=== PATIENT | male | born 1940 | race African-American/Black ===

== ENCOUNTER 2016-11-23 15:03 | Inpatient (IN) | payer MEDICARE, OTHER ==
[2016-11-23] MEDS ORDERED: NORMAL SALINE 1000 ML 1,000 ML IV ONE (15:41)
[2016-11-23] MEDS ORDERED: ASPIRIN 81 MG TABLET, CHEWABLE PO ONE (15:41)
[2016-11-23 16:34] LABS: PROTHROMBIN TIME 14.1 SEC (11.4-15.4)
[2016-11-23 16:35] LABS: ABSOLUTE EOSINOPHILS # (AUTO) 0.3 10^3/uL (0.0-0.6); ABSOLUTE LYMPHOCYTES (AUTO) 0.5 10^3/uL (0.5-4.7); ABSOLUTE MONOCYTES (AUTO) 0.4 10^3/uL (0.1-1.4); ABSOLUTE NEUT (AUTO) 3.4 10^3/uL (1.7-8.2); BASOPHILS % (AUTO) 0.4 % (0-2); EOSINOPHILS % (AUTO) 5.9 % (0-6); HEMATOCRIT 33.5 % (37.9-51.0); HEMOGLOBIN 11.3 g/dL (13.5-17.0); HGB HCT DIFFERENCE 0.4; LYMPHOCYTES % (AUTO) 11.1 % (13-45); MEAN CORPUSCULAR HEMOGLOBIN 30.6 pg (27.0-33.4); MEAN CORPUSCULAR HGB CONC 33.7 g/dL (32.0-36.0); MEAN CORPUSCULAR VOLUME 91 fl (80-97); RED BLOOD COUNT 3.69 10^6/uL (4.35-5.55); RED CELL DISTRIBUTION WIDTH 14.6 % (11.5-14.0); SEGMENTED NEUTROPHILS % (AUTO) 74.6 % (42-78); WHITE BLOOD COUNT 4.6 10^3/uL (4.0-10.5)
[2016-11-23 16:48] LABS: ALANINE AMINOTRANSFERASE 28 U/L (21-72); ALBUMIN 3.2 g/dL (3.5-5.0); ALKALINE PHOSPHATASE 102 U/L (38-126); ANION GAP 11 (5-19); ASPARTATE AMINO TRANSFERASE 20 U/L (17-59); BILIRUBIN,DIRECT 0.2 mg/dL (0.0-0.4); BILIRUBIN,TOTAL 0.7 mg/dL (0.2-1.3); BLOOD UREA NITROGEN 14 mg/dL (7-20); CALCIUM 8.8 mg/dL (8.4-10.2); CARBON DIOXIDE 23 mmol/L (22-30); CHLORIDE 106 mmol/L (98-107); CREATINE KINASE 71 U/L (55-170); CREATININE RESULT 0.95 mg/dL (0.52-1.25); GLUCOSE 104 mg/dL (75-110); POTASSIUM 4.3 mmol/L (3.6-5.0); SODIUM 140.4 mmol/L (137-145); TOTAL PROTEIN 5.6 g/dL (6.3-8.2)
[2016-11-23 16:57] LABS: CREATINE KINASE MB 0.37 ng/mL (<4.55)
[2016-11-23 16:59] LABS: TROPONIN I < 0.012 ng/mL
--- NOTE | 2016-11-23 17:08 | ER Document Report ---
ED Syncope and Near Syncope - General Mode of Arrival: Medic Information source: Patient TRAVEL OUTSIDE OF THE [place] IN LAST 30 DAYS: No - HPI Patient complains to provider of: Fainting Context: Other - See above <SARIKA HARTLEY - Last Filed: 11/23/16 18:47> <SAMANTHA ANGELO - Last Filed: 11/23/16 22:23> - General Chief Complaint: Passed Out Prior to Arrival Stated Complaint: POSSIBLE SYNCOPE Time Seen by Provider: 11/23/16 17:05 Notes: Patient is a 76 year old male, with a past medical history including CAD and pacemaker insertion, who presents to the emergency department complaining of syncope just prior to arrival. Patient reports that he felt lightheaded and then lost consciousness and woke up on the floor. Patient also complains of nausea, mild chest pain, and a cough onset 2 days ago. Patient states that he has been eating and drinking normally and his blood pressure is usually fine. Patient denies vomiting, diarrhea, fever, urinary problems, abdominal pain, back pain, and any recent changes in medications. PCP: Dr. Dockery (SARIKA HARTLEY) - Related Data Allergies/Adverse Reactions: iodine [Iodine] Allergy (Unknown, Verified 11/23/16 15:26) Itching morphine [Morphine] Allergy (Verified 11/23/16 15:26) itching oxycodone HCl [From Percocet] Allergy (Verified 11/23/16 15:26) Hallucinations Home Medications: Current Home Medications Amlodipine Besylate 10 mg PO DAILY 11/23/16 [History] Colchicine [Colcrys] 1 tab PO BID 11/23/16 [History] Fexofenadine HCl [Allergy Relief] 1 tab PO PRN PRN 11/23/16 [History] Fluticasone Propionate [Flonase Allergy Relief] 1 spray IN DAILY 11/23/16 [ History] Multivit-Min/FA/Lycopen/Lutein [Centrum Silver Men Tablet] 1 each PO DAILY 11/23 [History] Nitroglycerin [Nitrostat 0.4 mg (1/150 Gr) Tabs 25/] 1 tab SL Q5MP PRN [History] Ranolazine [Ranexa 500 mg Tab.sr] 1,000 mg PO Q12 11/23/16 [History] Telmisartan [Micardis 20 mg Tablet] 1 tab PO DAILY 11/23/16 [History] Past Medical History - General Information source: Patient - Social History Smoking Status: Unknown if Ever Smoked Family History: Reviewed & Not Pertinent - Past Medical History Cardiac Medical History: Reports: Hx Coronary Artery Disease, Hx Heart Attack, Hx Hypercholesterolemia, Hx Hypertension Musculoskeltal Medical History: Reports Hx Arthritis Past Surgical History: Reports: Hx Appendectomy, Hx Cardiac Surgery - Pacemaker , Hx Cholecystectomy, Hx Open Heart Surgery - CABG April, Hx Orthopedic Surgery - Knee replacement - Immunizations Immunizations up to date: Yes Hx Diphtheria, Pertussis, Tetanus Vaccination: Yes Hx Pneumococcal Vaccination: 09/01/08 <SARIAK HARTLEY - Last Filed: 11/23/16 18:47> Review of Systems - Review of Systems Constitutional: denies: Fever EENT: No symptoms reported Cardiovascular: See HPI, Chest pain, Syncope, Lightheaded Respiratory: See HPI, Cough Gastrointestinal: See HPI, Nausea. denies: Abdominal pain, Diarrhea, Vomiting Genitourinary: denies: Other - Urinary problems Male Genitourinary: No symptoms reported Musculoskeletal: denies: Back pain Skin: No symptoms reported Hematologic/Lymphatic: No symptoms reported Neurological/Psychological: No symptoms reported -: Yes All other systems reviewed and negative <SARIKA HARTLEY - Last Filed: 11/23/16 18:47> Course - Laboratory Result Diagrams: 11/23/16 16:05 11/23/16 16:05 - Consults Dr. Zepeda Time consulted: 17:15 - Told to contact Dr. Barrios Dr. Barrios Time consulted: 17:15 - Discussed admission of patient for pneumonia <SARIKA HARTLEY - Last Filed: 11/23/16 18:47> - Laboratory Result Diagrams: 11/23/16 16:05 11/23/16 16:05 <SAMANTHA ANGELO - Last Filed: 11/23/16 22:23> - Re-evaluation Re-evalutation: 11/23/16 Patient is a 76-year-old male who comes in after having an episode of near- syncope at home. Patient had a pressure 80s over 40s initially. Patient denies any fever. Has had cough at home. No chest pain. Patient's blood pressure has responded well to fluids. Possible pneumonia on x-ray. Discussed with hospitalist service. Antibiotics will be initiated and culture sent. Patient appears well at this time. Will be admitted to the IMCU. Stable at time of admission. 11/23/16 22:22 In reviewing chart, not sure why antibiotics were not patient initiated earlier. Was my understanding that Levaquin had been ordered. Delayed did not exceed 6 hours from presentation. (SAMANTHA ANGELO) - Vital Signs Vital signs: Temp Pulse Resp BP Pulse Ox 98.0 F 70 16 107/70 93 11/23/16 15:25 11/23/16 20:43 11/23/16 20:43 11/23/16 19:21 11/23/16 20:43 - Laboratory Laboratory results interpreted by me: 11/23/16 11/23/16 16:05 16:05 RBC 3.69 L Hgb 11.3 L Hct 33.5 L RDW 14.6 H Plt Count 132 L Lymphocytes % 11.1 L Total Protein 5.6 L Albumin 3.2 L Critical Care Note - Critical Care Note Total time excluding time spent on procedures (mins): 35 - evaluation and management of syncope, hypotension, multiple re-evaluations, coordination of admission, counseling of patient <SAMANTHA ANGELO - Last Filed: 11/23/16 22:23> Discharge <SARIKA HARTLEY - Last Filed: 11/23/16 18:47> - Discharge Admitting Provider: Hospitalist - [facility] Admitted: [facility] <SAMANTHA ANGELO - Last Filed: 11/23/16 22:23> - Discharge Clinical Impression: Pneumonia Qualifiers: Pneumonia type: due to unspecified organism Laterality: unspecified laterality Lung location: unspecified part of lung Qualified Code(s): J18.9 - Pneumonia, unspecified organism Condition: Stable Disposition: ADMITTED INPATIENT Scribe Attestation: 11/23/16 22:23 I personally performed the services described in the documentation, reviewed and edited the documentation which was dictated to the scribe in my presence, and it accurately records my words and actions. (SAMANTHA ANGELO) Scribe Documentation - Scribe Written by Jesica:: jesica Velasco, 11/23/16, [id number] acting as scribe for :: Jillian <SARIKA HARTLEY - Last Filed: 11/23/16 18:47>
[2016-11-23] MEDS ORDERED: ACETAMINOPHEN 325 MG TABLET PO PRN (17:22)
[2016-11-23] MEDS: DEXTROSE 5%-1/2 NORMAL SALINE 1,000 ML IV PRN (17:50)
--- NOTE | 2016-11-23 18:58 | PDOC H&P ---
History of Present Illness Admission Date/PCP: 11/23/16 17:22 LUIS JUAREZ MD Patient complains of: Syncope. Productive cough. Poor oral intake. History of Present Illness: JULIANA BADILLO JR is a 76 year old male with a background history of hypertension, hyperlipidemia, coronary artery disease, history of [place], history of CABG, history of CHF, status post permanent pacemaker, on various cardiac medications. For the past week he has not been feeling well, with some night sweats, and a cough that has become gradually more severe and productive of greenish phlegm. With that, his appetite has worsened. He admits to not eating or drinking sufficiently. 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 In the emergency department, his initial blood pressure was 80/40. His laboratories were largely benign. He was not hypoxic. Chest x-ray showed minimal left base atelectasis. The patient is admitted for further evaluation and treatment. Past Medical History Cardiac Medical History: Reports: Coronary Artery Disease, Myocardial Infarction , Hyperlipidema, Hypertension Pulmonary Medical History: Denies: Tuberculosis Neurological Medical History: Denies: Seizures Musculoskeltal Medical History: Reports: Arthritis Past Surgical History Past Surgical History: Reports: Appendectomy, Cholecystectomy, Orthopedic Surgery - Knee replacement Social History Smoking Status: Former Smoker Frequency of Alcohol Use: Rare Hx Recreational Drug Use: No Hx Prescription Drug Abuse: No - Advance Directive Resuscitation Status: Full Code Family History Family History: Reviewed & Not Pertinent Parental Family History Reviewed: Yes Children Family History Reviewed: Yes Sibling(s) Family History Reviewed.: Yes Medication/Allergy Home Medications: Aspirin [Aspirin 325 mg Tablet] 325 mg PO DAILY 06/04/13 Citalopram Hydrobromide [Celexa 40 mg Tablet] 20 mg PO DAILY 06/04/13 Metoprolol Tartrate [Lopressor 50 mg Tablet] 100 mg PO Q12H 06/04/13 Omeprazole 20 mg PO DAILY 06/04/13 Rosuvastatin Calcium [Crestor 10 mg Tablet] 10 mg PO DAILY 06/04/13 Tramadol HCl 50 mg PO Q6 PRN 06/04/13 Benzonatate [Tessalon Perles 100 mg Capsule] 100 mg PO ASDIR PRN #40 capsule Amlodipine Besylate 10 mg PO DAILY 11/23/16 Colchicine [Colcrys] 1 tab PO BID 11/23/16 Fexofenadine HCl [Allergy Relief] 1 tab PO PRN PRN 11/23/16 Fluticasone Propionate [Flonase Allergy Relief] 1 spray IN DAILY 11/23/16 Multivit-Min/FA/Lycopen/Lutein [Centrum Silver Men Tablet] 1 each PO DAILY 11/23 Nitroglycerin [Nitrostat 0.4 mg (1/150 Gr) Tabs 25/Bottle] 1 tab SL Q5MP PRN Ranolazine [Ranexa 500 mg Tab.sr] 1,000 mg PO Q12 11/23/16 Telmisartan [Micardis 20 mg Tablet] 1 tab PO DAILY 11/23/16 Allergies/Adverse Reactions: iodine [Iodine] Allergy (Unknown, Verified 11/23/16 15:26) Itching morphine [Morphine] Allergy (Verified 11/23/16 15:26) itching oxycodone HCl [From Percocet] Allergy (Verified 11/23/16 15:26) Hallucinations Review of Systems Constitutional: PRESENT: night sweats. ABSENT: chills, fever(s), headache(s), weight gain, weight loss Eyes: ABSENT: visual disturbances Ears: ABSENT: hearing changes Cardiovascular: PRESENT: as per HPI. ABSENT: chest pain, dyspnea on exertion, edema, orthropnea, palpitations Respiratory: PRESENT: as per HPI, cough, sputum. ABSENT: hemoptysis Gastrointestinal: ABSENT: abdominal pain, constipation, diarrhea, hematemesis, hematochezia, nausea, vomiting Genitourinary: PRESENT: difficulty urinating. ABSENT: dysuria, hematuria Musculoskeletal: ABSENT: joint swelling Integumentary: ABSENT: rash, wounds Neurological: ABSENT: abnormal gait, abnormal speech, confusion, dizziness, focal weakness, syncope Psychiatric: ABSENT: anxiety, depression, homidical ideation, suicidal ideation Endocrine: ABSENT: cold intolerance, heat intolerance, polydipsia, polyuria Hematologic/Lymphatic: ABSENT: easy bleeding, easy bruising Physical Exam Vital Signs: Temp Pulse Resp BP Pulse Ox 98.0 F 70 18 125/80 94 11/23/16 15:25 11/23/16 15:25 11/23/16 18:03 11/23/16 18:03 11/23/16 18:03 General appearance: PRESENT: well-developed, well-nourished, other - frequenst loose cough Head exam: PRESENT: atraumatic, normocephalic Eye exam: PRESENT: conjunctiva pink, EOMI, PERRLA. ABSENT: scleral icterus Ear exam: PRESENT: normal external ear exam Mouth exam: PRESENT: moist, tongue midline Neck exam: ABSENT: carotid bruit, JVD, lymphadenopathy, thyromegaly Respiratory exam: PRESENT: wheezes. ABSENT: rales, rhonchi Cardiovascular exam: PRESENT: RRR. ABSENT: diastolic murmur, rubs, systolic murmur Pulses: PRESENT: normal dorsalis pedis pul Vascular exam: PRESENT: normal capillary refill GI/Abdominal exam: PRESENT: normal bowel sounds, soft. ABSENT: distended, guarding, mass, organolmegaly, rebound, tenderness Rectal exam: PRESENT: deferred Extremities exam: PRESENT: full ROM. ABSENT: calf tenderness, clubbing, pedal edema Neurological exam: PRESENT: alert, awake, oriented to person, oriented to place , oriented to time, oriented to situation, CN II-XII grossly intact. ABSENT: motor sensory deficit Psychiatric exam: PRESENT: appropriate affect, normal mood. ABSENT: homicidal ideation, suicidal ideation Skin exam: PRESENT: dry, intact, warm. ABSENT: cyanosis, rash Results Impressions: Chest X-Ray 11/23/16 15:41 IMPRESSION: Minimal left basilar atelectasis no other significant findings. Assessment & Plan - Diagnosis (1) Acute asthmatic bronchitis Is this a current diagnosis for this admission?: YesPlan: We'll culture sputum. We'll start antibiotics. We will add nebulized bronchodilator. (2) Dehydration Is this a current diagnosis for this admission?: YesPlan: We will rehydrate with IV fluids. (3) CAD (coronary artery disease) Qualifiers: Coronary Disease-Associated Artery/Lesion type: [place] artery [place] vs. transplanted heart: jamul heart Associated angina: without angina Qualified Code(s): I25.10 - Atherosclerotic heart disease of jamul coronary artery without angina pectoris Is this a current diagnosis for this admission?: YesPlan: Continue current Rx. (4) HTN (hypertension) Is this a current diagnosis for this admission?: YesPlan: Continue current Rx. Monitor blood pressure. (5) Hyperlipidemia Is this a current diagnosis for this admission?: YesPlan: Continue current Rx.
[2016-11-23] MEDS ORDERED: GUAIFENESIN/CODEINE PHOS 100-10 MG/ 5 ML UDC PO PRN (18:59)
[2016-11-23] MEDS ORDERED: LEVOFLOXACIN 750 MG/D5W RTU 750 MG/150 ML RTUPB IV SCH (20:00)
[2016-11-23] MEDS: IPRATROPIUM/ALBUTEROL 0.5-2.5 MG/3 ML AMPUL NEB SCH (20:43)
--- NOTE | 2016-11-23 22:20 | EKG REPORT ---
SEVERITY:- ABNORMAL ECG - SINUS RHYTHM NONSPECIFIC ANTEROSEPTAL T CHANGES : Confirmed by: Nelson Jamison MD 23-Nov-2016 17:37:58
[2016-11-24] MEDS: DEXTROSE 5%-1/2 NORMAL SALINE 1,000 ML IV PRN (04:03)
[2016-11-24 05:00] LABS: ABSOLUTE EOSINOPHILS # (AUTO) 0.3 10^3/uL (0.0-0.6); ABSOLUTE LYMPHOCYTES (AUTO) 0.7 10^3/uL (0.5-4.7); ABSOLUTE MONOCYTES (AUTO) 0.4 10^3/uL (0.1-1.4); BASOPHILS % (AUTO) 0.4 % (0-2); EOSINOPHILS % (AUTO) 7.8 % (0-6); HEMATOCRIT 34.9 % (37.9-51.0); HEMOGLOBIN 11.8 g/dL (13.5-17.0); HGB HCT DIFFERENCE 0.5; LYMPHOCYTES % (AUTO) 21.1 % (13-45); MEAN CORPUSCULAR HEMOGLOBIN 30.6 pg (27.0-33.4); MEAN CORPUSCULAR HGB CONC 33.8 g/dL (32.0-36.0); MEAN CORPUSCULAR VOLUME 91 fl (80-97); MONOCYTES % (AUTO) 11.6 % (3-13); RED BLOOD COUNT 3.85 10^6/uL (4.35-5.55); RED CELL DISTRIBUTION WIDTH 14.6 % (11.5-14.0); SEGMENTED NEUTROPHILS % (AUTO) 59.1 % (42-78); WHITE BLOOD COUNT 3.4 10^3/uL (4.0-10.5)
[2016-11-24 05:26] LABS: ANION GAP 8 (5-19); BLOOD UREA NITROGEN 11 mg/dL (7-20); CARBON DIOXIDE 25 mmol/L (22-30); CHLORIDE 107 mmol/L (98-107); CREATININE RESULT 0.78 mg/dL (0.52-1.25); GLUCOSE 100 mg/dL (75-110); POTASSIUM 4.1 mmol/L (3.6-5.0); SODIUM 140.2 mmol/L (137-145)
[2016-11-24] MEDS: IPRATROPIUM/ALBUTEROL 0.5-2.5 MG/3 ML AMPUL NEB SCH ×3 (07:50→15:50)
[2016-11-24] MEDS ORDERED: ENOXAPARIN SODIUM INJ 40 MG/0.4 ML DISP.SYRIN SUBCUT SCH (08:00)
--- NOTE | 2016-11-24 15:30 | PDOC DISCHARGE SUMMARY ---
General - Admit/Disc Date/PCP Admission Date/Primary Care Provider: 11/23/16 17:22 LUIS JUAREZ MD Discharge Date: 11/24/16 - rapidly improved. - Discharge Diagnosis (1) Acute asthmatic bronchitis Is this a current diagnosis for this admission?: YesSummary: Patient was admitted after a bout of dizziness and faint related to a cough, mild wheeze, and relative dehydration. His initial blood pressure in the emergency department was 80/40. He was treated with IV fluids and IV Levaquin. He very rapidly improved. By the following morning his breathing was unlabored, the cough was slightly productive, the wheezes had resolved, he was no longer dizzy, and his blood pressure normalized. He will complete a 10 day course of oral Levaquin as an outpatient. (2) Dehydration Is this a current diagnosis for this admission?: YesSummary: This resolved with IV fluid hydration. He is now eating and drinking in sufficient amounts. (3) CAD (coronary artery disease) Is this a current diagnosis for this admission?: YesSummary: The patient had no chest pain. Troponin was negative. (4) HTN (hypertension) Is this a current diagnosis for this admission?: YesSummary: His admission hypotension rapidly corrected with IV fluids. (5) Hyperlipidemia Is this a current diagnosis for this admission?: Yes - Additional Information Resuscitation Status: Full Code Discharge Diet: Cardiac Discharge Activity: Activity As Tolerated Home Medications: Aspirin [Aspirin 325 mg Tablet] 325 mg PO DAILY 06/04/13 Citalopram Hydrobromide [Celexa 40 mg Tablet] 20 mg PO DAILY 06/04/13 Metoprolol Tartrate [Lopressor 50 mg Tablet] 100 mg PO Q12H 06/04/13 Omeprazole 20 mg PO DAILY 06/04/13 Rosuvastatin Calcium [Crestor 10 mg Tablet] 10 mg PO DAILY 06/04/13 Tramadol HCl 50 mg PO Q6 PRN 06/04/13 Benzonatate [Tessalon Perles 100 mg Capsule] 100 mg PO ASDIR PRN #40 capsule Amlodipine Besylate 10 mg PO DAILY 11/23/16 Colchicine [Colcrys] 1 tab PO BID 11/23/16 Fexofenadine HCl [Allergy Relief] 1 tab PO PRN PRN 11/23/16 Fluticasone Propionate [Flonase Allergy Relief] 1 spray IN DAILY 11/23/16 Multivit-Min/FA/Lycopen/Lutein [Centrum Silver Men Tablet] 1 each PO DAILY 11/23 Nitroglycerin [Nitrostat 0.4 mg (1/150 Gr) Tabs 25/Bottle] 1 tab SL Q5MP PRN Ranolazine [Ranexa 500 mg Tab.sr] 1,000 mg PO Q12 11/23/16 Telmisartan [Micardis 20 mg Tablet] 1 tab PO DAILY 11/23/16 Levofloxacin [Levaquin 500 mg Tablet] 500 mg PO DAILY #10 tablet 11/24/16 History of Present Illness Patient complains of: Syncope. Productive cough. Poor oral intake. History of Present Illness: JULIANA BADILLO JR is a 76 year old male with a background history of hypertension, hyperlipidemia, coronary artery disease, history of [place], history of CABG, history of CHF, status post permanent pacemaker, on various cardiac medications. For the past week he has not been feeling well, with some night sweats, and a cough that has become gradually more severe and productive of greenish phlegm. With that, his appetite has worsened. He admits to not eating or drinking sufficiently. 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 In the emergency department, his initial blood pressure was 80/40. His laboratories were largely benign. He was not hypoxic. Chest x-ray showed minimal left base atelectasis. The patient was admitted for further evaluation and treatment. Hospital Course Hospital Course: The patient was treated with IV fluids and IV Levaquin. His admission symptoms rapidly resolved. He was no longer dizzy. He ambulated without difficulty. His dry cough became loose and minimally productive. His wheezes resolved. His mild hypotension corrected. Physical Exam Vital Signs: Temp Pulse Resp BP Pulse Ox 97.5 F 88 16 125/63 96 11/24/16 11:16 11/24/16 14:00 11/24/16 12:08 11/24/16 11:16 11/24/16 12:08 Intake & Output 11/23/16 11/24/16 11/25/16 06:59 06:59 06:59 Intake Total 1712 Balance 1712 Weight 66.3 kg Additional comments: General appearance: PRESENT: well-developed, well-nourished, other - frequenst loose cough Head exam: PRESENT: atraumatic, normocephalic Eye exam: PRESENT: conjunctiva pink, EOMI, PERRLA. ABSENT: scleral icterus Ear exam: PRESENT: normal external ear exam Mouth exam: PRESENT: moist, tongue midline Neck exam: ABSENT: carotid bruit, JVD, lymphadenopathy, thyromegaly Respiratory exam: PRESENT: wheezes resolved ABSENT: rales, rhonchi Cardiovascular exam: PRESENT: RRR. ABSENT: diastolic murmur, rubs, systolic murmur Pulses: PRESENT: normal dorsalis pedis pul Vascular exam: PRESENT: normal capillary refill GI/Abdominal exam: PRESENT: normal bowel sounds, soft. ABSENT: distended, guarding, mass, organolmegaly, rebound, tenderness Rectal exam: PRESENT: deferred Extremities exam: PRESENT: full ROM. ABSENT: calf tenderness, clubbing, pedal edema Neurological exam: PRESENT: alert, awake, oriented to person, oriented to place , oriented to time, oriented to situation, CN II-XII grossly intact. ABSENT: motor sensory deficit Psychiatric exam: PRESENT: appropriate affect, normal mood. ABSENT: homicidal ideation, suicidal ideation Skin exam: PRESENT: dry, intact, warm. ABSENT: cyanosis, rash Results Laboratory Results: 11/24/16 04:13 11/24/16 04:13 11/24/16 11/24/16 04:13 04:13 WBC 3.4 L RBC 3.85 L Hgb 11.8 L Hct 34.9 L MCV 91 MCH 30.6 MCHC 33.8 RDW 14.6 H Plt Count 118 L Seg Neutrophils % 59.1 Lymphocytes % 21.1 Monocytes % 11.6 Eosinophils % 7.8 H Basophils % 0.4 Absolute Neutrophils 2.0 Absolute Lymphocytes 0.7 Absolute Monocytes 0.4 Absolute Eosinophils 0.3 Absolute Basophils 0.0 Sodium 140.2 Potassium 4.1 Chloride 107 Carbon Dioxide 25 Anion Gap 8 BUN 11 Creatinine 0.78 Est GFR ( Amer) > 60 Est GFR (Non-Af Amer) > 60 Glucose 100 Calcium 9.0 Impressions: Chest X-Ray 11/23/16 15:41 IMPRESSION: Minimal left basilar atelectasis no other significant findings. Qualifiers PATEINT BEING DISCHARGED WITH ANY OF THE FOLLOWING DIAGNOSIS?: No Plan Time Spent: Less than 30 Minutes
[2016-11-24 16:24] VITALS: BP 132/74
[2016-11-25] MEDS ORDERED: LEVOFLOXACIN 500 MG TABLET PO SCH (10:00)
== END 2016-11-24 16:46 | disposition home or self-care (01) | DRG 203 ==
LOC: ER 15:03 → EH 17:22 → UNDOADMIN 17:36 → 3N 20:18
DX: J45.901 Unspecified asthma with (acute) exacerbation (principal); R55 Syncope and collapse; I25.10 Atherosclerotic heart disease of native coronary artery without angina pectoris; E78.5 Hyperlipidemia, unspecified; I10 Essential (primary) hypertension; I25.2 Old myocardial infarction; Z79.82 Long term (current) use of aspirin; Z79.899 Other long term (current) drug therapy; Z95.0 Presence of cardiac pacemaker
CPT/HCPCS: 36415; 71010; 80048; 80053; 82550; 82553; 84484; 85025; 85610; 87040; 93005; 93010; 96360; 99291; J1956; J7030; J7620

== ENCOUNTER 2016-12-24 16:13 | Observation (INO) | payer MEDICARE, OTHER ==
[2016-12-24] MEDS ORDERED: ASPIRIN 81 MG TABLET, CHEWABLE PO ONE (17:29)
--- NOTE | 2016-12-24 17:29 | ER Document Report ---
ED Medical Screen (RME) - General Chief Complaint: Low Blood Pressure Stated Complaint: LOW BLOOD PRESSURE CONCERNS Mode of Arrival: Wheelchair Information source: Patient Notes: 76-year-old male history of 3 stents to LAD bypass with his nitroglycerin whenever he has chest pain presents with complaints of initially low blood pressure 104/74 and then after the blood pressure issue noted to have chest pain when he was walking up and down stairs. Patient took 2 nitroglycerin and the chest pain resolved I have greeted and performed a rapid initial assessment of this patient. A comprehensive ED assessment and evaluation of the patient, analysis of test results and completion of the medical decision making process will be conducted by additional ED providers. PHYSICAL EXAMINATION: GENERAL: Well-appearing, well-nourished and in no acute distress. HEAD: Atraumatic, normocephalic. EYES: Pupils equal round extraocular movements intact, conjunctiva are normal. ENT: Nares patent NECK: Normal range of motion LUNGS: No respiratory distress Musculoskeletal: Normal range of motion NEUROLOGICAL: Normal speech, normal gait. PSYCH: Normal mood, normal affect. SKIN: Warm, Dry, normal turgor, no rashes or lesions noted. TRAVEL OUTSIDE OF THE [place] IN LAST 30 DAYS: No - Related Data Allergies/Adverse Reactions: iodine [Iodine] Allergy (Unknown, Verified 12/24/16 17:18) Itching morphine [Morphine] Allergy (Verified 12/24/16 17:18) itching oxycodone HCl [From Percocet] Allergy (Verified 12/24/16 17:18) Hallucinations Past Medical History - Past Medical History Cardiac Medical History: Reports: Hx Coronary Artery Disease, Hx Heart Attack, Hx Hypercholesterolemia, Hx Hypertension Pulmonary Medical History: Denies: Hx Tuberculosis Neurological Medical History: Denies: Hx Seizures Renal/ Medical History: Denies: Hx Peritoneal Dialysis Musculoskeltal Medical History: Reports Hx Arthritis Past Surgical History: Reports: Hx Appendectomy, Hx Cardiac Surgery - Pacemaker , Hx Cholecystectomy, Hx Open Heart Surgery - CABG April, Hx Orthopedic Surgery - Knee replacement - Immunizations Immunizations up to date: Yes Hx Diphtheria, Pertussis, Tetanus Vaccination: Yes Physical Exam - Vital signs Vitals: Temp Pulse Resp BP Pulse Ox 97.4 F 70 16 104/63 95 12/24/16 16:21 12/24/16 16:21 12/24/16 16:21 12/24/16 16:21 12/24/16 16:21 Course - Vital Signs Vital signs: Temp Pulse Resp BP Pulse Ox 97.4 F 70 16 104/63 95 12/24/16 16:21 12/24/16 16:21 12/24/16 16:21 12/24/16 16:21 12/24/16 16:21
[2016-12-24 17:49] LABS: ABSOLUTE EOSINOPHILS # (AUTO) 0.1 10^3/uL (0.0-0.6); ABSOLUTE LYMPHOCYTES (AUTO) 0.8 10^3/uL (0.5-4.7); ABSOLUTE MONOCYTES (AUTO) 0.4 10^3/uL (0.1-1.4); ABSOLUTE NEUT (AUTO) 2.6 10^3/uL (1.7-8.2); BASOPHILS % (AUTO) 0.4 % (0-2); EOSINOPHILS % (AUTO) 2.3 % (0-6); HEMATOCRIT 40.5 % (37.9-51.0); HEMOGLOBIN 13.6 g/dL (13.5-17.0); HGB HCT DIFFERENCE 0.3; LYMPHOCYTES % (AUTO) 20.5 % (13-45); MEAN CORPUSCULAR HEMOGLOBIN 30.5 pg (27.0-33.4); MEAN CORPUSCULAR HGB CONC 33.6 g/dL (32.0-36.0); MEAN CORPUSCULAR VOLUME 91 fl (80-97); MONOCYTES % (AUTO) 9.9 % (3-13); RED BLOOD COUNT 4.46 10^6/uL (4.35-5.55); RED CELL DISTRIBUTION WIDTH 14.9 % (11.5-14.0); SEGMENTED NEUTROPHILS % (AUTO) 66.9 % (42-78); WHITE BLOOD COUNT 3.9 10^3/uL (4.0-10.5)
[2016-12-24 18:04] LABS: ALANINE AMINOTRANSFERASE 37 U/L (21-72); ALBUMIN 4.1 g/dL (3.5-5.0); ALKALINE PHOSPHATASE 123 U/L (38-126); ANION GAP 9 (5-19); ASPARTATE AMINO TRANSFERASE 35 U/L (17-59); BILIRUBIN,DIRECT 0.1 mg/dL (0.0-0.4); BILIRUBIN,TOTAL 0.8 mg/dL (0.2-1.3); BLOOD UREA NITROGEN 17 mg/dL (7-20); CALCIUM 9.5 mg/dL (8.4-10.2); CARBON DIOXIDE 28 mmol/L (22-30); CHLORIDE 103 mmol/L (98-107); CREATINE KINASE 68 U/L (55-170); CREATININE RESULT 1.25 mg/dL (0.52-1.25); GLUCOSE 98 mg/dL (75-110); POTASSIUM 4.7 mmol/L (3.6-5.0); SODIUM 139.8 mmol/L (137-145); TOTAL PROTEIN 6.7 g/dL (6.3-8.2)
[2016-12-24 18:16] LABS: CREATINE KINASE MB 0.66 ng/mL (<4.55); TROPONIN I < 0.012 ng/mL
[2016-12-24] MEDS ORDERED: ONDANSETRON 4 MG TAB.RAPDIS SL ONE (18:26)
[2016-12-24] MEDS ORDERED: NORMAL SALINE 1000 ML 1,000 ML IV PRN ×2 (18:26→18:57)
--- NOTE | 2016-12-24 18:29 | ER Document Report ---
ED General - General Chief Complaint: Low Blood Pressure Stated Complaint: LOW BLOOD PRESSURE CONCERNS Time seen by provider: 18:27 Mode of Arrival: Wheelchair Information source: Patient TRAVEL OUTSIDE OF THE [place] IN LAST 30 DAYS: No - HPI Patient complains to provider of: chest pain, dizziness, nausea Onset: This afternoon Onset/Duration: Sudden Quality of pain: Achy Severity: Mild Pain Level: 2 Associated symptoms: Nausea, Shortness of breath Exacerbated by: Movement Relieved by: Denies Similar symptoms previously: Yes Notes: Patient is a 76-year-old male with a history of coronary artery disease with a previous three-vessel CABG, hypertension, as well as high cholesterol, who presents to the emergency room complaining of dizziness, with lightheadedness, chest pain, and nausea that started around 1:00 this afternoon, he states he was going up and down the stairs, started to feel a slight chest pain with shortness of breath, took 2 sublingual nitroglycerin, after that became very dizzy, developed a headache and nausea, and was concerned his blood pressure had dropped very low - Related Data Allergies/Adverse Reactions: iodine [Iodine] Allergy (Unknown, Verified 12/24/16 17:18) Itching morphine [Morphine] Allergy (Verified 12/24/16 17:18) itching oxycodone HCl [From Percocet] Allergy (Verified 12/24/16 17:18) Hallucinations Past Medical History - General Information source: Patient - Social History Smoking Status: Unknown if Ever Smoked Family History: Reviewed & Not Pertinent Patient has suicidal ideation: No Patient has homicidal ideation: No - Past Medical History Cardiac Medical History: Reports: Hx Coronary Artery Disease, Hx Heart Attack, Hx Hypercholesterolemia, Hx Hypertension Pulmonary Medical History: Denies: Hx Tuberculosis Neurological Medical History: Denies: Hx Seizures Renal/ Medical History: Denies: Hx Peritoneal Dialysis Musculoskeltal Medical History: Reports Hx Arthritis Past Surgical History: Reports: Hx Appendectomy, Hx Cardiac Surgery - Pacemaker , Hx Cholecystectomy, Hx Open Heart Surgery - CABG April, Hx Orthopedic Surgery - Knee replacement - Immunizations Immunizations up to date: Yes Hx Diphtheria, Pertussis, Tetanus Vaccination: Yes Hx Pneumococcal Vaccination: 10/02/16 Review of Systems - Review of Systems Constitutional: No symptoms reported EENT: No symptoms reported Cardiovascular: See HPI Respiratory: No symptoms reported Gastrointestinal: See HPI Genitourinary: No symptoms reported Male Genitourinary: No symptoms reported Musculoskeletal: No symptoms reported Skin: No symptoms reported Hematologic/Lymphatic: No symptoms reported Neurological/Psychological: See HPI -: Yes All other systems reviewed and negative Physical Exam - Vital signs Vitals: Temp Pulse Resp BP Pulse Ox 97.4 F 70 16 104/63 95 12/24/16 16:21 12/24/16 16:21 12/24/16 16:21 12/24/16 16:21 12/24/16 16:21 Interpretation: Normal - General General appearance: Appears well, Alert - HEENT Head: Normocephalic, Atraumatic Eyes: Normal Pupils: PERRL - Respiratory Respiratory status: No respiratory distress Chest status: Nontender Breath sounds: Normal Chest palpation: Normal - Cardiovascular Rhythm: Regular Heart sounds: Normal auscultation Murmur: No - Abdominal Inspection: Normal Distension: No distension Bowel sounds: Normal Tenderness: Nontender Organomegaly: No organomegaly - Back Back: Normal, Nontender - Extremities General upper extremity: Normal inspection, Nontender, Normal color, Normal ROM , Normal temperature General lower extremity: Normal inspection, Nontender, Normal color, Normal ROM , Normal temperature, Normal weight bearing. No: Moira's sign - Neurological Neuro grossly intact: Yes Cognition: Normal Orientation: AAOx4 [place] Coma Scale Eye Opening: Spontaneous [place] Coma Scale Verbal: Oriented [place] Coma Scale Motor: Obeys Commands Letty Coma Scale Total: 15 Speech: Normal Motor strength normal: LUE, RUE, LLE, RLE Sensory: Normal - Psychological Associated symptoms: Normal affect, Normal mood - Skin Skin Temperature: Warm Skin Moisture: Dry Skin Color: Normal Course - Vital Signs Vital signs: Temp Pulse Resp BP Pulse Ox 97.4 F 70 16 98/73 L 98 12/24/16 16:21 12/24/16 16:21 12/24/16 18:19 12/24/16 18:19 12/24/16 18:19 - Laboratory Result Diagrams: 12/24/16 17:35 12/24/16 17:35 Laboratory results interpreted by me: 12/24/16 12/24/16 17:35 17:35 WBC 3.9 L RDW 14.9 H Est GFR (Non-Af Amer) 56 L - Diagnostic Test Radiology reviewed: Image reviewed, Reports reviewed - EKG Interpretation by Me EKG shows normal: Sinus rhythm Rate: Normal Rhythm: NSR When compared to previous EKG there are: No significant change - Transfer of Care Care transferred to following provider: Dr. Morataya Discharge - Discharge Clinical Impression: Chest pain Qualifiers: Chest pain type: unspecified Qualified Code(s): R07.9 - Chest pain, unspecified Condition: Stable Disposition: ADMITTED OBSERVATION Admitting Provider: Hospitalist Unit Admitted: Telemetry
[2016-12-24] MEDS ORDERED: ENOXAPARIN SODIUM INJ 40 MG/0.4 ML DISP.SYRIN SUBCUT ONE (20:00)
--- NOTE | 2016-12-24 20:56 | PDOC CONSULTATION ---
Consultation Consult Date: 12/24/16 Attending physician:: PETER JAIN Consult reason:: Chest pain and CAD History of Present Illness Admission Date/PCP: 12/24/16 18:58 LUIS JUAREZ MD Patient complains of: Chest pain History of Present Illness: 76-year-old male history of CABG, 2-3 vessel bypass who presented to the emergency department with chest pain. Patient usually treats his chest pain with nitroglycerin. Patient noted chest pain when he was walking up and down stairs. Patient took 2 nitroglycerin and the chest pain resolved. However subsequently he felt his blood pressure to be coming low therefore he came to the emergency room and was admitted for further evaluation. Patient claims he had a recent stress test just about 2 months ago at [place] which was reported to be unremarkable. Patient also gives a history of defibrillator placement. He gives history of weak heart muscles. Patient describes history of insomnia. Patient denied any recent defibrillator shocks. His last defibrillator shock was about 3 years ago when this was placed. Patient denied any recent syncope, near syncope or sustained palpitations. Past Medical History Cardiac Medical History: Reports: Coronary Artery Disease, Myocardial Infarction , Hyperlipidema, Hypertension Pulmonary Medical History: Denies: Tuberculosis Neurological Medical History: Denies: Seizures Musculoskeltal Medical History: Reports: Arthritis Past Surgical History Past Surgical History: Reports: Appendectomy, Cholecystectomy, Coronary Artery Bypass Graft, Internal Defibrillator, Orthopedic Surgery - Knee replacement Social History Information Source: Patient Smoking Status: Former Smoker Frequency of Alcohol Use: None Hx Recreational Drug Use: No Drugs: None Hx Prescription Drug Abuse: No - Advance Directive Resuscitation Status: Full Code Surrogate healthcare decision maker:: Patient is the surrogate decision maker. Family History Family History: Reviewed & Not Pertinent, CAD Parental Family History Reviewed: Yes Children Family History Reviewed: Yes Sibling(s) Family History Reviewed.: Yes Medication/Allergy Home Medications: Amlodipine Besylate [Norvasc 5 mg Tablet] 5 mg PO DAILY 12/24/16 Aspirin [Ecotrin] 325 mg PO DAILY 12/24/16 Citalopram Hydrobromide [Celexa 20 mg Tablet] 20 mg PO DAILY 12/24/16 Colchicine [Colchicine 0.6 mg Tablet] 0.6 mg PO BID 12/24/16 Fexofenadine HCl [Jacki] 180 mg PO DAILYP PRN 12/24/16 Fluticasone Propionate [Flonase Nasal [place] 50 Mcg/[place] 16 gm] 1 spray NASL QPM 12/24/16 Metoprolol Tartrate [Lopressor 100 mg Tablet] 100 mg PO Q12 12/24/16 Multivit-Min/FA/Lycopen/Lutein [Centrum Silver Men Tablet] 1 tab PO DAILY Nitroglycerin [Nitrostat 0.4 mg (1/150 Gr) Tabs 25/Bottle] 0.4 mg PO Q5MP PRN Omeprazole 20 mg PO ACBRKFST 12/24/16 Ranolazine [Ranexa] 1,000 mg PO Q12 12/24/16 Rosuvastatin Calcium [Crestor 10 mg Tablet] 10 mg PO DAILY 12/24/16 Telmisartan [Micardis 20 mg Tablet] 20 mg PO DAILY 12/24/16 Tramadol HCl [Ultram 50 mg Tablet] 50 mg PO Q6HP PRN 12/24/16 Allergies/Adverse Reactions: iodine [Iodine] Allergy (Unknown, Verified 12/24/16 17:18) Itching morphine [Morphine] Allergy (Verified 12/24/16 17:18) itching oxycodone HCl [From Percocet] Allergy (Verified 12/24/16 17:18) Hallucinations Review of Systems Review of Systems: Please see history of present illness and past medical history as wall. Constitutional: No fever or chills reported. Head : No recent chronic headaches, recent head injury. Eyes: No recent eye pain, diplopia, redness, discharge, acute visual changes. Ears: No recent chronic ear pain, acute hearing loss, ear discharge. Oral cavity: No recent ulcerations, bleeding, oral cavity discomfort. Neck: No recent acute neck pain reported. Hematologic: No recent easy bruising or bleeding or hematologic malignancy reported. Lymphatic: No recent lymphatic malignancy, chronic lymphadenopathy reported yet Cardiovascular system review: See history of present illness. Respiratory system review: No recent chronic cough, hemoptysis, blood clots in the lungs reported. Mild Shortness of breath on exertion Gastrointestinal system review: Negative for any recent acute or chronic abdominal pain, hematemesis, melena, recent change in bowel habits. Genitourinary system review: No recent acute or chronic hematuria, flank pain, UTI etc. reported. Skin system review: Negative for any recent abnormal bruising, no rash, no pruritus reported. Neurologic: No prior history of strokes, mini strokes, seizure disorder. Psychologic: No history of major psychosis or major depression reported. Musculoskeletal: Minor aches and pains reported. No acute joint swelling reported. Endocrine: No recent polyuria, polydipsia, recent heat or cold intolerance. Physical Exam Vital Signs: Temp Pulse Resp BP Pulse Ox 97.4 F 70 17 116/79 100 12/24/16 16:21 12/24/16 16:21 12/24/16 19:01 12/24/16 19:01 12/24/16 19:01 Exam: GENERAL: well-nourished and in no acute distress. Alert and oriented x3 HEAD: Atraumatic, normocephalic. EYES: Pupils equal round and reactive to light, extraocular movements intact, sclera anicteric, conjunctiva are normal. ENT: TMs normal, nares patent, oropharynx clear without exudates. Moist mucous membranes. No oral ulcerations or bleeding gums noted NECK: supple without lymphadenopathy. Trachea is central. No cervical or axillary lymphadenopathy noted. Carotids are 2+, JVD WNL LUNGS: Respiration seems nonlabored, no significant accessory muscle action noted. Breath sounds clear to auscultation bilaterally and equal noted. No wheezes rales or rhonchi noted. No significant dullness noted on percussion. CHEST: Palpation of the chest wall shows no significant chest wall tenderness. No other significant abnormalities noted. Defibrillator noted left side chest. HEART: [place] [employer], No PSH, 1/6 [place] aortic area, 1/6 moran systolic murmur mitral area, no rubs, no gallops. ABDOMEN: Soft, no significant tenderness appreciated, normoactive bowel sounds. No guarding, no rebound. No rigidity noted . No masses appreciated. EXTREMITIES: Pedal pulses are 1-2+, no calf tenderness noted. No clubbing or cyanosis.right more than left, 1+ pedal edema noted NEUROLOGICAL: Focused neurological exam showed no significant neurologic deficit. Normal speech, no focal weakness appreciated. PSYCH: Normal mood, normal affect. Judgment and insight within normal limits. SKIN: No significant ecchymosis, rash, ulcerations or signs of pruritus noted. MUSCULOSKELETAL EXAM: No significant joint swelling noted. Results EKG Comments: Sinus rhythm, possible prior inferior CT, nonspecific T inversion V1 to V3 consistent with ischemia however. Impressions: Chest X-Ray 12/24/16 17:29 IMPRESSION: NO ACUTE RADIOGRAPHIC FINDING IN THE CHEST. Assessment & Plan - Diagnosis (1) Chest pain Qualifiers: Chest pain type: unspecified Qualified Code(s): R07.9 - Chest pain, unspecified Is this a current diagnosis for this admission?: Yes (2) CAD (coronary artery disease) Qualifiers: Coronary Disease-Associated Artery/Lesion type: unspecified vessel or lesion type [place] vs. transplanted heart: [place] heart Associated angina: without angina Qualified Code(s): I25.10 - Atherosclerotic heart disease of [place] coronary artery without angina pectoris (3) HTN (hypertension) Is this a current diagnosis for this admission?: Yes (4) Hyperlipidemia Is this a current diagnosis for this admission?: Yes (5) Cardiac defibrillator in situ Is this a current diagnosis for this admission?: Yes - Notes Notes: Chest pain: There is high likelihood that it is probably from underlying CAD. Patient had recent stress test will try to obtain those results. At this point treat with optimization of medical management. This was discussed with the hospitalist. Recommend high potency statin, beta emigdio, Ranexa, ROQUE inhibitor /ARB therapy. CAD: Patient status post CABG. Will optimize therapy. Hypertension: Reasonably well controlled. Blood pressure goal in this patient is 135/85 or less. This was discussed with the patient. Currently blood pressure under reasonable control. Better medication for this patient are ROQUE inhibitor/ARB/beta emigdio etc. discussed side effects of uncontrolled hypertension and also severe hypotension. Hyperlipidemia: LDL goal is less than 70. Recommend statin therapy at least intermediate or high dose, of high potency status. Periodic lipid panel and liver panel is indicated. Patient to report any significant muscle discomfort or other side effects. Defibrillator: No recent defibrillator shocks. - Time Time Spent: 30 to 50 Minutes - CODE STATUS was discussed, patient remains full code. Surrogate decision-maker patient's . Multiple medical problems were addressed.More than 50% of the time spent coordinating care, discussing management plans with involved caregivers. Management plans discussed with involved personnels. Medical decision making was of moderate to high complexity , patient's has multiple severe comorbidities. Medications reviewed and adjusted accordingly: Yes
[2016-12-24] MEDS: PANTOPRAZOLE SODIUM 40 MG VIAL IV SCH (22:06)
--- NOTE | 2016-12-24 22:23 | EKG REPORT ---
SEVERITY:- ABNORMAL ECG - ATRIAL-PACED COMPLEXES BORDERLINE LEFT AXIS DEVIATION BORDERLINE T ABNORMALITIES, ANT-LAT LEADS : Confirmed by: Leroy Peña 24-Dec-2016 22:21:57
[2016-12-25 04:58] LABS: CHOLESTEROL 145.67 mg/dL (0-200); Direct HDL 55 mg/dL (>40); TRIGLYCERIDES 88 mg/dL (<150)
[2016-12-25 05:10] LABS: DIRECT LDL 66 mg/dL (<100)
--- NOTE | 2016-12-25 07:48 | EKG REPORT ---
SEVERITY:- ABNORMAL ECG - SINUS RHYTHM ABNORMAL T, CONSIDER ISCHEMIA, ANTERIOR LEADS : Confirmed by: Leroy Peña 25-Dec-2016 07:47:10
[2016-12-25] MEDS ORDERED: ENOXAPARIN SODIUM INJ 40 MG/0.4 ML DISP.SYRIN SUBCUT SCH (08:00)
[2016-12-25] MEDS: PANTOPRAZOLE SODIUM 40 MG VIAL IV SCH (09:56)
[2016-12-25] MEDS ORDERED: TRAMADOL HCL 50 MG TABLET PO PRN (12:48)
--- NOTE | 2016-12-25 13:10 | PDOC H&P ---
History of Present Illness Admission Date/PCP: 12/24/16 18:58 LUIS JUAREZ MD Patient complains of: chest pain History of Present Illness: 76-year-old male history of CABG, 2-3 vessel bypass who presented to the emergency department with chest pain. Patient usually treats his chest pain with nitroglycerin. Patient noted chest pain when he was walking up and down stairs. Patient took 2 nitroglycerin and the chest pain resolved. However subsequently he felt his blood pressure to be coming low therefore he came to the emergency room and was admitted for further evaluation. Patient claims he had a recent stress test just about 2 months ago at [place] which was reported to be unremarkable. Patient also gives a history of defibrillator placement. He gives history of weak heart muscles. Patient describes history of insomnia. Patient denied any recent defibrillator shocks. His last defibrillator shock was about 3 years ago when this was placed. Patient denied any recent syncope, near syncope or sustained palpitations. Past Medical History Cardiac Medical History: Reports: Coronary Artery Disease, Myocardial Infarction , Hyperlipidema, Hypertension Pulmonary Medical History: Denies: Tuberculosis Neurological Medical History: Denies: Seizures Musculoskeltal Medical History: Reports: Arthritis Past Surgical History Past Surgical History: Reports: Appendectomy, Cholecystectomy, Coronary Artery Bypass Graft, Internal Defibrillator, Orthopedic Surgery - Knee replacement Social History Smoking Status: Unknown if Ever Smoked Frequency of Alcohol Use: None Hx Recreational Drug Use: No Drugs: None Hx Prescription Drug Abuse: No - Advance Directive Resuscitation Status: Full Code Surrogate healthcare decision maker:: Marge Family History Family History: CAD - brother Parental Family History Reviewed: Yes Children Family History Reviewed: Yes Sibling(s) Family History Reviewed.: Yes Medication/Allergy Home Medications: Amlodipine Besylate [Norvasc 5 mg Tablet] 5 mg PO DAILY 12/24/16 Aspirin [Ecotrin] 325 mg PO DAILY 12/24/16 Citalopram Hydrobromide [Celexa 20 mg Tablet] 20 mg PO DAILY 12/24/16 Colchicine [Colchicine 0.6 mg Tablet] 0.6 mg PO BID 12/24/16 Fexofenadine HCl [Jacki] 180 mg PO DAILYP PRN 12/24/16 Fluticasone Propionate [Flonase Nasal [place] 50 Mcg/[place] 16 gm] 1 spray NASL QPM 12/24/16 Metoprolol Tartrate [Lopressor 100 mg Tablet] 100 mg PO Q12 12/24/16 Multivit-Min/FA/Lycopen/Lutein [Centrum Silver Men Tablet] 1 tab PO DAILY Nitroglycerin [Nitrostat 0.4 mg (1/150 Gr) Tabs 25/Bottle] 0.4 mg PO Q5MP PRN Omeprazole 20 mg PO ACBRKFST 12/24/16 Ranolazine [Ranexa] 1,000 mg PO Q12 12/24/16 Rosuvastatin Calcium [Crestor 10 mg Tablet] 10 mg PO DAILY 12/24/16 Telmisartan [Micardis 20 mg Tablet] 20 mg PO DAILY 12/24/16 Tramadol HCl [Ultram 50 mg Tablet] 50 mg PO Q6HP PRN 12/24/16 Allergies/Adverse Reactions: iodine [Iodine] Allergy (Unknown, Verified 12/24/16 17:18) Itching morphine [Morphine] Allergy (Verified 12/24/16 17:18) itching oxycodone HCl [From Percocet] Allergy (Verified 12/24/16 17:18) Hallucinations Review of Systems Constitutional: ABSENT: chills, fever(s), headache(s), weight gain, weight loss Eyes: ABSENT: visual disturbances Ears: ABSENT: hearing changes Cardiovascular: PRESENT: as per HPI, chest pain, dyspnea on exertion. ABSENT: edema, orthropnea, palpitations Respiratory: ABSENT: cough, hemoptysis Gastrointestinal: ABSENT: abdominal pain, constipation, diarrhea, hematemesis, hematochezia, nausea, vomiting Genitourinary: ABSENT: dysuria, hematuria Musculoskeletal: ABSENT: joint swelling Integumentary: ABSENT: rash, wounds Neurological: ABSENT: abnormal gait, abnormal speech, confusion, dizziness, focal weakness, syncope Psychiatric: ABSENT: anxiety, depression, homidical ideation, suicidal ideation Endocrine: ABSENT: cold intolerance, heat intolerance, polydipsia, polyuria Hematologic/Lymphatic: ABSENT: easy bleeding, easy bruising Physical Exam Vital Signs: Temp Pulse Resp BP Pulse Ox 98.2 F 70 20 120/72 100 12/25/16 11:46 12/25/16 11:46 12/25/16 11:46 12/25/16 11:46 12/25/16 11:46 Intake & Output 12/24/16 12/25/16 12/26/16 00:59 00:59 00:59 Output Total 300 250 Balance -300 -250 Weight 62.8 kg General appearance: PRESENT: no acute distress, well-developed, well-nourished Head exam: PRESENT: atraumatic, normocephalic Eye exam: PRESENT: conjunctiva pink, EOMI, PERRLA. ABSENT: scleral icterus Ear exam: PRESENT: normal external ear exam Mouth exam: PRESENT: moist, tongue midline Neck exam: ABSENT: carotid bruit, JVD, lymphadenopathy, thyromegaly Respiratory exam: PRESENT: clear to auscultation emilia. ABSENT: rales, rhonchi, wheezes Cardiovascular exam: PRESENT: RRR. ABSENT: diastolic murmur, rubs, systolic murmur Pulses: PRESENT: normal dorsalis pedis pul Vascular exam: PRESENT: normal capillary refill GI/Abdominal exam: PRESENT: normal bowel sounds, soft. ABSENT: distended, guarding, mass, organolmegaly, rebound, tenderness Rectal exam: PRESENT: deferred Extremities exam: PRESENT: full ROM. ABSENT: calf tenderness, clubbing, pedal edema Neurological exam: PRESENT: alert, awake, oriented to person, oriented to place , oriented to time, oriented to situation, CN II-XII grossly intact. ABSENT: motor sensory deficit Psychiatric exam: PRESENT: appropriate affect, normal mood. ABSENT: homicidal ideation, suicidal ideation Skin exam: PRESENT: dry, intact, warm. ABSENT: cyanosis, rash Results Laboratory Results: 12/25/16 12/25/16 04:18 04:18 Triglycerides 88 Cholesterol 145.67 LDL Cholesterol Direct 66 VLDL Cholesterol 18.0 HDL Cholesterol 55 TSH 0.83 12/24/16 12/25/16 12/25/16 22:33 04:18 10:40 Troponin I < 0.012 0.017 < 0.012 Labs- All tests 24 hr 12/24/16 12/24/16 12/24/16 17:35 17:35 17:35 WBC 3.9 L RBC 4.46 Hgb 13.6 Hct 40.5 MCV 91 MCH 30.5 MCHC 33.6 RDW 14.9 H Plt Count 190 Seg Neutrophils % 66.9 Lymphocytes % 20.5 Monocytes % 9.9 Eosinophils % 2.3 Basophils % 0.4 Absolute Neutrophils 2.6 Absolute Lymphocytes 0.8 Absolute Monocytes 0.4 Absolute Eosinophils 0.1 Absolute Basophils 0.0 Sodium 139.8 Potassium 4.7 Chloride 103 Carbon Dioxide 28 Anion Gap 9 BUN 17 Creatinine 1.25 Est GFR ( Amer) > 60 Est GFR (Non-Af Amer) 56 L Glucose 98 Hemoglobin A1c % Calcium 9.5 Total Bilirubin 0.8 Direct Bilirubin 0.1 Indirect Bilirubin Not Reportable Neonat Total Bilirubin Not Reportable AST 35 ALT 37 Alkaline Phosphatase 123 Creatine Kinase 68 CK-MB (CK-2) 0.66 Troponin I < 0.012 Total Protein 6.7 Albumin 4.1 Triglycerides Cholesterol LDL Cholesterol Direct VLDL Cholesterol HDL Cholesterol TSH 12/24/16 12/25/16 12/25/16 22:33 04:18 04:18 WBC RBC Hgb Hct MCV MCH MCHC RDW Plt Count Seg Neutrophils % Lymphocytes % Monocytes % Eosinophils % Basophils % Absolute Neutrophils Absolute Lymphocytes Absolute Monocytes Absolute Eosinophils Absolute Basophils Sodium Potassium Chloride Carbon Dioxide Anion Gap BUN Creatinine Est GFR ( Amer) Est GFR (Non-Af Amer) Glucose Hemoglobin A1c % 5.6 Calcium Total Bilirubin Direct Bilirubin Indirect Bilirubin Neonat Total Bilirubin AST ALT Alkaline Phosphatase Creatine Kinase CK-MB (CK-2) Troponin I < 0.012 0.017 Total Protein Albumin Triglycerides Cholesterol LDL Cholesterol Direct VLDL Cholesterol HDL Cholesterol TSH 12/25/16 12/25/16 12/25/16 04:18 04:18 10:40 WBC RBC Hgb Hct MCV MCH MCHC RDW Plt Count Seg Neutrophils % Lymphocytes % Monocytes % Eosinophils % Basophils % Absolute Neutrophils Absolute Lymphocytes Absolute Monocytes Absolute Eosinophils Absolute Basophils Sodium Potassium Chloride Carbon Dioxide Anion Gap BUN Creatinine Est GFR ( Amer) Est GFR (Non-Af Amer) Glucose Hemoglobin A1c % Calcium Total Bilirubin Direct Bilirubin Indirect Bilirubin Neonat Total Bilirubin AST ALT Alkaline Phosphatase Creatine Kinase CK-MB (CK-2) Troponin I < 0.012 Total Protein Albumin Triglycerides 88 Cholesterol 145.67 LDL Cholesterol Direct 66 VLDL Cholesterol 18.0 HDL Cholesterol 55 TSH 0.83 EKG Comments: [APACEC] . ATRIAL-PACED COMPLEXES [MASON] . BORDERLINE LEFT AXIS DEVIATION [T0AL] . BORDERLINE T ABNORMALITIES, ANT-LAT LEADS Impressions: Chest X-Ray 12/24/16 17:29 IMPRESSION: NO ACUTE RADIOGRAPHIC FINDING IN THE CHEST. Assessment & Plan - Diagnosis (1) Chest pain Qualifiers: Ischemic chest pain type: unspecified angina pectoris type Is this a current diagnosis for this admission?: Yes (2) CAD (coronary artery disease) Qualifiers: Coronary Disease-Associated Artery/Lesion type: unspecified vessel or lesion type [place] vs. transplanted heart: [place] heart Associated angina: without angina Qualified Code(s): I25.10 - Atherosclerotic heart disease of [place] coronary artery without angina pectoris Is this a current diagnosis for this admission?: Yes (3) Cardiac defibrillator in situ Is this a current diagnosis for this admission?: Yes (4) HTN (hypertension) Is this a current diagnosis for this admission?: Yes (5) Hyperlipidemia Is this a current diagnosis for this admission?: Yes - Time Time Spent with patient: Patient will be admitted to a telemetry unit for observation Ecotrin 325 mg by mouth daily will be ordered Cardiology consult will be obtained We will continue his home regimen Time Spent: 50 to 70 Minutes
--- NOTE | 2016-12-25 13:15 | PDOC TRANSFER SUMMARY ---
General Admission Date/PCP: 12/24/16 18:58 LUIS JUAREZ MD Admission Date: 12/24/16 Transfer Date: 12/25/16 Accepting Facility: [facility] Resuscitation Status: Full Code - Transfer Diagnosis (1) Chest pain Is this a current diagnosis for this admission?: YesDiagnosis Summary: Patient was admitted with a chest pain associated with minimal exertion His cardiac enzymes were essentially negative EKG showed ischemic changes on the anterior leads Patient is transferred for cardiac catheterization (2) CAD (coronary artery disease) Is this a current diagnosis for this admission?: Yes (3) Cardiac defibrillator in situ Is this a current diagnosis for this admission?: Yes (4) HTN (hypertension) Is this a current diagnosis for this admission?: YesDiagnosis Summary: hypertension was controlled during hospitalization Home meds were continued (5) Hyperlipidemia Is this a current diagnosis for this admission?: YesDiagnosis Summary: Lipitor was continued - Transfer Medications Home Medications: Amlodipine Besylate [Norvasc 5 mg Tablet] 5 mg PO DAILY 12/24/16 Aspirin [Ecotrin] 325 mg PO DAILY 12/24/16 Citalopram Hydrobromide [Celexa 20 mg Tablet] 20 mg PO DAILY 12/24/16 Colchicine [Colchicine 0.6 mg Tablet] 0.6 mg PO BID 12/24/16 Fexofenadine HCl [Jacki] 180 mg PO DAILYP PRN 12/24/16 Fluticasone Propionate [Flonase Nasal Seibert 50 Mcg/Seibert 16 gm] 1 spray NASL QPM 12/24/16 Metoprolol Tartrate [Lopressor 100 mg Tablet] 100 mg PO Q12 12/24/16 Multivit-Min/FA/Lycopen/Lutein [Centrum Silver Men Tablet] 1 tab PO DAILY Nitroglycerin [Nitrostat 0.4 mg (1/150 Gr) Tabs 25/Bottle] 0.4 mg PO Q5MP PRN Omeprazole 20 mg PO ACBRKFST 12/24/16 Ranolazine [Ranexa] 1,000 mg PO Q12 12/24/16 Rosuvastatin Calcium [Crestor 10 mg Tablet] 10 mg PO DAILY 12/24/16 Telmisartan [Micardis 20 mg Tablet] 20 mg PO DAILY 12/24/16 Tramadol HCl [Ultram 50 mg Tablet] 50 mg PO Q6HP PRN 12/24/16 Transfer Medications: Current Medications Citalopram Hydrobromide (Celexa 20 Mg Tablet) 20 mg PO DAILY [facility] Stop: 01/25/17 09:59 Colchicine (Colcrys 0.6 Mg Tablet) 0.6 mg PO BID [facility] Stop: 01/24/17 17:59 Enoxaparin Sodium (Lovenox Inj 40 Mg/0.4 Ml Disp.Syrin) 40 mg SUBCUT QAM [facility] Stop: 01/24/17 07:59 Last Admin: 12/25/16 09:56 Dose: 40 mg Fluticasone Propionate (Flonase Nasal Seibert 50 Mcg/Seibert 16 Gm) 1 spray NASL QPM [facility] Stop: 01/24/17 17:59 Sodium Chloride (Nacl 0.9% 1000 Ml Iv Soln) 1,000 mls @ 0 mls/hr IV .CONTINUOUS PRN PRN Reason: Wide Open Stop: 01/23/17 18:25 Last Admin: 12/24/16 19:12 Dose: 1,000 ml Sodium Chloride (Nacl 0.9% 1000 Ml Iv Soln) 1,000 mls @ 75 mls/hr IV CONTINUOUS PRN PRN Reason: THIS MED IS NOT "PRN" Stop: 01/23/17 18:56 Last Admin: 12/24/16 22:10 Dose: 1,000 ml Metoprolol Tartrate (Lopressor 100 Mg Tablet) 100 mg PO Q12 [facility] Stop: 01/24/17 21:59 Pantoprazole Sodium (Protonix Iv Inj 40 Mg Vial) 40 mg IV Q12 [facility] Stop: 12/27/16 21:59 Last Admin: 12/25/16 09:56 Dose: 40 mg Patient Own Medication (Ranolazine [Ranexa]) 1,000 mg PO Q12 [facility] Stop: 01/24/17 21:59 Patient Own Medication (Rosuvastatin Calcium [Crestor 10 Mg Tablet]) 10 mg PO DAILY [facility] Stop: 01/25/17 09:59 Patient Own Medication (Multivit-Min/Fa/Lycopen/Lutein [Centrum Silver Men Tablet]) 1 tab PO DAILY [facility] Stop: 01/25/17 09:59 Patient Own Medication (Telmisartan [Micardis 20 Mg Tablet]) 20 mg PO DAILY [facility] Stop: 01/25/17 09:59 Sodium Chloride (Saline Flush 2.5 Ml Monoject Prefil Syrin) 2.5 ml IV Q8 [facility] Stop: 01/23/17 21:59 Last Admin: 12/25/16 06:17 Dose: Not Given Tramadol HCl (Ultram 50 Mg Tablet) 50 mg PO Q6HP PRN PRN Reason: FOR PAIN Stop: 01/01/17 12:47 - Allergies Allergies/Adverse Reactions: iodine [Iodine] Allergy (Unknown, Verified 12/24/16 17:18) Itching morphine [Morphine] Allergy (Verified 12/24/16 17:18) itching oxycodone HCl [From Percocet] Allergy (Verified 12/24/16 17:18) Hallucinations - Diet/Activity Discharge Diet: Cardiac Hospital Course Hospital Course: Patient remained asymptomatic during his short stay His cardiac enzymes were essentially negative He did not have significant arrhythmia Physical Exam Vital Signs: Temp Pulse Resp BP Pulse Ox 98.2 F 70 20 120/72 100 12/25/16 11:46 12/25/16 11:46 12/25/16 11:46 12/25/16 11:46 12/25/16 11:46 Intake & Output 12/24/16 12/25/16 12/26/16 00:59 00:59 00:59 Output Total 300 250 Balance -300 -250 Weight 62.8 kg General appearance: PRESENT: no acute distress, well-developed, well-nourished Head exam: PRESENT: atraumatic, normocephalic Eye exam: PRESENT: conjunctiva pink, EOMI, PERRLA. ABSENT: scleral icterus Ear exam: PRESENT: normal external ear exam Mouth exam: PRESENT: moist, tongue midline Neck exam: ABSENT: carotid bruit, JVD, lymphadenopathy, thyromegaly Respiratory exam: PRESENT: clear to auscultation emilia. ABSENT: rales, rhonchi, wheezes Cardiovascular exam: PRESENT: RRR. ABSENT: diastolic murmur, rubs, systolic murmur Pulses: PRESENT: normal dorsalis pedis pul Vascular exam: PRESENT: normal capillary refill GI/Abdominal exam: PRESENT: normal bowel sounds, soft. ABSENT: distended, guarding, mass, organolmegaly, rebound, tenderness Rectal exam: PRESENT: deferred Extremities exam: PRESENT: full ROM. ABSENT: calf tenderness, clubbing, pedal edema Neurological exam: PRESENT: alert, awake, oriented to person, oriented to place , oriented to time, oriented to situation, CN II-XII grossly intact. ABSENT: motor sensory deficit Psychiatric exam: PRESENT: appropriate affect, normal mood. ABSENT: homicidal ideation, suicidal ideation Skin exam: PRESENT: dry, intact, warm. ABSENT: cyanosis, rash Results Laboratory Results: 12/25/16 12/25/16 04:18 04:18 Triglycerides 88 Cholesterol 145.67 LDL Cholesterol Direct 66 VLDL Cholesterol 18.0 HDL Cholesterol 55 TSH 0.83 12/24/16 12/25/16 12/25/16 22:33 04:18 10:40 Troponin I < 0.012 0.017 < 0.012 Labs- Entire Visit 12/24/16 12/24/16 12/24/16 17:35 17:35 17:35 WBC 3.9 L RBC 4.46 Hgb 13.6 Hct 40.5 MCV 91 MCH 30.5 MCHC 33.6 RDW 14.9 H Plt Count 190 Seg Neutrophils % 66.9 Lymphocytes % 20.5 Monocytes % 9.9 Eosinophils % 2.3 Basophils % 0.4 Absolute Neutrophils 2.6 Absolute Lymphocytes 0.8 Absolute Monocytes 0.4 Absolute Eosinophils 0.1 Absolute Basophils 0.0 Sodium 139.8 Potassium 4.7 Chloride 103 Carbon Dioxide 28 Anion Gap 9 BUN 17 Creatinine 1.25 Est GFR ( Amer) > 60 Est GFR (Non-Af Amer) 56 L Glucose 98 Hemoglobin A1c % Calcium 9.5 Total Bilirubin 0.8 Direct Bilirubin 0.1 Indirect Bilirubin Not Reportable Neonat Total Bilirubin Not Reportable AST 35 ALT 37 Alkaline Phosphatase 123 Creatine Kinase 68 CK-MB (CK-2) 0.66 Troponin I < 0.012 Total Protein 6.7 Albumin 4.1 Triglycerides Cholesterol LDL Cholesterol Direct VLDL Cholesterol HDL Cholesterol TSH 12/24/16 12/25/16 12/25/16 22:33 04:18 04:18 WBC RBC Hgb Hct MCV MCH MCHC RDW Plt Count Seg Neutrophils % Lymphocytes % Monocytes % Eosinophils % Basophils % Absolute Neutrophils Absolute Lymphocytes Absolute Monocytes Absolute Eosinophils Absolute Basophils Sodium Potassium Chloride Carbon Dioxide Anion Gap BUN Creatinine Est GFR ( Amer) Est GFR (Non-Af Amer) Glucose Hemoglobin A1c % 5.6 Calcium Total Bilirubin Direct Bilirubin Indirect Bilirubin Neonat Total Bilirubin AST ALT Alkaline Phosphatase Creatine Kinase CK-MB (CK-2) Troponin I < 0.012 0.017 Total Protein Albumin Triglycerides Cholesterol LDL Cholesterol Direct VLDL Cholesterol HDL Cholesterol TSH 12/25/16 12/25/16 12/25/16 04:18 04:18 10:40 WBC RBC Hgb Hct MCV MCH MCHC RDW Plt Count Seg Neutrophils % Lymphocytes % Monocytes % Eosinophils % Basophils % Absolute Neutrophils Absolute Lymphocytes Absolute Monocytes Absolute Eosinophils Absolute Basophils Sodium Potassium Chloride Carbon Dioxide Anion Gap BUN Creatinine Est GFR ( Amer) Est GFR (Non-Af Amer) Glucose Hemoglobin A1c % Calcium Total Bilirubin Direct Bilirubin Indirect Bilirubin Neonat Total Bilirubin AST ALT Alkaline Phosphatase Creatine Kinase CK-MB (CK-2) Troponin I < 0.012 Total Protein Albumin Triglycerides 88 Cholesterol 145.67 LDL Cholesterol Direct 66 VLDL Cholesterol 18.0 HDL Cholesterol 55 TSH 0.83 EKG Comments: [SR] . SINUS RHYTHM [T3AN] . ABNORMAL T, CONSIDER ISCHEMIA, ANTERIOR LEADS Impressions: Chest X-Ray 12/24/16 17:29 IMPRESSION: NO ACUTE RADIOGRAPHIC FINDING IN THE CHEST. Plan Discharge Plan: Transferred to [facility] for cardiac catheterization Time Spent: Greater than 30 Minutes
[2016-12-25] MEDS ORDERED: LOSARTAN POTASSIUM 25 MG TABLET PO ONE (15:00)
[2016-12-25] MEDS ORDERED: MULTIVITAMIN TABLET PO ONE (15:00)
[2016-12-25] MEDS ORDERED: COLCHICINE 0.6 MG TABLET PO SCH (18:00)
[2016-12-25] MEDS ORDERED: FLUTICASONE NASAL SPRAY 50 MCG/SPRY 120 SPRAY/16 GM NASL SCH (18:00)
[2016-12-25] MEDS ORDERED: RANOLAZINE 500 MG TAB.SR.12H PO SCH (18:00)
[2016-12-25 20:45] VITALS: BP 123/72
[2016-12-25] MEDS ORDERED: METOPROLOL TARTRATE 100 MG TABLET PO SCH (22:00)
[2016-12-25] MEDS ORDERED: (PENDING PHARMACY ID) (Ranolazine [Ranexa] 1,000 MG) PO SCH (22:00)
[2016-12-25] MEDS ORDERED: ATORVASTATIN CALCIUM 20 MG TABLET PO SCH (22:00)
--- NOTE | 2016-12-26 08:12 | PROGRESS NOTE E ---
Progress Note NAME: JULIANA BADILLO : 1940 AGE: 76Y DATE: 12/25/2016 ROOM: 416 SUBJECTIVE: Patient seen on 12/25/2016 from 11:40 a.m. to 12:10 p.m. Thirty minutes spent on this patient. The patient continues to have chest pain even with minimal exertion. It lasts for about 2 minutes and it is relieved with rest. He also says that the chest pain is associated with shortness of breath. There is no PND or orthopnea. There is no arrhythmia seen on the monitor. There is no firing of his AICD. There are no TIA or CVA symptoms. OBJECTIVE: GENERAL: On examination, the patient is well built and well nourished in no acute distress. VITAL SIGNS: The patient is afebrile with a temperature of 98.2 degrees Fahrenheit, pulse is 70 beats per minute, blood pressure is 120/72, respirations are 18 per minute, O2 sats are 100% on room air. HEENT: Head is atraumatic, normocephalic. Eyes: Pupils are equal, round, regular and reactive to light and accommodation. Extraocular movements are normal. There is no conjunctival pallor. There is no scleral icterus. Ears: Tympanic membranes are intact. External auditory canals are clear. Nose: There is no deviated nasal septum. There is no inflammation of the nasal mucous membranes. Mouth: Mucous membranes are moist. Tongue is moist. There are no ulcers. There is no bleeding from the gums. Throat: There is no redness of the oropharynx. There are no exudates. SKIN: There are no skin rashes. There are no skin lesions. There is no petechia or ecchymosis. NECK: Supple. There is no JVD. Carotids are equal. There is no bruit. There is no goiter. Trachea is central. LUNGS: Clear to auscultation and percussion. HEART: S1 and S2 is heard. There is no S3 gallop. There is no S4 gallop. There is systolic murmur in the left sternal border of the apex. There is no rub. ABDOMEN: Soft, nontender. There is no hepatosplenomegaly. Bowel sounds are well heard. EXTREMITIES: Femorals are slightly diminished. There is no pedal bruit. Leg pulses are diminished. There is no pedal edema. There is no DVT or cellulitis. CENTRAL NERVOUS SYSTEM: The patient is conscious, awake, alert, oriented x3 with no focal deficits. PSYCHIATRIC: The patient's judgment and insight are intact. His affect seems to be flat. LABORATORY DATA: The patient's EKG shows atrial paced complex ventriculare capture and intermittent sinus rhythm. Borderline left axis deviation. There is artifact in the anterior leads. The patient's total intake and out put is not accurate. Note that the patient's troponin I is negative at less than 0.12. His TSH is 0.83. His triglycerides are 88. His total cholesterol is 1.67. His LDL cholesterol is 66. His HDL cholesterol is 55. IMPRESSION: 1. EXRTIONAL ANGINA: CHEST PAIN IN PATIENT, CAD AND HISTORY OF CABG. . Will transfer patient to [facility] for cardiac catheterization. The risks, benefits, alternatives of cardiac catheterization have been discussed with the patient. The patient willing to be transferred. Arrangements are being made to transfer patient to [facility]. 2. CORONARY ARTERY DISEASE. Patient with anginal symptoms minimal exertion. 3. HYPERTENSION. Well controlled. 4. HYPERLIPIDEMIA. 5. AICD PLACEMENT.NO DISCHARGE. RECOMMENDATIONS: Continue beta emigdio, Ranexa and ARB,ASPIRIN,AMLODIPINE. Patient status post CABG. Patient will need cardiac catheterization to be sure that he has no stenosis with his grafts or afognak vessels Discussed with the patient. Note that the patient is a FULL CODE. His is the surrogate healthcare decision maker. Note 30 minutes spent on this patient with more than 50% of the time spent on direct patient care and also discussion of cardiac catheterization. Medications have been reviewed and also discussed with Dr. Morataya, the hospitalist taking care of the patient. The patient being transferred, hence will sign off the case. DICTATING PHYSICIAN: MARTHA CHAMPION M.D. [id number] PHY#: [id number] ID: [id number] JOB#: [id number] ACCT: [id number] cc: > [facility]
[2016-12-26] MEDS ORDERED: (PENDING PHARMACY ID) (Telmisartan [Micardis 20 Mg Tablet] 20 MG) PO SCH (10:00)
[2016-12-26] MEDS ORDERED: CITALOPRAM HYDROBROMIDE 20 MG TABLET PO SCH (10:00)
[2016-12-26] MEDS ORDERED: (PENDING PHARMACY ID) (Multivit-Min/Fa/Lycopen/Lutein [Centrum Silver Men Tablet] 1 TAB) PO SCH (10:00)
[2016-12-26] MEDS ORDERED: MULTIVITAMIN TABLET PO SCH (10:00)
[2016-12-26] MEDS ORDERED: LOSARTAN POTASSIUM 25 MG TABLET PO SCH (10:00)
--- NOTE | 2016-12-27 10:29 | EKG REPORT ---
SEVERITY:- BORDERLINE ECG - SINUS RHYTHM PROBABLE LEFT ATRIAL ABNORMALITY BORDERLINE T ABNORMALITIES, ANTERIOR LEADS : Confirmed on behalf of: Leroy Peña 27-Dec-2016 10:28:27
== END 2016-12-25 20:30 | disposition other institution (70) ==
LOC: ER 16:13 → EH 18:58 → UNDOADMOB 19:12 → EH 19:12 → 4W 12-25 02:55
PROVIDERS: ADMIT Internal Medicine; ATTEND Internal Medicine
DX: R07.9 Chest pain, unspecified (principal); I25.110 Atherosclerotic heart disease of native coronary artery with unstable angina pectoris; I10 Essential (primary) hypertension; Z95.810 Presence of automatic (implantable) cardiac defibrillator; E78.5 Hyperlipidemia, unspecified; R94.31 Abnormal electrocardiogram [ECG] [EKG]; I25.2 Old myocardial infarction; R01.1 Cardiac murmur, unspecified; M19.90 Unspecified osteoarthritis, unspecified site; Z79.82 Long term (current) use of aspirin; Z79.891 Long term (current) use of opiate analgesic; Z79.899 Other long term (current) drug therapy; Z95.1 Presence of aortocoronary bypass graft; Z90.49 Acquired absence of other specified parts of digestive tract; Z87.891 Personal history of nicotine dependence; Z82.49 Family history of ischemic heart disease and other diseases of the circulatory system
CPT/HCPCS: 93005 ×2; 99285; 96372; 96361; 96374; 36415 ×2; 82553; 82550; 84443; 85025; 80053; 84484 ×2; 83036; 80061; 71010; 93010 ×2; G0378 ×3; A9270 ×7; J1650 ×2; C9113 ×2; J3490 ×2; J7030; S0119; S0164

== ENCOUNTER 2017-03-19 19:30 | Emergency (ER) | payer MEDICARE, OTHER ==
[2017-03-19] MEDS ORDERED: NORMAL SALINE 1000 ML 1,000 ML IV PRN (20:11)
[2017-03-19] MEDS ORDERED: ONDANSETRON HCL INJ/PF 4 MG/2 ML SDV IV ONE (20:11)
--- NOTE | 2017-03-19 20:13 | ER Document Report ---
ED Medical Screen (RME) - General Chief Complaint: Nausea/Vomiting/Diarrhea Stated Complaint: NASUEA AND VOMITING Time Seen by Provider: 03/19/17 20:10 Notes: Patient presents with 4 days of intermittent abdominal pain vomiting and diarrhea. He states the pain is in the bilateral lower quadrants. He denies any new problems with urination. No fevers. He denies any previous abdominal surgeries. He states he has had this once previously and believes it was just "the stomach flu". TRAVEL OUTSIDE OF THE [place] IN LAST 30 DAYS: No - Related Data Allergies/Adverse Reactions: iodine [Iodine] Allergy (Unknown, Verified 03/19/17 19:32) Itching morphine [Morphine] Allergy (Verified 03/19/17 19:32) itching oxycodone HCl [From Percocet] Allergy (Verified 03/19/17 19:32) Hallucinations Past Medical History - Past Medical History Cardiac Medical History: Reports: Hx Coronary Artery Disease, Hx Hypercholesterolemia, Hx Hypertension Denies: Hx Heart Attack Pulmonary Medical History: Denies: Hx Tuberculosis Neurological Medical History: Denies: Hx Seizures Renal/ Medical History: Denies: Hx Peritoneal Dialysis Musculoskeltal Medical History: Reports Hx Arthritis Past Surgical History: Reports: Hx Appendectomy, Hx Cardiac Catheterization, Hx Cardiac Surgery - Pacemaker, Hx Cholecystectomy, Hx Coronary Artery Bypass Graft , Hx Internal Defibrillator, Hx Open Heart Surgery - CABG April, Hx Orthopedic Surgery - Knee replacement - Immunizations Immunizations up to date: Yes Hx Diphtheria, Pertussis, Tetanus Vaccination: Yes Physical Exam - Vital signs Vitals: Temp Pulse Resp BP Pulse Ox 97.8 F 82 16 127/78 H 97 03/19/17 19:35 03/19/17 19:35 03/19/17 19:35 03/19/17 19:35 03/19/17 19:35 Course - Vital Signs Vital signs: Temp Pulse Resp BP Pulse Ox 97.8 F 82 16 127/78 H 97 03/19/17 19:35 03/19/17 19:35 03/19/17 19:35 03/19/17 19:35 03/19/17 19:35
[2017-03-19 20:45] LABS: ABSOLUTE LYMPHOCYTES (AUTO) 0.8 10^3/uL (0.5-4.7); ABSOLUTE MONOCYTES (AUTO) 0.3 10^3/uL (0.1-1.4); BASOPHILS % (AUTO) 0.5 % (0-2); EOSINOPHILS % (AUTO) 1.3 % (0-6); HEMOGLOBIN 14.4 g/dL (13.5-17.0); HGB HCT DIFFERENCE -0.8; MEAN CORPUSCULAR HEMOGLOBIN 30.1 pg (27.0-33.4); MEAN CORPUSCULAR HGB CONC 32.8 g/dL (32.0-36.0); MEAN CORPUSCULAR VOLUME 92 fl (80-97); MONOCYTES % (AUTO) 9.6 % (3-13); RED BLOOD COUNT 4.79 10^6/uL (4.35-5.55); RED CELL DISTRIBUTION WIDTH 14.5 % (11.5-14.0); SEGMENTED NEUTROPHILS % (AUTO) 63.6 % (42-78); WHITE BLOOD COUNT 3.1 10^3/uL (4.0-10.5)
--- NOTE | 2017-03-19 20:57 | ER Document Report ---
ED GI/ - General Chief Complaint: Nausea/Vomiting/Diarrhea Stated Complaint: NASUEA AND VOMITING Time Seen by Provider: 03/19/17 20:10 Mode of Arrival: Ambulatory Information source: Patient TRAVEL OUTSIDE OF THE [place] IN LAST 30 DAYS: No - HPI Notes: 03/19/17 20:52 This is a 68-year-old male who presents with epigastric pain of 4 days duration. It is more central and not unilateral though appears to be across the entire upper abdomen. He denies any lower abdominal pain. He has had vomiting and diarrhea during this 4 days, now is just dry heaving still having some loose stools every hour. Denies hematuria, hematemesis, melena or hematochezia. Denies urinary issues fever. He has had multiple surgeries in the past including cholecystectomy, appendectomy and prostate surgery for prostate cancer. He has had inguinal herniorrhaphy as well. Denies cough or cold symptoms. Denies chest pain. Does admit to coronary artery bypass grafting distantly. On review of systems he admits to unintentional weight loss. - Related Data Allergies/Adverse Reactions: iodine [Iodine] Allergy (Unknown, Verified 03/19/17 19:32) Itching morphine [Morphine] Allergy (Verified 03/19/17 19:32) itching oxycodone HCl [From Percocet] Allergy (Verified 03/19/17 19:32) Hallucinations Past Medical History - Social History Smoking Status: Former Smoker Family History: CAD - brother Patient has suicidal ideation: No Patient has homicidal ideation: No - Past Medical History Cardiac Medical History: Reports: Hx Coronary Artery Disease, Hx Hypercholesterolemia, Hx Hypertension Denies: Hx Heart Attack Pulmonary Medical History: Denies: Hx Tuberculosis Neurological Medical History: Denies: Hx Seizures Renal/ Medical History: Denies: Hx Peritoneal Dialysis Musculoskeltal Medical History: Reports Hx Arthritis Past Surgical History: Reports: Hx Appendectomy, Hx Cardiac Catheterization, Hx Cardiac Surgery - Pacemaker, Hx Cholecystectomy, Hx Coronary Artery Bypass Graft , Hx Internal Defibrillator, Hx Open Heart Surgery - CABG April, Hx Orthopedic Surgery - Knee replacement - Immunizations Immunizations up to date: Yes Hx Diphtheria, Pertussis, Tetanus Vaccination: Yes Hx Pneumococcal Vaccination: 10/02/16 Review of Systems - Review of Systems -: Yes All other systems reviewed and negative Physical Exam - Vital signs Vitals: Temp Pulse Resp BP Pulse Ox 97.8 F 82 16 127/78 H 97 03/19/17 19:35 03/19/17 19:35 03/19/17 19:35 03/19/17 19:35 03/19/17 19:35 Interpretation: Normal - Notes Notes: GENERAL: VS as per nursing doc. Well-appearing, well-nourished and in no acute distress. HEAD: Atraumatic, normocephalic. EYES: Pupils equal round and reactive to light, extraocular movements intact, sclera anicteric, no conjunctival injection or discharge. ENT: Nares patent, oropharynx clear without exudates, moist mucous membranes. NECK: Normal range of motion, supple without lymphadenopathy. LUNGS: Breath sounds clear to auscultation bilaterally and equal. No wheezes rales or rhonchi. HEART: Regular rate and rhythm without murmurs. ABDOMEN: Soft, very mild epigastric tenderness,, normoactive bowel sounds. No guarding, no rebound. No masses appreciated. BACK: No CVA tenderness. EXTREMITIES: Normal range of motion, no calf tenderness, no edema. NEUROLOGICAL: Normal speech. Normal sensory and motor exams. PSYCH: Normal mood, normal affect. SKIN: Warm, dry, normal turgor, no lesions noted. Course - Re-evaluation Re-evalutation: 03/19/17 22:[address] findings with the patient which suggested probable distal impaction, obviously would have to be partially see if he is having some loose stool around it. I performed a rectal exam which was heme negative. I did not note any stool on digital examination. Discussed with him this is a consideration. He wants to follow-up with GI. Discussed with him there is some narrowing of the colon distally and I questioned whether that was causing CT findings. His symptoms have resolved at this point and he will call in the morning to arrange follow-up. - Vital Signs Vital signs: Temp Pulse Resp BP Pulse Ox 97.8 F 71 16 120/74 98 03/19/17 19:35 03/19/17 20:56 03/19/17 20:56 03/19/17 20:56 03/19/17 20:56 - Laboratory Result Diagrams: 03/19/17 20:32 03/19/17 20:32 Laboratory results interpreted by me: 03/19/17 03/19/17 03/19/17 20:32 20:32 22:07 WBC 3.1 L RDW 14.5 H Alkaline Phosphatase 191 H Urine Ketones TRACE H Ur Leukocyte Esterase TRACE H Discharge - Discharge Clinical Impression: Vomiting, Abdominal pain, Diarrhea Condition: Good Disposition: HOME, SELF-CARE Instructions: Abdominal Pain ([facility]) Additional Instructions: It is imperative that you get follow-up with gastroenterology as you will likely need a. Please call them first thing in the morning. Use the Zofran for nausea and return if you are worsening otherwise at all. Prescriptions: Ondansetron [Zofran Odt 4 mg Tablet] 1 - 2 tab PO Q4H PRN #15 tab.rapdis PRN Reason: For Nausea/Vomiting Referrals: ERASTO MATOS DO [Primary Care Provider] - Follow up as needed RACHEL CARRASCO MD [ACTIVE STAFF] - Follow up tomorrow
[2017-03-19 21:07] LABS: BLOOD UREA NITROGEN 17 mg/dL (7-20); CALCIUM 9.5 mg/dL (8.4-10.2); CREATININE RESULT 1.13 mg/dL (0.52-1.25); GLUCOSE 104 mg/dL (75-110)
[2017-03-19 21:08] LABS: ALANINE AMINOTRANSFERASE 52 U/L (21-72); ALBUMIN 4.6 g/dL (3.5-5.0); ALKALINE PHOSPHATASE 191 U/L (38-126); ANION GAP 15 (5-19); ASPARTATE AMINO TRANSFERASE 50 U/L (17-59); BILIRUBIN,DIRECT 0.3 mg/dL (0.0-0.4); BILIRUBIN,TOTAL 0.7 mg/dL (0.2-1.3); CARBON DIOXIDE 26 mmol/L (22-30); CHLORIDE 99 mmol/L (98-107); LIPASE 155.1 U/L (23-300); SODIUM 139.6 mmol/L (137-145); TOTAL PROTEIN 7.8 g/dL (6.3-8.2)
[2017-03-19 21:19] LABS: CREATINE KINASE MB 1.04 ng/mL (<4.55)
[2017-03-19 21:20] LABS: TROPONIN I < 0.012 ng/mL
--- NOTE | 2017-03-19 22:03 | RADIOLOGY REPORT (SQ) ---
EXAM DESCRIPTION: CT ABD/PELVIS NO ORAL OR IV COMPLETED DATE/TIME: 03/19/2017 9:26 pm REASON FOR STUDY: bilat lq pain/vomit/diarrhea COMPARISON: 05/23/2015 TECHNIQUE: CT scan of the abdomen and pelvis performed without intravenous or oral contrast. Images reviewed with lung, soft tissue, and bone windows. Reconstructed coronal and sagittal MPR images revi ewed. All images stored on PACS. All CT scanners at this facility use dose modulation, iterative reconstruction, and/or weight based d osing when appropriate to reduce radiation dose to as low as reasonably achievable (ALARA). [facility]: Dose Right [facility]: CareDose [facility]: Dose Right [facility]: Teradose 4D [facility]: Smart Springest RADIATION DOSE: Up-to-date CT equipment and radiation dose reduction techniques were employed. CTDIv ol: 4.9 mGy. DLP: 250 mGy-cm.mGy. LIMITATIONS: None. FINDINGS: LOWER CHEST: 9 mm nodule seen in the right lower lobe adjacent to the pleural. No focal i nfiltrates. No pleural pericardial effusion. Small hiatus hernia. NON-CONTRASTED LIVER, SPLEEN, ADRENALS: Evaluation limited by lack of IV contrast. 1 cm Right hepati c cyst. No identified significant masses. PANCREAS: No masses. No peripancreatic inflammatory changes. GALLBLADDER: Surgically absent. RIGHT KIDNEY AND URETER: No suspicious masses. Assessment limited by lack of IV contrast. Large luis l cysts seen inferiorly. Stable 9 mm calcification seen adjacent this these could represent calcific ations within in the parenchyma/ wall of the cyst versus renal calculi. In the cyst not changed sinc e 2014. No hydronephrosis or hydroureter. LEFT KIDNEY AND URETER: No suspicious masses. Assessment limited by lack of IV contrast. Multiple re nal cysts. No significant calcifications. No hydronephrosis or hydroureter. AORTA AND RETROPERITONEUM: No aneurysm. No retroperitoneal masses or adenopathy. BOWEL AND PERITONEAL CAVITY: Scattered colonic diverticulosis. No mass lesions. No inflammatory stephanie nges. Moderate to large colonic stool burden with the majority of the stool seen within the sigmoid and rectum. APPENDIX: Not visualized. PELVIS, BLADDER, AND ABDOMINAL WALL:No abnormal masses. No free fluid. Bladder normal. BONES: Multilevel degenerative changes of the spine. No acute osseous abnormality. OTHER: No other significant finding. IMPRESSION: 1. No acute abnormality identified within the in the abdomen pelvis on this noncontrast study. 2. Small hiatus hernia. 3. Renal and hepatic cysts. 4. Moderate to large colonic stool burden with the majority of the stool seen within the wall rectum and distal sigmoid. Scattered colonic diverticulosis without evidence of acute inflammation pre TECHNICAL DOCUMENTATION: JOB ID: [id number] Quality ID # [id number]: Final reports with documentation of one or more dose reduction techniques (e.g., Au tomated exposure control, adjustment of the mA and/or kV according to patient size, use of iterative reconstruction technique) 2010 [employer]- All Rights Reserved
[2017-03-19 22:57] LABS: APPEARANCE,URINE CLEAR; BILIRUBIN,URINE NEGATIVE (NEGATIVE); GLUCOSE, URINE NEGATIVE (NEGATIVE); KETONES,URINE TRACE mg/dL (NEGATIVE); LEUKOCYTE ESTERASE,URINE TRACE (NEGATIVE); NITRITE,URINE NEGATIVE (NEGATIVE); PROTEIN,URINE NEGATIVE (NEGATIVE); URINE SPECIFIC GRAVITY 1.013; UROBILINOGEN,URINE NEGATIVE mg/dL (<2.0)
[2017-03-19 23:15] VITALS: BP 124/82
--- NOTE | 2017-03-21 06:04 | EKG REPORT ---
SEVERITY:- ABNORMAL ECG - ATRIAL-PACED COMPLEXES PROBABLE LEFT ATRIAL ABNORMALITY BORDERLINE LEFT AXIS DEVIATION NONSPECIFIC T ABNORMALITIES, ANTERIOR LEADS : Confirmed by: Ankita Lo MD 21-Mar-2017 06:03:42
== END 2017-03-19 23:15 | disposition home or self-care (01) ==
LOC: ER 19:30
DX: R11.10 Vomiting, unspecified (principal); R19.7 Diarrhea, unspecified; R10.9 Unspecified abdominal pain; I25.10 Atherosclerotic heart disease of native coronary artery without angina pectoris; E78.00 Pure hypercholesterolemia, unspecified; Z88.6 Allergy status to analgesic agent; Z85.46 Personal history of malignant neoplasm of prostate; Z95.1 Presence of aortocoronary bypass graft; Z95.810 Presence of automatic (implantable) cardiac defibrillator; Z90.49 Acquired absence of other specified parts of digestive tract; Z96.659 Presence of unspecified artificial knee joint
CPT/HCPCS: 93005; 99284; 96361; 96374; 36415; 82553; 82550; 83690; 85025; 80053; 81001; 84484; 74176; 93010; J2405; J7030

== ENCOUNTER 2017-08-14 09:05 | Emergency (ER) | payer MEDICARE, OTHER ==
[2017-08-14 09:14] VITALS: BP 146/81
[2017-08-14 10:00] LABS: ABSOLUTE EOSINOPHILS # (AUTO) 0.1 10^3/uL (0.0-0.6); ABSOLUTE LYMPHOCYTES (AUTO) 0.5 10^3/uL (0.5-4.7); ABSOLUTE MONOCYTES (AUTO) 0.2 10^3/uL (0.1-1.4); ABSOLUTE NEUT (AUTO) 2.6 10^3/uL (1.7-8.2); BASOPHILS % (AUTO) 0.4 % (0-2); EOSINOPHILS % (AUTO) 1.9 % (0-6); HEMATOCRIT 37.6 % (37.9-51.0); HEMOGLOBIN 12.6 g/dL (13.5-17.0); HGB HCT DIFFERENCE 0.2; LYMPHOCYTES % (AUTO) 14.8 % (13-45); MEAN CORPUSCULAR HEMOGLOBIN 30.3 pg (27.0-33.4); MEAN CORPUSCULAR HGB CONC 33.5 g/dL (32.0-36.0); MEAN CORPUSCULAR VOLUME 90 fl (80-97); MONOCYTES % (AUTO) 7.3 % (3-13); RED BLOOD COUNT 4.16 10^6/uL (4.35-5.55); RED CELL DISTRIBUTION WIDTH 14.4 % (11.5-14.0); SEGMENTED NEUTROPHILS % (AUTO) 75.6 % (42-78); WHITE BLOOD COUNT 3.4 10^3/uL (4.0-10.5)
[2017-08-14 10:09] LABS: ALANINE AMINOTRANSFERASE 47 U/L (21-72); ALBUMIN 3.9 g/dL (3.5-5.0); ALKALINE PHOSPHATASE 155 U/L (38-126); ANION GAP 12 (5-19); ASPARTATE AMINO TRANSFERASE 28 U/L (17-59); BILIRUBIN,DIRECT 0.2 mg/dL (0.0-0.4); BILIRUBIN,TOTAL 0.3 mg/dL (0.2-1.3); BLOOD UREA NITROGEN 12 mg/dL (7-20); CARBON DIOXIDE 26 mmol/L (22-30); CHLORIDE 100 mmol/L (98-107); CREATININE RESULT 0.93 mg/dL (0.52-1.25); GLUCOSE 120 mg/dL (75-110); LIPASE 180.1 U/L (23-300); POTASSIUM 3.7 mmol/L (3.6-5.0); SODIUM 138.2 mmol/L (137-145); TOTAL PROTEIN 6.4 g/dL (6.3-8.2)
--- NOTE | 2017-08-14 11:06 | ER Document Report ---
ED GI/ - General Chief Complaint: Constipation Stated Complaint: ABDOMINAL PAIN Time Seen by Provider: 08/14/17 10:50 Notes: As I entered the patient's examining room, the first thing he said is that he had "passed about everything out now" while waiting to be seen. He says it he had had a bowel movement for a couple of days and felt he needed to go, but could not do so at home. He had noted a small amount of blood during straining to have a bowel movement. However, while waiting here, he went to the bathroom and says he had an extremely large amount of bowel movement with no blood noted. Patient says he feels fine now and does not have any problems and wants to go home. Denies any vomiting or diarrhea. Denies any fever. PMH: Appendectomy. TRAVEL OUTSIDE OF THE [place] IN LAST 30 DAYS: No - Related Data Allergies/Adverse Reactions: iodine [Iodine] Allergy (Unknown, Verified 03/19/17 19:32) Itching morphine [Morphine] Allergy (Verified 03/19/17 19:32) itching oxycodone HCl [From Percocet] Allergy (Verified 03/19/17 19:32) Hallucinations Past Medical History - Social History Smoking Status: Never Smoker Chew tobacco use (# tins/day): No Frequency of alcohol use: Rare Family History: Reviewed & Not Pertinent, CAD - brother Patient has suicidal ideation: No Patient has homicidal ideation: No - Past Medical History Cardiac Medical History: Reports: Hx Coronary Artery Disease, Hx Hypercholesterolemia, Hx Hypertension Denies: Hx Heart Attack Pulmonary Medical History: Denies: Hx Tuberculosis GI Medical History: Reports: None Musculoskeltal Medical History: Reports Hx Arthritis Past Surgical History: Reports: Hx Appendectomy, Hx Cardiac Catheterization, Hx Cardiac Surgery - Pacemaker, Hx Cholecystectomy, Hx Coronary Artery Bypass Graft , Hx Internal Defibrillator, Hx Open Heart Surgery - CABG April, Hx Orthopedic Surgery - Knee replacement - Immunizations Immunizations up to date: Yes Hx Diphtheria, Pertussis, Tetanus Vaccination: Yes Hx Pneumococcal Vaccination: 10/02/16 Review of Systems - Review of Systems Notes: REVIEW OF SYSTEMS: CONSTITUTIONAL : Denies fever. EENT: Denies eye, ear, nose or mouth or throat pain or other symptoms. CARDIOVASCULAR: Denies chest pain. RESPIRATORY: Denies cough, chest congestion, or shortness of breath. GASTROINTESTINAL: See HPI. GENITOURINARY: Denies difficulty or painful urinating, urinary frequency, blood in urine. MUSCULOSKELETAL: Denies back or neck pain. Denies joint pain or swelling. SKIN: Denies rash or skin lesions. NEUROLOGICAL: Denies LOC or altered mental status. Denies headache. Denies sensory loss or motor deficits. ALL OTHER SYSTEMS REVIEWED AND NEGATIVE. Physical Exam - Vital signs Vitals: Temp Pulse Resp BP Pulse Ox 97.4 F 81 16 146/81 H 99 08/14/17 09:11 08/14/17 09:11 08/14/17 09:11 08/14/17 09:11 08/14/17 09:11 Interpretation: Normal - Notes Notes: PHYSICAL EXAMINATION: GENERAL: Well-appearing, in no acute distress. NECK: Normal range of motion, supple. LUNGS: Breath sounds clear and equal bilaterally. HEART: Regular rate and rhythm without murmurs. ABDOMEN: Soft, nontender. No guarding or rebound. BACK: No tenderness throughout entire back. EXTREMITIES: Normal range of motion without pain. NEUROLOGICAL: Normal speech, normal gait. Normal sensory, motor, and reflex exams. Awake, alert, and oriented x3. Cranial nerves normal. SKIN: Warm, dry, no rashes. Course - Vital Signs Vital signs: Temp Pulse Resp BP Pulse Ox 97.4 F 81 16 146/81 H 99 08/14/17 09:11 08/14/17 09:11 08/14/17 09:11 08/14/17 09:11 08/14/17 09:11 - Laboratory Result Diagrams: 08/14/17 09:15 08/14/17 09:15 Laboratory results interpreted by me: 08/14/17 08/14/17 09:15 09:15 WBC 3.4 L RBC 4.16 L Hgb 12.6 L Hct 37.6 L RDW 14.4 H Plt Count 145 L Glucose 120 H Alkaline Phosphatase 155 H Discharge - Discharge Clinical Impression: Abdominal pain, Constipation Condition: Stable Disposition: HOME, SELF-CARE Additional Instructions: ABDOMINAL PAIN: There are many causes of abdominal pain. Pain can mean a serious problem requiring surgery (such as appendicitis). It can also be an innocent problem that goes away on its own (such as a viral infection). Often, time must pass to determine the cause of pain. The physician does not feel that hospitalization is necessary, at present. Things may change within the next 24 hours. Call the doctor or come back for re- examination if any problems occur, such as: (1) Pain that becomes more severe, steady, or becomes concentrated in one specific area. Also, pain that is more severe with movement or coughing. (2) Vomiting that persists or becomes more frequent. (3) Blood in the vomitus, urine, or bowel movements. Blood in the stool may have a tarry or black appearance. (4) Shaking chills or fever greater than 100 degrees F. (5) The abdomen becomes more distended or swollen. (6) Bowel movements cease. (7) Failure to improve as expected. NORMAL EXAM AND WORKUP: At this time, your examination and workup show no significant abnormality. No significant abnormal physical findings are noted. All laboratory, EKG, and imaging (x-ray, CT scans, ultrasound) studies that were ordered show no significant abnormality. Although your examination and all studies that were ordered showed no significant abnormal finding, there are no examinations and no studies that are 100% accurate. There is always the possibility that some abnormality could exist and not be detected with physical examination or within the limits and capabilities of laboratory and other studies. You should return or follow up as you were instructed on your visit today for further evaluation if your symptoms do not resolve. CONSTIPATION: Constipation is a common problem. It is especially likely as you get older. Constipation is a common cause of abdominal pain, but sometimes causes no symptoms at all. Causes of constipation include certain medications, dehydration, diets, inactivity, and low-fiber intake. Rarely, it can be a symptom of underlying disease. The physician has evaluated you for this. Avoid constipation by eating a diet high in fiber, fruits, and vegetables. Drink plenty of liquids. Get regular exercise. If possible, avoid constipating medicines like narcotic pain medication. Some vitamin tablets can cause constipation. Stool softeners may be needed for difficult cases. An excellent stool softener is Konsyl which is available at [employer] [employer] drug store. Just add a teaspoon to a glass of pineapple or orange juice daily or twice a day if needed. Laxatives are useful for occasional constipation. You should use them only when necessary. Too-frequent use can make your bowels dependent on them. Some over the counter laxatives available without prescription are: Milk of Magnesia, 1-2 tablespoons twice a day Dulcolax, 5 mg pill or 10 mg suppository. Citrate of Magnesia, 4-5 ounces a day for a day or two For acute constipation, Fleet's Enemas and Dulcolax suppositories are helpful. Chronic, [facility] use of laxatives or enemas is not a good idea. Your bowel may become dependant on them. You do not need to have a bowel movement every day. Many people do fine with a bowel movement every three or four days. You should call your doctor or return for re-evaluation if you pass blood in the stool, or if you develop fever or increasing abdominal pain. BULK LAXATIVES: Bulk laxatives make the stool softer and bulkier. They're useful for preventing constipation. You can choose between psyllium, methylcellulose, and polycarbophil. They are available without a prescription. Psyllium brand names include Konsyl, Metamucil, Perdiem, Effer-Syllium and Hydrocil. It's available as powder, flavored drink powder, or chewable. The usual dose of psyllium powder is one heaping teaspoon in water each morning, increasing to twice a day if needed. Douglas juice can disguise the slightly grainy texture. Methylcellulose is marketed as Citrucel and other brands. The average dose is two grams in a cup of water one to three times a day. Polycarbophil is marketed as Fiber-Con. Take two tablets with a cup of water one to three times a day. FOLLOW-UP CARE: If you have been referred to a physician for follow-up care, call the physician s office for an appointment as you were instructed or within the next two days. If you experience worsening or a significant change in your symptoms, notify the physician immediately or return to the Emergency Department at any time for re-evaluation. Follow-up with your Dr. Segovia in [place].
== END 2017-08-14 11:11 | disposition home or self-care (01) ==
LOC: ER 09:05
DX: K59.00 Constipation, unspecified (principal); R10.9 Unspecified abdominal pain; I25.10 Atherosclerotic heart disease of native coronary artery without angina pectoris; I10 Essential (primary) hypertension; Z95.1 Presence of aortocoronary bypass graft; Z95.810 Presence of automatic (implantable) cardiac defibrillator; Z88.5 Allergy status to narcotic agent
CPT/HCPCS: 36415; 80053; 83690; 85025; 99283

== ENCOUNTER 2018-02-24 13:22 | Emergency (ER) | payer MEDICARE, OTHER ==
--- NOTE | 2018-02-24 14:28 | ER Document Report ---
ED Medical Screen (RME) - General Chief Complaint: Abdominal Pain Stated Complaint: STOMACH PAIN Time Seen by Provider: 02/24/18 14:22 Notes: RAPID MEDICAL EVALUATION DISCLOSURE I have seen this patient as part of a Rapid Medical Evaluation and, if applicable, placed any initially appropriate orders. The patient will be seen and fully evaluated, including a full history and physical exam, by a provider ( in Main ED or Fast Track) when a room becomes available. 77-year-old male [facility] CAD here with complaints of epigastric abdominal pain ongoing for the past few days. He has had associated nausea but no vomiting or diarrhea. Pain is not worse with eating or anything else in particular that he has noticed. He has tried tramadol with some relief. The pain persists so he came here for further evaluation. Of note, the patient is also having chest tightness and shortness of breath but states that he usually has these 2 symptoms at baseline and that it is unchanged at this time. EXAM CTAB RRR Mild epigastric TTP Minimal LUQ TTP TRAVEL OUTSIDE OF THE [place] IN LAST 30 DAYS: No - Related Data Allergies/Adverse Reactions: iodine [Iodine] Allergy (Unknown, Verified 02/24/18 13:33) Itching morphine [Morphine] Allergy (Verified 02/24/18 13:33) itching oxycodone HCl [From Percocet] Allergy (Verified 02/24/18 13:33) Hallucinations Past Medical History - Social History Chew tobacco use (# tins/day): No Frequency of alcohol use: Occasional Drug Abuse: None - Past Medical History Cardiac Medical History: Reports: Hx Coronary Artery Disease, Hx Hypercholesterolemia, Hx Hypertension Denies: Hx Heart Attack Pulmonary Medical History: Denies: Hx Tuberculosis Neurological Medical History: Denies: Hx Seizures Renal/ Medical History: Denies: Hx Peritoneal Dialysis Musculoskeltal Medical History: Reports Hx Arthritis Past Surgical History: Reports: Hx Appendectomy, Hx Cardiac Catheterization, Hx Cardiac Surgery - Pacemaker, Hx Cholecystectomy, Hx Coronary Artery Bypass Graft , Hx Internal Defibrillator, Hx Open Heart Surgery - CABG April 2015, Hx Orthopedic Surgery - Knee replacement - Immunizations Immunizations up to date: Yes Hx Diphtheria, Pertussis, Tetanus Vaccination: Yes Physical Exam - Vital signs Vitals: Temp Pulse Resp BP Pulse Ox 98.8 F 80 18 101/68 97 02/24/18 13:28 02/24/18 13:28 02/24/18 13:28 02/24/18 13:28 02/24/18 13:28 Course - Vital Signs Vital signs: Temp Pulse Resp BP Pulse Ox 98.8 F 80 18 101/68 97 02/24/18 13:28 02/24/18 13:28 02/24/18 13:28 02/24/18 13:28 02/24/18 13:28
[2018-02-24 14:58] LABS: ABSOLUTE EOSINOPHILS # (AUTO) 0.1 10^3/uL (0.0-0.6); ABSOLUTE LYMPHOCYTES (AUTO) 0.7 10^3/uL (0.5-4.7); ABSOLUTE MONOCYTES (AUTO) 0.4 10^3/uL (0.1-1.4); BASOPHILS % (AUTO) 0.5 % (0-2); EOSINOPHILS % (AUTO) 2.6 % (0-6); HEMATOCRIT 39.3 % (37.9-51.0); HEMOGLOBIN 13.2 g/dL (13.5-17.0); LYMPHOCYTES % (AUTO) 23.4 % (13-45); MEAN CORPUSCULAR HEMOGLOBIN 30.6 pg (27.0-33.4); MEAN CORPUSCULAR HGB CONC 33.6 g/dL (32.0-36.0); MEAN CORPUSCULAR VOLUME 91 fl (80-97); MONOCYTES % (AUTO) 11.6 % (3-13); PLATELET COUNT 161 10^3/uL (150-450); RED BLOOD COUNT 4.31 10^6/uL (4.35-5.55); RED CELL DISTRIBUTION WIDTH 14.5 % (11.5-14.0); SEGMENTED NEUTROPHILS % (AUTO) 61.9 % (42-78); TOTAL CELLS COUNTED % (AUTO) 100 %; WHITE BLOOD COUNT 3.2 10^3/uL (4.0-10.5)
--- NOTE | 2018-02-24 15:14 | RADIOLOGY REPORT (SQ) ---
EXAM DESCRIPTION: ACUTE ABDOMEN SERIES COMPLETED DATE/TIME: 02/24/2018 2:55 pm REASON FOR STUDY: CP SOB abd pain COMPARISON: None. NUMBER OF VIEWS: Three views. TECHNIQUE: Frontal chest, supine abdomen and upright/decubitus abdomen radiographic images acquired. LIMITATIONS: None. FINDINGS: CHEST: Lungs clear of infiltrates. AICD device is identified in position. Patient is sta tus post median sternotomy. Some elevation of the left hemidiaphragm is seen. FREE AIR: None. No abnormal gas collections. BOWEL GAS PATTERN: Nonobstructive pattern. No dilated loops or air fluid levels. CALCIFICATIONS: No suspicious calcifications. HARDWARE: Surgical clips are identified in the right upper quadrant. Multiple surgical clips are tia ntified in the pelvis SOFT TISSUES: No gross mass or suggestion of organomegaly. BONES: No acute fracture. No worrisome bone lesions. Mild thoracolumbar scoliosis is identified. OTHER: No other significant finding. IMPRESSION: NO RADIOGRAPHIC EVIDENCE FOR ACUTE ABDOMINAL DISEASE. TECHNICAL DOCUMENTATION: JOB ID: [id number] [employer]- All Rights Reserved Reading location - IP/workstation name: [email or web address]
[2018-02-24 15:15] LABS: ALANINE AMINOTRANSFERASE 38 U/L (21-72); ALBUMIN 3.7 g/dL (3.5-5.0); ALKALINE PHOSPHATASE 126 U/L (38-126); ANION GAP 11 (5-19); ASPARTATE AMINO TRANSFERASE 47 U/L (17-59); BILIRUBIN,DIRECT 0.3 mg/dL (0.0-0.4); BILIRUBIN,TOTAL 0.9 mg/dL (0.2-1.3); BLOOD UREA NITROGEN 19 mg/dL (7-20); CALCIUM 8.9 mg/dL (8.4-10.2); CARBON DIOXIDE 27 mmol/L (22-30); CHLORIDE 101 mmol/L (98-107); GLUCOSE 78 mg/dL (75-110); LIPASE 94.6 U/L (23-300); POTASSIUM 4.3 mmol/L (3.6-5.0); TOTAL PROTEIN 6.3 g/dL (6.3-8.2)
--- NOTE | 2018-02-24 17:16 | ER Document Report ---
ED GI/ - General Chief Complaint: Abdominal Pain Stated Complaint: STOMACH PAIN Time Seen by Provider: 02/24/18 14:22 Mode of Arrival: Ambulatory Information source: Patient Notes: Chief complaint: abdominal pain: History of complain:( obtained from----patient) 77 years old male presents today with on and off epigastric pain and bloating sensation for the last several months. Recently he has lost his appetite therefore presented to the ED. Denies any nausea vomiting diarrhea or constipation. He has chronic angina, takes nitroglycerin as needed basis which relieved any discomfort he gets in the chest. Denies any fever chills or other constitutional symptoms Onset: As above gradual long-standing Duration: Long-standing Severity: Mild to moderate Quality: Dull Context: Not applicable Exacerbating factor and relieving factors: REVIEW OF SYSTEMS: CONSTITUTIONAL : Denies fever, chills, or sweats. Denies recent illness. EENT: Denies eye, ear, throat, or mouth pain or symptoms. Denies nasal or sinus congestion or discharge. Denies throat, tongue, or mouth swelling or difficulty swallowing. CARDIOVASCULAR: Denies chest pain. Denies palpitations or racing or irregular heart beat. Denies ankle edema. RESPIRATORY: Denies cough, cold, or chest congestion. Denies shortness of breath, difficulty breathing, or wheezing. GASTROINTESTINAL: Denies distention. Denies nausea, vomiting, or diarrhea. Denies blood in vomitus, stools, or per rectum. Denies black, tarry stools. Denies constipation. GENITOURINARY: Denies difficulty urinating, painful urination, burning, frequency, blood in urine, or discharge. FEMALE GENITOURINARY: Denies vaginal bleeding, heavy or abnormal periods, irregular periods. Denies vaginal discharge or odor. MUSCULOSKELETAL: Denies back or neck pain or stiffness. Denies joint pain or swelling. SKIN: Denies rash, lesions or sores. HEMATOLOGIC : Denies easy bruising or bleeding. LYMPHATIC: Denies swollen, enlarged glands. NEUROLOGICAL: Denies confusion or altered mental status. Denies passing out or loss of consciousness. Denies dizziness or lightheadedness. Denies headache. Denies weakness or paralysis or loss of use of either side. Denies problems with gait or speech. Denies sensory loss, numbness, or tingling. Denies seizures. PSYCHIATRIC: Denies anxiety or stress. Denies depression, suicidal ideation, or homicidal ideation. ALL OTHER SYSTEMS REVIEWED AND NEGATIVE. PHYSICAL EXAMINATION: GENERAL: Well-appearing, well-nourished and in no acute distress. Pleasant gentleman not in any acute distress HEAD: Atraumatic, normocephalic. EYES: Pupils equal round and reactive to light, extraocular movements intact, conjunctiva are normal. ENT: Nares patent, oropharynx clear without exudates. Moist mucous membranes. NECK: Normal range of motion, supple without lymphadenopathy LUNGS: Breath sounds clear to auscultation bilaterally and equal. No wheezes rales or rhonchi. HEART: Regular rate and rhythm without murmurs ABDOMEN: Soft, nontender, nondistended abdomen. No guarding, no rebound. No masses appreciated. Female : deferred Musculoskeletal: Normal range of motion, no pitting or edema. No cyanosis. NEUROLOGICAL: Cranial nerves grossly intact. Normal speech, normal gait. Normal sensory, motor exams PSYCH: Normal mood, normal affect. SKIN: Warm, Dry, normal turgor, no rashes or lesions noted. Dictation was performed using [employer] voice recognition software TRAVEL OUTSIDE OF THE [place] IN LAST 30 DAYS: No - Related Data Allergies/Adverse Reactions: iodine [Iodine] Allergy (Unknown, Verified 02/24/18 13:33) Itching morphine [Morphine] Allergy (Verified 02/24/18 13:33) itching oxycodone HCl [From Percocet] Allergy (Verified 02/24/18 13:33) Hallucinations Past Medical History - Social History Smoking Status: Never Smoker Chew tobacco use (# tins/day): No Frequency of alcohol use: Occasional Drug Abuse: None Family History: Reviewed & Not Pertinent, CAD - brother Patient has suicidal ideation: No Patient has homicidal ideation: No - Past Medical History Cardiac Medical History: Reports: Hx Coronary Artery Disease, Hx Hypercholesterolemia, Hx Hypertension Denies: Hx Heart Attack Pulmonary Medical History: Denies: Hx Tuberculosis Neurological Medical History: Denies: Hx Seizures Renal/ Medical History: Denies: Hx Peritoneal Dialysis Musculoskeltal Medical History: Reports Hx Arthritis Past Surgical History: Reports: Hx Appendectomy, Hx Cardiac Catheterization, Hx Cardiac Surgery - Pacemaker, Hx Cholecystectomy, Hx Coronary Artery Bypass Graft , Hx Internal Defibrillator, Hx Open Heart Surgery - CABG April 2015, Hx Orthopedic Surgery - Knee replacement - Immunizations Immunizations up to date: Yes Hx Diphtheria, Pertussis, Tetanus Vaccination: Yes Hx Pneumococcal Vaccination: 10/02/16 Review of Systems - Review of Systems Notes: Dictated Physical Exam - Vital signs Vitals: Temp Pulse Resp BP Pulse Ox 98.8 F 80 18 101/68 97 02/24/18 13:28 02/24/18 13:28 02/24/18 13:28 02/24/18 13:28 02/24/18 13:28 - Notes Notes: Dictated Course - Re-evaluation Re-evalutation: 02/24/18 17:13 Advised on epigastric discomfort, diet. - Vital Signs Vital signs: Temp Pulse Resp BP Pulse Ox 98.8 F 80 18 101/68 97 02/24/18 13:28 02/24/18 13:28 02/24/18 13:28 02/24/18 13:28 02/24/18 13:28 - Laboratory Result Diagrams: 02/24/18 14:35 02/24/18 14:35 Laboratory results interpreted by me: 02/24/18 14:35 WBC 3.2 L RBC 4.31 L Hgb 13.2 L RDW 14.5 H - Diagnostic Test Radiology reviewed: Reports reviewed - X-ray reported by radiologist as normal. Abdominal series Discharge - Discharge Clinical Impression: Loss of appetite Gastritis Qualifiers: Gastritis type: unspecified gastritis Chronicity: chronic Gastritis bleeding: without bleeding Qualified Code(s): K29.50 - Unspecified chronic gastritis without bleeding Condition: Fair Disposition: HOME, SELF-CARE Instructions: Abdominal Pain ([facility]) Prescriptions: Lansoprazole [Prevacid 30 Mg Odt Tablet] 30 mg PO ARIELLE #60 tab.cait. Megestrol Acetate [Megace Es] 625 mg PO DAILY #120 oral.susp Referrals: NANI TEJEDA MD [Primary Care Provider] - Follow up as needed
[2018-02-24 17:54] VITALS: BP 106/81
--- NOTE | 2018-02-24 19:47 | EKG REPORT ---
SEVERITY:- BORDERLINE ECG - SINUS RHYTHM PROBABLE LEFT ATRIAL ABNORMALITY NS ANTRIOR T CHANGES. : Confirmed by: Ankita Lo MD 24-Feb-2018 19:46:45
== END 2018-02-24 17:52 | disposition home or self-care (01) ==
LOC: ER 13:22
DX: K29.50 Unspecified chronic gastritis without bleeding (principal); R10.13 Epigastric pain; R63.0 Anorexia; E78.00 Pure hypercholesterolemia, unspecified; I25.10 Atherosclerotic heart disease of native coronary artery without angina pectoris; I10 Essential (primary) hypertension; Z88.6 Allergy status to analgesic agent; Z90.49 Acquired absence of other specified parts of digestive tract; Z95.1 Presence of aortocoronary bypass graft; Z95.810 Presence of automatic (implantable) cardiac defibrillator
CPT/HCPCS: 36415; 74022; 80053; 83690; 84484; 85025; 93005; 93010; 99284

== ENCOUNTER 2018-03-23 20:31 | Emergency (ER) | payer MEDICARE, OTHER ==
--- NOTE | 2018-03-23 21:09 | ER Document Report ---
ED Medical Screen (RME) - General Chief Complaint: Chest Pain Stated Complaint: FALL/CHEST PAIN Time Seen by Provider: 03/23/18 21:06 Mode of Arrival: Ambulatory Information source: Patient Notes: Patient is a 77-year-old male who presents after having an episode of syncope. Patient reports that he was having chest pain at the time, passed out possibly striking his head onto a hard surface. Patient reports that he now has worsening chest pressure. Patient reports when the chest pain started he had associated nausea, shortness of breath and felt hot. After the episode of syncope patient reports a frontal headache, patient reports that this was a gradual onset. Patient is alert, oriented and able to answer all questions. Exam: GENERAL: Well-appearing, well-nourished and in no acute distress. HEAD: Atraumatic, normocephalic. EYES: Pupils equal round and reactive to light, extraocular movements intact, sclera anicteric, conjunctiva are normal. ENT: Nares patent, oropharynx clear without exudates. Moist mucous membranes. NECK: Normal range of motion, supple without lymphadenopathy LUNGS: Breath sounds clear to auscultation bilaterally and equal. No wheezes rales or rhonchi. HEART: Regular rate and rhythm without murmurs NEUROLOGICAL: Cranial nerves grossly intact. Normal speech, normal gait. Normal sensory, motor exams PSYCH: Normal mood, normal affect. SKIN: Warm, Dry, normal turgor, no rashes or lesions noted. I have greeted and performed a rapid initial assessment of this patient. A comprehensive ED assessment and evaluation of the patient, analysis of test results and completion of the medical decision making process will be conducted by additional ED providers. Dictation of this chart was performed using voice recognition software; therefore, there may be some unintended grammatical errors. TRAVEL OUTSIDE OF THE [place] IN LAST 30 DAYS: No - Related Data Allergies/Adverse Reactions: iodine [Iodine] Allergy (Unknown, Verified 02/24/18 13:33) Itching morphine [Morphine] Allergy (Verified 02/24/18 13:33) itching oxycodone HCl [From Percocet] Allergy (Verified 02/24/18 13:33) Hallucinations Past Medical History - Past Medical History Cardiac Medical History: Reports: Hx Coronary Artery Disease, Hx Hypercholesterolemia, Hx Hypertension Denies: Hx Heart Attack Pulmonary Medical History: Denies: Hx Tuberculosis Neurological Medical History: Denies: Hx Seizures Renal/ Medical History: Denies: Hx Peritoneal Dialysis Musculoskeltal Medical History: Reports Hx Arthritis Past Surgical History: Reports: Hx Appendectomy, Hx Cardiac Catheterization, Hx Cardiac Surgery - Pacemaker, Hx Cholecystectomy, Hx Coronary Artery Bypass Graft , Hx Internal Defibrillator, Hx Open Heart Surgery - CABG April 2015, Hx Orthopedic Surgery - Knee replacement - Immunizations Immunizations up to date: Yes Hx Diphtheria, Pertussis, Tetanus Vaccination: Yes Physical Exam - Vital signs Vitals: Temp Pulse Resp BP Pulse Ox 97.9 F 70 20 97/57 L 98 03/23/18 20:52 03/23/18 20:52 03/23/18 20:52 03/23/18 20:52 03/23/18 20:52 Course - Vital Signs Vital signs: Temp Pulse Resp BP Pulse Ox 97.9 F 70 20 97/57 L 98 03/23/18 20:52 03/23/18 20:52 03/23/18 20:52 03/23/18 20:52 03/23/18 20:52 Doctor's Discharge - Discharge Referrals: NANI TEJEDA MD [Primary Care Provider] - Follow up as needed
--- NOTE | 2018-03-23 21:19 | RADIOLOGY REPORT (SQ) ---
EXAM DESCRIPTION: CHEST 2 VIEWS COMPLETED DATE/TIME: 03/23/2018 9:11 pm REASON FOR STUDY: FALL COMPARISON: 12/24/2016. EXAM PARAMETERS: NUMBER OF VIEWS: two views TECHNIQUE: Digital Frontal and Lateral radiographic views of the chest acquired. RADIATION DOSE: NA LIMITATIONS: none FINDINGS: LUNGS AND PLEURA: Chronic elevation of the left hemidiaphragm. No opacities, masses or pn eumothorax. No pleural effusion. MEDIASTINUM AND HILAR STRUCTURES: No masses or contour abnormalities. HEART AND VASCULAR STRUCTURES: Heart normal size. No evidence for failure. BONES: No acute findings. HARDWARE: Sternotomy wires and surgical clips. Defibrillator. OTHER: No other significant finding. IMPRESSION: NO ACUTE RADIOGRAPHIC FINDING IN THE CHEST. TECHNICAL DOCUMENTATION: JOB ID: [id number] [employer]- All Rights Reserved Reading location - IP/workstation name: [email or web address]
--- NOTE | 2018-03-23 22:08 | EKG REPORT ---
SEVERITY:- ABNORMAL ECG - VENTRICULAR-PACED RHYTHM : Confirmed by: Ankita Lo MD 23-Mar-2018 22:07:31
[2018-03-23 22:42] LABS: ABSOLUTE EOSINOPHILS # (AUTO) 0.1 10^3/uL (0.0-0.6); ABSOLUTE LYMPHOCYTES (AUTO) 0.6 10^3/uL (0.5-4.7); ABSOLUTE MONOCYTES (AUTO) 0.3 10^3/uL (0.1-1.4); ABSOLUTE NEUT (AUTO) 3.5 10^3/uL (1.7-8.2); BASOPHILS % (AUTO) 0.6 % (0-2); EOSINOPHILS % (AUTO) 1.9 % (0-6); HEMATOCRIT 36.7 % (37.9-51.0); HEMOGLOBIN 12.4 g/dL (13.5-17.0); LYMPHOCYTES % (AUTO) 13.2 % (13-45); MEAN CORPUSCULAR HEMOGLOBIN 30.9 pg (27.0-33.4); MEAN CORPUSCULAR HGB CONC 33.8 g/dL (32.0-36.0); MEAN CORPUSCULAR VOLUME 91 fl (80-97); MONOCYTES % (AUTO) 7.3 % (3-13); PLATELET COUNT 168 10^3/uL (150-450); RED BLOOD COUNT 4.02 10^6/uL (4.35-5.55); RED CELL DISTRIBUTION WIDTH 14.7 % (11.5-14.0); TOTAL CELLS COUNTED % (AUTO) 100 %; WHITE BLOOD COUNT 4.6 10^3/uL (4.0-10.5)
[2018-03-23 23:08] LABS: ANION GAP 8 (5-19); BLOOD UREA NITROGEN 18 mg/dL (7-20); CALCIUM 8.5 mg/dL (8.4-10.2); CARBON DIOXIDE 28 mmol/L (22-30); CHLORIDE 105 mmol/L (98-107); GLUCOSE 82 mg/dL (75-110); POTASSIUM 4.3 mmol/L (3.6-5.0); SODIUM 141.4 mmol/L (137-145)
--- NOTE | 2018-03-23 23:16 | RADIOLOGY REPORT (SQ) ---
EXAM DESCRIPTION: CT CERVICAL SPINE WITHOUT IV CONTRAST COMPLETED DATE/TME: 03/23/2018 22:23 EXAM DESCRIPTION: CT of the cervical spine without contrast. CLINICAL HISTORY: fall COMPARISON: None available TECHNIQUE: Axial CT of the cervical spine obtained without contrast. FINDINGS: Straightening of the cervical lordosis is likely secondary to patient positioning. The atlantoaxial, atlantodental, and occipitoatlantal intervals are preserved. No fracture identified. Vertebral body height preserved. Prevertebral soft tissues are unremarkable. Moderate to severe multilevel loss of intervertebral disc height with endplate spondylosis, uncovertebral spurring, and facet arthropathy. Mild multilevel osseous neural foraminal narrowing. No definite osseous central canal narrowing. Spurring of the atlantodental dental articulation. Visualized skull base is intact. No fracture of the visualized facial bones. Visualized mastoid air cells and paranasal sinuses are well aerated. 3.8 cm heterogeneous left thyroid nodule with internal calcifications. No cervical lymphadenopathy. No pneumothorax in the visualized lung apices. Left-sided pacemaker leads partially visualized. Atherosclerotic vascular calcification. DLP:375.23 mGy-cm IMPRESSION: 1. No acute fracture or subluxation of the cervical spine. 2. Moderate to severe multilevel degenerative change throughout the cervical spine. 3. There is a 3.8 cm left thyroid nodule. Thyroid ultrasound recommended. This exam was performed according to our departmental dose-optimization program, which includes automated exposure control, adjustment of the mA and/or kV according to patient size and/or use of iterative reconstruction technique.
--- NOTE | 2018-03-23 23:17 | RADIOLOGY REPORT (SQ) ---
EXAM DESCRIPTION: CT HEAD WITHOUT IV CONTRAST COMPLETED DATE/TME: 03/23/2018 22:22 CLINICAL HISTORY: Fall/injury. COMPARISON: None available TECHNIQUE: Axial CT of the head obtained from the skull apex to the skull base without contrast. FINDINGS: No acute intracranial hemorrhage identified. No mass, mass effect, shift of the midline, abnormal extra-axial fluid collection or CT evidence of acute ischemic change identified. The ventricular system and sulcal spaces are mildly enlarged compatible with mild cerebral atrophy. Scattered areas of hypodensity throughout the supratentorial white matter are nonspecific and may be related to chronic small vessel ischemic change. The visualized paranasal sinuses and the mastoids are clear. No skull fracture identified. Visualized orbits and globes are unremarkable. Atherosclerotic calcification of the intracranial internal carotid arteries. DLP: 963.96 mGy-cm IMPRESSION: 1. No acute intracranial abnormality by CT criteria. This exam was performed according to our departmental dose-optimization program, which includes automated exposure control, adjustment of the mA and/or kV according to patient size and/or use of iterative reconstruction technique.
[2018-03-24] MEDS ORDERED: ACETAMINOPHEN 325 MG TABLET PO ONE (01:01)
--- NOTE | 2018-03-24 01:02 | ER Document Report ---
ED General - General Chief Complaint: Chest Pain Stated Complaint: FALL/CHEST PAIN Time Seen by Provider: 03/23/18 21:06 Mode of Arrival: Ambulatory Notes: Patient is a 77-year-old male with a past medical history of hypertension, atrial fibrillation, congestive heart failure status post pacemaker defibrillator placement who presents with an episode of syncope just prior to arrival. Patient states that he fell to the ground, is uncertain if he completely lost consciousness but believes he hit his head and chest on a concrete floor. States he was able to get up and sit on a chair and then call his who brought him here to the hospital. He notes a dull throbbing, constant, mild pain to the left side of his head. Nothing improves or worsens that pain. He does take rivaroxaban for anticoagulation. He denies any focal weakness, numbness, or altered mental status since the fall. No vomiting. He had 2 syncopal episodes in the past 9 days prior to today. He did see his emr specialist 2 days ago and they apparently commented that he had "an event" I want the days that he had syncope but did not make any further recommendations or clarify what they meant by this according to the patient. His family the bedside does however clarify that the patient did not tell him that he had syncopized. He denies any chest pain prior to the episode, state he felt somewhat lightheaded and dizzy before he had the episode of near syncope or syncope. At the time of my assessment the patient states he feels very well and would like to go home. He has not contacted his doctor regarding today's concerns. TRAVEL OUTSIDE OF THE [place] IN LAST 30 DAYS: No - Related Data Allergies/Adverse Reactions: iodine [Iodine] Allergy (Unknown, Verified 02/24/18 13:33) Itching morphine [Morphine] Allergy (Verified 02/24/18 13:33) itching oxycodone HCl [From Percocet] Allergy (Verified 02/24/18 13:33) Hallucinations Past Medical History - General Information source: Patient - Social History Smoking Status: Former Smoker Chew tobacco use (# tins/day): No Frequency of alcohol use: None Drug Abuse: None Lives with: Spouse/Significant other Family History: Reviewed & Not Pertinent, CAD - brother Patient has suicidal ideation: No Patient has homicidal ideation: No - Past Medical History Cardiac Medical History: Reports: Hx Coronary Artery Disease, Hx Hypercholesterolemia, Hx Hypertension Denies: Hx Heart Attack Pulmonary Medical History: Denies: Hx Tuberculosis Neurological Medical History: Denies: Hx Seizures Renal/ Medical History: Denies: Hx Peritoneal Dialysis Musculoskeletal Medical History: Reports Hx Arthritis Past Surgical History: Reports: Hx Appendectomy, Hx Cardiac Catheterization, Hx Cardiac Surgery - Pacemaker, Hx Cholecystectomy, Hx Coronary Artery Bypass Graft , Hx Internal Defibrillator, Hx Open Heart Surgery - CABG April 2015, Hx Orthopedic Surgery - Knee replacement - Immunizations Immunizations up to date: Yes Hx Diphtheria, Pertussis, Tetanus Vaccination: Yes Hx Pneumococcal Vaccination: 10/02/16 Review of Systems - Review of Systems Notes: Constitutional: Negative for fever. HENT: Negative for sore throat. Eyes: Negative for visual changes. Cardiovascular: Negative for chest pain. Positive for syncope Respiratory: Negative for shortness of breath. Gastrointestinal: Negative for abdominal pain, vomiting or diarrhea. Genitourinary: Negative for dysuria. Musculoskeletal: Negative for back pain. Skin: Negative for rash. Neurological: Positive for headache 10 point ROS negative except as marked above and in HPI. Physical Exam - Vital signs Vitals: Temp Pulse Resp BP Pulse Ox 97.9 F 70 20 97/57 L 98 03/23/18 20:52 03/23/18 20:52 03/23/18 20:52 03/23/18 20:52 03/23/18 20:52 Interpretation: Normal Notes: PHYSICAL EXAMINATION: GENERAL: Well-appearing, no acute distress. HEAD: Atraumatic, normocephalic. EYES: Pupils equal round and reactive to light, extraocular movements intact, sclera anicteric, conjunctiva are normal. ENT: nares patent, no oral pharyngeal trauma. No hemotympanum, no Nguyen's sign , no raccoon eyes. NECK: No midline cervical spine tenderness. Patient able to move their head to 45 bilaterally without any discomfort. LUNGS: Breath sounds clear to auscultation bilaterally and equal. No wheezes rales or rhonchi. HEART: Regular rate and rhythm, 2 out of 6 systolic ejection murmur CHEST WALL: No ecchymosis over the chest wall. ABDOMEN: Soft, nontender, normoactive bowel sounds. No guarding, no rebound. No seatbelt sign. EXTREMITIES: Normal range of motion, no pitting or edema. No long bone deformities. BACK: No midline spinal tenderness, step-offs, or deformities. NEUROLOGICAL: Face symmetric. Tongue protrudes midline. Extraocular motions intact. Pupils are 2 mm and equally reactive. Normal speech, normal gait. 5 out of 5 strength in both the distal and proximal upper and lower extremities bilaterally. Sensation is grossly intact throughout. Finger to nose testing normal. Pronator drift normal. PSYCH: Normal mood, normal affect. SKIN: Warm, Dry, normal turgor, no rashes or lesions noted. Course - Re-evaluation Re-evalutation: 03/24/18 00:58 Patient presents after what appears to be a syncopal episode hitting his head and chest. CT of the head and cervical spine unremarkable. Chest x-ray clear. Labs unremarkable. Patient denies any symptoms at this time. This is actually the third time that the patient has passed out in the past 9 days. He saw his emr specialist on Friday, they told him that he had "an event" during 1 of those episodes of syncope but he does not understand further what they were talking about. He has a [employer] pacemaker, defibrillator in place which is quite reassuring in the setting but ideally I would like to be able to interrogate this tonight. I spoke with Deangelo with [employer] and he is asked to the patient to be seen in the office tomorrow as opposed to [facility]. The family is agreeable to this plan, will prefer discharge home versus hospitalization for inpatient interrogation and monitoring. At this time will discharge with return precautions and follow-up recommendations. Verbal discharge instructions given a the bedside and opportunity for questions given. Medication warnings reviewed. Patient is in agreement with this plan and has verbalized understanding of return precautions and the need for primary care follow-up in the next 24-72 hours. - Vital Signs Vital signs: Temp Pulse Resp BP Pulse Ox 98.1 F 70 16 103/68 97 03/24/18 01:27 03/23/18 20:52 03/24/18 01:27 03/24/18 01:27 03/24/18 01:01 - Laboratory Result Diagrams: 03/23/18 22:30 03/23/18 22:30 Laboratory results interpreted by me: 03/23/18 22:30 RBC 4.02 L Hgb 12.4 L Hct 36.7 L RDW 14.7 H - Diagnostic Test Radiology reviewed: Image reviewed, Reports reviewed Radiology results interpreted by me: 03/24/18 01:00 CT head: No acute intracranial bleed or mass Chest x-ray: No acute fractures or pneumothoraces - EKG Interpretation by Me Additional EKG results interpreted by me: 03/24/18 01:01 Ventricular paced rhythm. Rate 89. Discharge - Discharge Clinical Impression: Recurrent syncope, Cardiac defibrillator in situ Condition: Stable Disposition: HOME, SELF-CARE Additional Instructions: Please follow-up with your emr specialist first thing tomorrow for interrogation of your pacemaker defibrillator. Return if you have any additional episodes of passing out, chest pain, shortness of breath, or any other symptoms that are worrisome to you. Your labs, CT scans of your head and neck as well as her chest x-ray are all normal. Take Tylenol 1000 mill grams every 6 hours as needed for pain. Referrals: NANI TEJEDA MD [Primary Care Provider] - Follow up as needed
[2018-03-24 01:32] VITALS: BP 103/68
== END 2018-03-24 01:37 | disposition home or self-care (01) ==
LOC: ER 20:31
DX: R55 Syncope and collapse (principal); Z95.810 Presence of automatic (implantable) cardiac defibrillator; R51 Headache; W19.XXXA Unspecified fall, initial encounter; I25.10 Atherosclerotic heart disease of native coronary artery without angina pectoris; I10 Essential (primary) hypertension; I48.91 Unspecified atrial fibrillation; Z79.01 Long term (current) use of anticoagulants; Z88.5 Allergy status to narcotic agent; Z87.891 Personal history of nicotine dependence; Z82.49 Family history of ischemic heart disease and other diseases of the circulatory system; Z95.1 Presence of aortocoronary bypass graft
CPT/HCPCS: 93005; 99285; 36415; 85025; 80048; 84484; 71046; 70450; 72125; 93010; A9270

== ENCOUNTER 2018-07-19 19:03 | Observation (INO) | payer MEDICARE, OTHER ==
--- NOTE | 2018-07-19 19:33 | ER Document Report ---
ED Syncope and Near Syncope - General Stated Complaint: PASSED OUT Time Seen by Provider: 07/19/18 19:19 Mode of Arrival: Medic Information source: Patient Notes: Patient is an 78-year-old male with hypertension, atrial fibrillation, CHF and pacer/defib who presents to the emergency department via EMS after a syncopal episode. Patient reports that he was standing outside talking with some of his friends when he all of a sudden felt diaphoretic and then passed out. He reports that his friends caught him and he did not fall. Patient denies striking his head on anything. Patient does report he has had an episode of syncope approximately 1 year ago. Patient currently reports a mild headache, rates 1/5. Denies any chest pain or shortness of breath. Patient's primary care physician is at [facility]. He sees Dr. Ad Keita for cardiology. He denies any recent illness. TRAVEL OUTSIDE OF THE [place] IN LAST 30 DAYS: No - Related Data Allergies/Adverse Reactions: iodine [Iodine] Allergy (Unknown, Verified 02/24/18 13:33) Itching morphine [Morphine] Allergy (Verified 02/24/18 13:33) itching oxycodone HCl [From Percocet] Allergy (Verified 02/24/18 13:33) Hallucinations Past Medical History - General Information source: Patient - Social History Smoking Status: Never Smoker Frequency of alcohol use: None Drug Abuse: None Family History: Reviewed & Not Pertinent, CAD - brother - Past Medical History Cardiac Medical History: Reports: Hx Coronary Artery Disease, Hx Hypercholesterolemia, Hx Hypertension Denies: Hx Heart Attack Pulmonary Medical History: Denies: Hx Tuberculosis Neurological Medical History: Denies: Hx Seizures Renal/ Medical History: Denies: Hx Peritoneal Dialysis Musculoskeletal Medical History: Reports Hx Arthritis Past Surgical History: Reports: Hx Appendectomy, Hx Cardiac Catheterization, Hx Cardiac Surgery - Pacemaker, Hx Cholecystectomy, Hx Coronary Artery Bypass Graft , Hx Internal Defibrillator, Hx Open Heart Surgery - CABG April 2015, Hx Orthopedic Surgery - Knee replacement - Immunizations Immunizations up to date: Yes Hx Diphtheria, Pertussis, Tetanus Vaccination: Yes Hx Pneumococcal Vaccination: 10/02/16 Review of Systems - Review of Systems Neurological/Psychological: Headaches, Other - Syncope -: Yes All other systems reviewed and negative Physical Exam - Vital signs Vitals: Temp 97.6 F 07/19/18 19:15 - Notes Notes: PHYSICAL EXAMINATION: GENERAL: Well-appearing, well-nourished and in no acute distress. HEAD: Atraumatic, normocephalic. EYES: Pupils equal round and reactive to light, extraocular movements intact, sclera anicteric, conjunctiva are normal. ENT: Nares patent, oropharynx clear without exudates. Moist mucous membranes. NECK: Normal range of motion, supple without lymphadenopathy LUNGS: Breath sounds clear to auscultation bilaterally and equal. No wheezes rales or rhonchi. HEART: Regular rate and rhythm without murmurs ABDOMEN: Soft, nontender, nondistended abdomen. No guarding, no rebound. No masses appreciated. Musculoskeletal: Normal range of motion, no pitting or edema. No cyanosis. NEUROLOGICAL: Cranial nerves grossly intact. Normal speech. Normal sensory, motor exams PSYCH: Normal mood, normal affect. SKIN: Warm, Dry, normal turgor, no rashes or lesions noted. Course - Re-evaluation Re-evalutation: Patient is a pleasant 78 year old male who is nontoxic in appearance, alert and oriented x4. CBC, CMP and initial cardiac enzymes are unremarkable. Head CT is negative for any acute findings. Chest x-ray is unremarkable with no evidence of pneumothorax or infiltrates. Patient remains awake and alert and his vital signs are stable. Patient reports the last time his pacemaker was interrogated was last month in Dr. Keita's office. He states that they found no abnormalities at that time. Patient and family both voiced concern as they state that he has had multiple episodes of syncope over the last year. Consulted hospitalist, Dr. Paulson for admission. She agrees to bring the patient in on observation status. - Vital Signs Vital signs: Temp Pulse Resp BP Pulse Ox 97.6 F 18 113/68 96 07/19/18 19:15 07/19/18 22:00 07/19/18 19:17 07/19/18 22:00 - Laboratory Result Diagrams: 07/19/18 20:06 07/19/18 20:06 Laboratory results interpreted by me: 07/19/18 07/19/18 20:06 20:06 RBC 3.83 L Hgb 11.9 L Hct 35.0 L RDW 14.4 H Seg Neutrophils % 79.9 H Lymphocytes % 9.0 L Absolute Lymphocytes 0.4 L Alkaline Phosphatase 137 H Total Protein 5.8 L Albumin 3.4 L Discharge - Discharge Clinical Impression: Syncope Qualifiers: Syncope type: unspecified Qualified Code(s): R55 - Syncope and collapse Condition: Stable Disposition: ADMITTED OBSERVATION Admitting Provider: Hospitalist Unit Admitted: Telemetry
[2018-07-19 20:15] LABS: ABSOLUTE LYMPHOCYTES (AUTO) 0.4 10^3/uL (0.5-4.7); ABSOLUTE MONOCYTES (AUTO) 0.4 10^3/uL (0.1-1.4); ABSOLUTE NEUT (AUTO) 3.6 10^3/uL (1.7-8.2); BASOPHILS % (AUTO) 0.4 % (0-2); EOSINOPHILS % (AUTO) 0.9 % (0-6); HEMOGLOBIN 11.9 g/dL (13.5-17.0); MEAN CORPUSCULAR HEMOGLOBIN 30.9 pg (27.0-33.4); MEAN CORPUSCULAR HGB CONC 33.8 g/dL (32.0-36.0); MEAN CORPUSCULAR VOLUME 91 fl (80-97); MONOCYTES % (AUTO) 9.8 % (3-13); PLATELET COUNT 159 10^3/uL (150-450); RED BLOOD COUNT 3.83 10^6/uL (4.35-5.55); RED CELL DISTRIBUTION WIDTH 14.4 % (11.5-14.0); SEGMENTED NEUTROPHILS % (AUTO) 79.9 % (42-78); TOTAL CELLS COUNTED % (AUTO) 100 %; WHITE BLOOD COUNT 4.5 10^3/uL (4.0-10.5)
--- NOTE | 2018-07-19 20:25 | RADIOLOGY REPORT (SQ) ---
EXAM DESCRIPTION: CT HEAD WITHOUT COMPLETED DATE/TIME: 07/19/2018 8:15 pm REASON FOR STUDY: syncope COMPARISON: 03/23/2018 TECHNIQUE: Axial images acquired through the brain without intravenous contrast. Images reviewed wi th bone, brain and subdural windows. Additional sagittal and coronal reconstructions were generated. Images stored on PACS. All CT scanners at this facility use dose modulation, iterative reconstruction, and/or weight based d osing when appropriate to reduce radiation dose to as low as reasonably achievable (ALARA). [facility]: Dose Right [facility]: CareDose [facility]: Dose Right [facility]: Teradose 4D [facility]: Smart [employer] RADIATION DOSE: CT Rad equipment meets quality standard of care and radiation dose reduction techniq ues were employed. CTDIvol: 53.2 mGy. DLP: 1017 mGy-cm. mGy. LIMITATIONS: None. FINDINGS: VENTRICLES: Normal size and contour. CEREBRUM: No masses. No hemorrhage. No midline shift. No evidence for acute infarction. Normal gra y/white matter differentiation. No areas of low density in the white matter. CEREBELLUM: No masses. No hemorrhage. No alteration of density. No evidence for acute infarction. EXTRAAXIAL SPACES: No fluid collections. No masses. ORBITS AND GLOBE: No intra- or extraconal masses. Normal contour of globe without masses. CALVARIUM: No fracture. PARANASAL SINUSES: No fluid or mucosal thickening. SOFT TISSUES: No mass or hematoma. OTHER: No other significant finding. IMPRESSION: NORMAL BRAIN CT WITHOUT CONTRAST. EVIDENCE OF ACUTE STROKE: NO. COMMENT: Quality ID # [id number]: Final reports with documentation of one or more dose reduction techniques (e.g., Automated exposure control, adjustment of the mA and/or kV according to patient size, use of iterative reconstruction technique) TECHNICAL DOCUMENTATION: JOB ID: [id number] [employer]- All Rights Reserved Reading location - IP/workstation name: [email or web address]
[2018-07-19 20:31] LABS: ALANINE AMINOTRANSFERASE 29 U/L (21-72); ALBUMIN 3.4 g/dL (3.5-5.0); ALKALINE PHOSPHATASE 137 U/L (38-126); ANION GAP 11 (5-19); ASPARTATE AMINO TRANSFERASE 28 U/L (17-59); BILIRUBIN,DIRECT 0.3 mg/dL (0.0-0.4); BILIRUBIN,TOTAL 0.4 mg/dL (0.2-1.3); BLOOD UREA NITROGEN 18 mg/dL (7-20); CALCIUM 8.5 mg/dL (8.4-10.2); CARBON DIOXIDE 26 mmol/L (22-30); CHLORIDE 104 mmol/L (98-107); CREATINE KINASE 153 U/L (55-170); GLUCOSE 97 mg/dL (75-110); POTASSIUM 4.6 mmol/L (3.6-5.0); SODIUM 141.2 mmol/L (137-145); TOTAL PROTEIN 5.8 g/dL (6.3-8.2)
[2018-07-19 20:40] LABS: CREATINE KINASE MB 1.28 ng/mL (<4.55)
[2018-07-19 20:42] LABS: TROPONIN I < 0.012 ng/mL
--- NOTE | 2018-07-19 21:54 | RADIOLOGY REPORT (SQ) ---
EXAM DESCRIPTION: XR CHEST 1 VIEW COMPLETED DATE/TME: 07/19/2018 21:19 CLINICAL HISTORY: 78 years, Male, syncope COMPARISON: 03/23/2018 and 12/24/2016 NUMBER OF VIEWS: 03/23/2018 TECHNIQUE: AP LIMITATIONS: None. FINDINGS: Sternotomy wires, left chest AICD and surgical clips projecting in the left hilum are again noted. Cardiomediastinal silhouette is within normal limits in size. Again noted, asymmetric elevation of the left hemidiaphragm. No lung consolidate. No pleural effusion. No pneumothorax. IMPRESSION: No acute chest finding. 2010 [employer]- All Rights Reserved
[2018-07-19] MEDS ORDERED: PROMETHAZINE HCL 25 MG TABLET PO PRN (22:29)
[2018-07-19] MEDS ORDERED: NORMAL SALINE 1000 ML 1,000 ML IV PRN (22:29)
[2018-07-19] MEDS ORDERED: MAG HYDROX/AL HYDROX/SIMETH SUSP 30 ML UDCUP PO PRN (22:29)
[2018-07-19] MEDS ORDERED: ACETAMINOPHEN 325 MG TABLET PO PRN (22:29)
[2018-07-19] MEDS ORDERED: TEMAZEPAM 7.5 MG CAPSULE PO PRN (22:29)
[2018-07-19] MEDS ORDERED: PROMETHAZINE HCL INJ 25 MG/1 ML VIAL IV PRN (22:29)
[2018-07-19] MEDS ORDERED: NITROGLYCERIN 0.4 MG/TAB 25 TAB/BOTTLE SL PRN (22:41)
[2018-07-19] MEDS ORDERED: ONDANSETRON 4 MG TAB.RAPDIS PO PRN (22:41)
[2018-07-19] MEDS ORDERED: TRAMADOL HCL 50 MG TABLET PO PRN (22:41)
[2018-07-19] MEDS ORDERED: RANOLAZINE 500 MG TAB.SR.12H PO ONE (23:00)
[2018-07-19] MEDS ORDERED: LORATADINE 10 MG TABLET PO PRN (23:00)
[2018-07-19] MEDS ORDERED: ATORVASTATIN CALCIUM 20 MG TABLET PO ONE (23:15)
[2018-07-19] MEDS ORDERED: METOPROLOL TARTRATE 100 MG TABLET PO ONE (23:15)
--- NOTE | 2018-07-19 23:24 | PDOC H&P ---
History of Present Illness Admission Date/PCP: 07/19/18 21:31 NANI TEJEDA MD Patient complains of: syncope History of Present Illness: JULIANA BADILLO JR is a 78 year old male with extensive medical history remarkable for coronary arterial disease with CABG bypass and stents placed, pacemaker, paroxysmal atrial fibrillation on Xarelto, hypertension, GERD. Patient tells me that he has been at his regular state of health today when he was outside talking with some of his friends, his was present, he was trying to go up steps when suddenly he felt heart, dizzy, was diaphoretic and he was falling backwards, a friend held him and laid him on the floor, he did not hit his head, his tells me that he was out for about 20 minutes, when he woke up he was confused for about 10 minutes. Family at the bedside tells me that they took his pulse and it was a slow but they could not tell me what was the rate. EMS was called and transported to the emergency department, no medications given. Upon arrival to the emergency department his vital signs were stable with a pulse of 73, blood pressure 113/68 initial respiratory rate 30 that now is a stable. He has a pacemaker placed years ago. Patient tells me that he had a similar episode March this year and his pacemaker was interrogated without any new finding. Dr. Toyin Keita is his automotive general sales manager and was plan for a carotid ultrasound that was not done yet. Last pacemaker interrogation a month ago. Patient still complains of mild dizziness and headache, is not feeling back to his baseline. Denies chest pain, shortness of breath, abdominal pain, nausea, vomiting, fever , chills, changes on his bowel movements or in his urine. No orthostatic vital signs done in the ED. CT of the head negative So far first set of troponins negative, EKG shows sinus rhythm with a ventricular rate of 70 bpm, he has some T wave inversions in V1, V2, V3, no other EKG to compare to. Past Medical History Cardiac Medical History: Reports: Atrial Fibrillation, Coronary Artery Disease, Myocardial Infarction, Hyperlipidema, Hypertension GI Medical History: Reports: Gastroesophageal Reflux Disease Musculoskeltal Medical History: Reports: Arthritis, Gout Past Surgical History Past Surgical History: Reports: Appendectomy, Cardiac Catheterization, Cholecystectomy, Coronary Artery Bypass Graft - X3 bypasses in 2007, Internal Defibrillator, Orthopedic Surgery - Knee replacement Social History Smoking Status: Former Smoker - Quit in 1979, tells me he was not a heavy a smoker Frequency of Alcohol Use: Occasional Hx Recreational Drug Use: No Drugs: None Hx Prescription Drug Abuse: No Past Social History Note: Lives with his who is at the bedside. Independent with his ADLs. Family History Family History: Reviewed & Not Pertinent, CAD - brother Family History: Mother in her 40s unknown reason, father of complications of gallbladder on his 50s. He has a brother who on his 70s after a massive AK Parental Family History Reviewed: Yes - As above Children Family History Reviewed: Yes Sibling(s) Family History Reviewed.: Yes Medication/Allergy Home Medications: Amlodipine Besylate [Norvasc 5 mg Tablet] 5 mg PO DAILY 12/24/16 Aspirin [Ecotrin] 325 mg PO DAILY 12/24/16 Citalopram Hydrobromide [Celexa 20 mg Tablet] 20 mg PO DAILY 12/24/16 Colchicine [Colchicine 0.6 mg Tablet] 0.6 mg PO BID 12/24/16 Fexofenadine HCl [Jacki] 180 mg PO DAILYP PRN 12/24/16 Metoprolol Tartrate [Lopressor 100 mg Tablet] 100 mg PO Q12 12/24/16 Multivit-Min/FA/Lycopen/Lutein [Centrum Silver Men Tablet] 1 tab PO DAILY Nitroglycerin [Nitrostat 0.4 mg (1/150 Gr) Tabs 25/Bottle] 0.4 mg PO Q5MP PRN Omeprazole 20 mg PO ACBRKFST 12/24/16 Ranolazine [Ranexa] 1,000 mg PO Q12 12/24/16 Rosuvastatin Calcium [Crestor 10 mg Tablet] 10 mg PO DAILY 12/24/16 Telmisartan [Micardis 20 mg Tablet] 20 mg PO DAILY 12/24/16 Tramadol HCl [Ultram 50 mg Tablet] 50 mg PO Q6HP PRN 12/24/16 Ondansetron [Zofran Odt 4 mg Tablet] 1 - 2 tab PO Q4H PRN #15 tabjoan Lansoprazole [Prevacid 30 Mg Odt Tablet] 30 mg PO ACBRKFST #60 tab. Megestrol Acetate [Megace Es] 625 mg PO DAILY #120 oral.susp 02/24/18 Allergies/Adverse Reactions: iodine [Iodine] Allergy (Unknown, Verified 02/24/18 13:33) Itching morphine [Morphine] Allergy (Verified 02/24/18 13:33) itching oxycodone HCl [From Percocet] Allergy (Verified 02/24/18 13:33) Hallucinations Review of Systems Review of Systems: As outlined in the HPI, others negative Physical Exam Vital Signs: Temp Pulse Resp BP Pulse Ox 97.6 F 18 113/68 96 07/19/18 19:15 07/19/18 22:00 07/19/18 19:17 07/19/18 22:00 Additional comments: General appearance: Well-developed, well-nourished, alert and cooperative, and appears to be in no acute distress Head: Normocephalic Eyes: PEERL, EOMI, vision is grossly intact. Ears: External auditory canal and tympanic membranes clear, hearing moderately decreased. Nose: No nasal discharge. Throat: Oral cavity and pharynx normal. No inflammation, swelling, exudate or lesions. Neck: Neck supple, nontender without lymphadenopathy, masses or thyromegaly. Cardiac: Normal S1 and S2. No S3, S4 or murmurs. Rhythm is regular. There is no cyanosis or pallor. Extremities are warm and well perfused. Capillary refill is less than 2 seconds. No carotid bruits. Lungs: Clear to auscultation and percussion without rales, rhonchi, wheezing or diminished breath sounds. Not using accessory muscles. Abdomen: Positive bowel sounds. Soft. Nondistended, nontender. No guarding or rebound. No masses. No hepatosplenomegaly Extremities: No significant deformity or joint abnormality. No edema. Peripheral pulses intact. No varicosities. Neurological: Cranial nerves II through XII grossly intact. Strength and sensation symmetric and intact throughout. Reflexes 2+ throughout. Skin: Skin normal color, texture and turgor with no lesions or eruptions, warm and dry. Psychiatric: The mental examination revealed the patient was oriented to person , place, and time. The patient was able to demonstrate good judgment on recent , without hallucinations, abnormal affect or abnormal behaviors. Results Laboratory Results: 07/19/18 07/19/1818 20:06 20:06 20:06 WBC 4.5 RBC 3.83 L Hgb 11.9 L Hct 35.0 L MCV 91 MCH 30.9 MCHC 33.8 RDW 14.4 H Seg Neutrophils % 79.9 H Lymphocytes % 9.0 L Monocytes % 9.8 Eosinophils % 0.9 Basophils % 0.4 Absolute Neutrophils 3.6 Absolute Lymphocytes 0.4 L Absolute Monocytes 0.4 Absolute Eosinophils 0.0 Absolute Basophils 0.0 Sodium 141.2 Potassium 4.6 Chloride 104 Carbon Dioxide 26 Anion Gap 11 BUN 18 Creatinine 1.10 Est GFR ( Amer) > 60 Est GFR (Non-Af Amer) > 60 Glucose 97 Calcium 8.5 Total Bilirubin 0.4 Direct Bilirubin 0.3 AST 28 ALT 29 Alkaline Phosphatase 137 H Creatine Kinase 153 CK-MB (CK-2) 1.28 Troponin I < 0.012 Total Protein 5.8 L Albumin 3.4 L Impressions: Head CT 07/19/18 19:36 IMPRESSION: NORMAL BRAIN CT WITHOUT CONTRAST. EVIDENCE OF ACUTE STROKE: NO. Chest X-Ray 07/19/18 21:19 IMPRESSION: No acute chest finding. 2010 [employer]- All Rights Reserved Assessment & Plan - Diagnosis (1) Syncope Qualifiers: Syncope type: unspecified Qualified Code(s): R55 - Syncope and collapse Is this a current diagnosis for this admission?: Yes Plan: Patient comes with an episode of syncope, as per lasted about 20 minutes, patient has a prior syncope in March this year that was evaluated by his automotive general sales manager Dr. Keita and apparently was plan for a carotid ultrasound that for unknown reason has not been done. In the emergency department patient seems to be stable but is still with mild dizziness. I will keep the patient under telemetry monitoring. Cardiac enzymes x3. Carotid ultrasound and echocardiogram ordered. Cardiology consultation for evaluation and further recommendations. Orthostatic vital signs. Fall precautions. Placed in order to call pacemaker company for interrogation. His EKG shows T wave inversions in V1, V2, V3, next elevations or ST depressions , unfortunately we do not have other EKG to compare to, and placing an order for EKG in the morning. If headaches and dizziness has not resolved I would recommend to do an MRI of the brain, will have to know if he is pacemaker is MRI compatible. (2) CAD (coronary artery disease) Qualifiers: Coronary Disease-Associated Artery/Lesion type: unspecified vessel or lesion type [place] vs. transplanted heart: [place] heart Associated angina: without angina Qualified Code(s): I25.10 - Atherosclerotic heart disease of [place] coronary artery without angina pectoris Is this a current diagnosis for this admission?: Yes Plan: Patient has history of myocardial infarction, CABG with 3 bypasses and apparently also 3 stents placed. Follows with Dr. Keita. Resume home medications. Continue Ranexa, nitroglycerin sublingual as needed and rosuvastatin (3) HTN (hypertension) Is this a current diagnosis for this admission?: Yes Plan: Blood pressure has been well controlled in the emergency department. Resume home antihypertensive medications with metoprolol, Micardis and Cardizem (4) Paroxysmal atrial fibrillation Is this a current diagnosis for this admission?: Yes Plan: Patient is currently normal sinus rhythm, continue with Cardizem and Xarelto. (5) DVT prophylaxis Is this a current diagnosis for this admission?: Yes Plan: Xarelto - Time Time Spent: 50 to 70 Minutes - Plan Summary Plan Summary: Plan discussed with patient and at the bedside, and agree with it.
--- NOTE | 2018-07-20 00:42 | EKG REPORT ---
SEVERITY:- ABNORMAL ECG - SINUS RHYTHM PROBABLE LEFT ATRIAL ABNORMALITY NONSPECIFIC T ABNORMALITIES, ANTERIOR LEADS : Confirmed by: Leroy Peña 20-Jul-2018 00:41:37
[2018-07-20] MEDS: LANSOPRAZOLE 30 MG TAB.RAP.DR PO SCH (05:40)
[2018-07-20] MEDS ORDERED: LANSOPRAZOLE 15 MG TAB.RAP.DR PO SCH (06:00)
--- NOTE | 2018-07-20 06:59 | EKG REPORT ---
SEVERITY:- ABNORMAL ECG - SINUS RHYTHM PROBABLE LEFT ATRIAL ABNORMALITY ABNORMAL T, CONSIDER ISCHEMIA, ANTERIOR LEADS : Confirmed by: Leroy Peña 20-Jul-2018 06:58:50
[2018-07-20 09:14] LABS: ABSOLUTE EOSINOPHILS # (AUTO) 0.1 10^3/uL (0.0-0.6); ABSOLUTE LYMPHOCYTES (AUTO) 0.6 10^3/uL (0.5-4.7); ABSOLUTE MONOCYTES (AUTO) 0.5 10^3/uL (0.1-1.4); BASOPHILS % (AUTO) 0.4 % (0-2); EOSINOPHILS % (AUTO) 1.7 % (0-6); HEMATOCRIT 33.2 % (37.9-51.0); HEMOGLOBIN 11.3 g/dL (13.5-17.0); LYMPHOCYTES % (AUTO) 17.9 % (13-45); MEAN CORPUSCULAR HEMOGLOBIN 30.8 pg (27.0-33.4); MEAN CORPUSCULAR VOLUME 91 fl (80-97); PLATELET COUNT 144 10^3/uL (150-450); RED BLOOD COUNT 3.66 10^6/uL (4.35-5.55); RED CELL DISTRIBUTION WIDTH 14.5 % (11.5-14.0); TOTAL CELLS COUNTED % (AUTO) 100 %; WHITE BLOOD COUNT 3.2 10^3/uL (4.0-10.5)
[2018-07-20 09:20] LABS: PARTIAL THROMBOPLASTIN TIME 27.7 SEC (23.5-35.8); PROTHROMBIN TIME 14.8 SEC (11.4-15.4)
[2018-07-20 09:35] LABS: ANION GAP 10 (5-19); BLOOD UREA NITROGEN 15 mg/dL (7-20); CALCIUM 8.9 mg/dL (8.4-10.2); CARBON DIOXIDE 26 mmol/L (22-30); CHLORIDE 105 mmol/L (98-107); GLUCOSE 79 mg/dL (75-110); POTASSIUM 4.2 mmol/L (3.6-5.0); SODIUM 140.8 mmol/L (137-145)
[2018-07-20] MEDS: MEGESTROL ACETATE SUSP 400 MG/10 ML UDCUP PO SCH (11:56)
[2018-07-20] MEDS: DILTIAZEM HCL 120 MG CAP.SR.24H PO SCH (11:57)
[2018-07-20] MEDS: LOSARTAN POTASSIUM 25 MG TABLET PO SCH (11:58)
[2018-07-20] MEDS: CITALOPRAM HYDROBROMIDE 20 MG TABLET PO SCH (11:58)
[2018-07-20] MEDS: METOPROLOL TARTRATE 100 MG TABLET PO SCH ×2 (11:58→22:27)
[2018-07-20] MEDS: MULTIVITAMIN TABLET PO SCH (11:58)
[2018-07-20] MEDS: RANOLAZINE 500 MG TAB.SR.12H PO SCH ×2 (12:16→22:27)
[2018-07-20] MEDS: COLCHICINE 0.6 MG TABLET PO SCH ×2 (12:16→19:22)
[2018-07-20] MEDS: ASPIRIN 325 MG TABLET, ENT COATED PO SCH (12:16)
--- NOTE | 2018-07-20 13:53 | RADIOLOGY REPORT (SQ) ---
EXAM DESCRIPTION: CAROTID DOPPLER COMPLETED DATE/TIME: 07/20/2018 1:25 pm REASON FOR STUDY: syncope R55 SYNCOPE AND COLLAPSE COMPARISON: None. TECHNIQUE: Grayscale ultrasound, Doppler velocity and spectra, and color Doppler images acquired of the extra-cranial carotid and vertebral arteries. Images stored on PACS. LIMITATIONS: None. FINDINGS: RIGHT CAROTID CCA Velocities: 109 centimeters/second ICA Velocities Peak systolic 116 cm/s. End diastolic 40 cm/s. Proximal ICA/CCA peak systolic ratio 1.06. There are some small plaques in the carotid bulb and proximal internal carotid. LEFT CAROTID CCA Velocities: 80 centimeters/second ICA Velocities Peak systolic 108 cm/s. End diastolic 43 cm/s. Proximal ICA/CCA peak systolic ratio 1.35. There are some small plaques in the carotid bulb. VERTEBRAL ARTERIES: Antegrade flow. Normal waveforms. SUBCLAVIAN ARTERIES: No finding. OTHER: No other significant finding. IMPRESSION: NO HEMODYNAMICALLY SIGNIFICANT STENOSIS. COMMENT: Quality ID #[id number]: Velocity criteria are extrapolated from the diameter data as defined by t he Society of Radiologists in Ultrasound Consensus Conference. Radiology 2003: 229; 340-346. TECHNICAL DOCUMENTATION: JOB ID: [id number] [employer]- All Rights Reserved Reading location - IP/workstation name: [email or web address]
--- NOTE | 2018-07-20 14:04 | PDOC PROGRESS REPORT ---
Subjective Progress Note for:: 07/20/18 Subjective:: JULIANA BADILLO JR is a 78 year old male past medical history of CAD, CABG, PCI with a stent placement, pacemaker, chronic A. fib on Xarelto, hypertension and GERD. Patient was admitted for an episode of syncope. Stated that he was talking with some friends, was trying to go upstairs he felt dizzy diaphoretic and fell backwards. Friend who is accompanying helped him and laid him on the floor, he did not sustain any head trauma. who was also present states that he was out for about 20 minutes and when he regained consciousness he was confused for about 10 minutes. Family at bedside check his pulse and he reported it as slow rate. EMS called called in ED patient was found to have blood pressure of 113/68 with a pulse of 73 and respiratory rate of 30. His pacemaker was placed a year ago and he had a similar episode in March of this year, his pacemaker was interrogated. Interrogation was a month ago. Over Short And Damage Clerk is Dr. Keita. Negative orthostasis, CT head, troponins x3. CBC CMP within normal limits except for mild normocytic anemia. Cannot undergo an MRI of the head due to pacemaker. 07/20/2018. No acute events overnight. Patient states he is feeling tired otherwise he has not had any syncope, lightheadedness, or palpitations since admission. Patient is alert and oriented very pleasant and compliant with physical examination. He denies any shortness of breath, chills, nausea, vomiting, chest pain, diarrhea, constipation or any urinary symptoms. Reason For Visit: SYNCOPE Physical Exam Vital Signs: Temp Pulse Resp BP Pulse Ox 98.0 F 70 16 144/75 H 100 07/20/18 12:00 07/20/18 12:00 07/20/18 12:00 07/20/18 12:00 07/20/18 12:00 Intake & Output 07/19/18 07/20/18 07/21/18 06:59 06:59 06:59 Weight 63.1 kg General appearance: PRESENT: no acute distress, well-developed, well-nourished Head exam: PRESENT: atraumatic, normocephalic Eye exam: PRESENT: conjunctiva pink, EOMI, PERRLA. ABSENT: scleral icterus Ear exam: PRESENT: normal external ear exam Mouth exam: PRESENT: moist, tongue midline Neck exam: ABSENT: carotid bruit, JVD, lymphadenopathy, thyromegaly Respiratory exam: PRESENT: clear to auscultation emilia. ABSENT: rales, rhonchi, wheezes Cardiovascular exam: PRESENT: RRR. ABSENT: diastolic murmur, rubs, systolic murmur Pulses: PRESENT: normal dorsalis pedis pul Vascular exam: PRESENT: normal capillary refill GI/Abdominal exam: PRESENT: normal bowel sounds, soft. ABSENT: distended, guarding, mass, organolmegaly, rebound, tenderness Rectal exam: PRESENT: deferred Extremities exam: PRESENT: full ROM. ABSENT: calf tenderness, clubbing, pedal edema Neurological exam: PRESENT: alert, awake, oriented to person, oriented to place , oriented to time, oriented to situation, CN II-XII grossly intact. ABSENT: motor sensory deficit Psychiatric exam: PRESENT: appropriate affect, normal mood. ABSENT: homicidal ideation, suicidal ideation Skin exam: PRESENT: dry, intact, warm. ABSENT: cyanosis, rash Results Laboratory Results: 07/20/18 08:55 07/20/18 08:55 07/20/18 07/20/18 07/20/18 08:55 08:55 08:55 WBC 3.2 L RBC 3.66 L Hgb 11.3 L Hct 33.2 L MCV 91 MCH 30.8 MCHC 34.0 RDW 14.5 H Plt Count 144 L Seg Neutrophils % 64.0 Lymphocytes % 17.9 Monocytes % 16.0 H Eosinophils % 1.7 Basophils % 0.4 Absolute Neutrophils 2.0 Absolute Lymphocytes 0.6 Absolute Monocytes 0.5 Absolute Eosinophils 0.1 Absolute Basophils 0.0 Sodium 140.8 Potassium 4.2 Chloride 105 Carbon Dioxide 26 Anion Gap 10 BUN 15 Creatinine 0.98 Est GFR ( Amer) > 60 Est GFR (Non-Af Amer) > 60 Glucose 79 Calcium 8.9 Magnesium 1.6 07/20/18 07/20/18 02:07 08:55 Troponin I < 0.012 < 0.012 Impressions: Head CT 07/19/18 19:36 IMPRESSION: NORMAL BRAIN CT WITHOUT CONTRAST. EVIDENCE OF ACUTE STROKE: NO. Chest X-Ray 07/19/18 21:19 IMPRESSION: No acute chest finding. 2010 [employer]- All Rights Reserved Assessment & Plan - Diagnosis (1) Syncope Qualifiers: Syncope type: unspecified Qualified Code(s): R55 - Syncope and collapse Is this a current diagnosis for this admission?: Yes Plan: CT head negative. Cardiac enzymes negative x3. Cardiac enzymes negative x3. Pending 2D echo and AICD interrogation. Carotid Doppler negative for any hemodynamically significant stenosis. Continue telemetry antiplatelets, statins, beta-blockers, ARB. Monitor vitals. Continue PT ST OT. Patient cannot have an MRI of the brain due to pacemaker. (2) Paroxysmal atrial fibrillation Is this a current diagnosis for this admission?: Yes Plan: Rate controlled. Restart Xarelto. (3) CAD (coronary artery disease) Qualifiers: Coronary Disease-Associated Artery/Lesion type: unspecified vessel or lesion type [place] vs. transplanted heart: [place] heart Associated angina: without angina Qualified Code(s): I25.10 - Atherosclerotic heart disease of [place] coronary artery without angina pectoris Is this a current diagnosis for this admission?: Yes Plan: Extensive cardiac history. Patient has had CABG, PCI with 3 stents. Denies any active chest pain on this admission. Continue antiplatelets, beta blockers, ARB, Ranexa, nitroglycerin, and statins. Cardiology on board. (4) HTN (hypertension) Is this a current diagnosis for this admission?: Yes Plan: Normotensive euvolemic. Continue beta-blockers, calcium channel blockers, ARB. Monitor vitals and adjust medication if needed.
--- NOTE | 2018-07-20 14:08 | XCELERA REPORT ---
[address] [address] Transthoracic Echocardiogram Report Name: JULIANA BADILLO JR Age: 78 yrs Gender: Male : 1940 Patient Status: Inpatient Patient Location: [address] [place] [address] Study Date: 07/20/2018 10:21 AM Height: 67 in Weight: 139 lb BSA: 1.7 m2 Procedure: A two-dimensional transthoracic echocardiogram with color flow and Doppler was performed. The study was technically limited with all images being suboptimal in quality. Reason For Study: syncope History: SYNCOPE. Ordering Physician: BENNIE DUMONT Performed By: Shaunna Samayoa Interpretation Summary The left ventricle is normal in size. There is normal left ventricular wall thickness. Left ventricular systolic function is normal. LV EF is > than 60% Doppler measurements suggest impaired left ventricular relaxation, which is associated with grade I/IV or mild diastolic dysfunction The left ventricular wall motion is normal. The right ventricle is normal in size and function. The right atrium is normal. The left atrial size is normal. There is no vegetation seen on the mitral valve. There is no mitral valve stenosis. There is a mild amount of mitral regurgitation The aortic valve is trileaflet. The aortic valve opens well. There is no aortic valvular vegetation. There is no aortic valve stenosis There is no LVOT obstruction. There is aortic sclerosis without aortic stenosis. There is a mild amount of aortic regurgitation There is a pacemaker lead in the right ventricle. There is no tricuspid stenosis. There is a mild to moderate amount of tricuspid regurgitation There is mild pulmonary hypertension by echo RVSP is 35 to 40 mof Hg , with RA mean of 5 to 10. There is no pulmonic valvular stenosis. There is a mild to moderate amount of pulmonic regurgitation The aortic root is normal size. The inferior vena cava appeared normal and decreased > 50% with respiration (RAP 5-10 mmHg) There is no pericardial effusion. MMode/2D Measurements & Calculations RVDd: 1.5 cm LVIDd: 4.1 cm FS: 33.9 % Ao root diam: 3.0 cm IVSd: 0.90 cm LVIDs: 2.7 cm EDV(Teich): 73.4 ml Ao root area: 7.2 cm2 LVPWd: 0.87 cm ESV(Teich): 26.9 ml LA dimension: 2.9 cm EF(Teich): 63.3 % Doppler Measurements & Calculations MV E max shiv: MV P1/2t max shiv: Ao V2 max: AI max shiv: 73.5 cm/sec 74.5 cm/sec 110.4 cm/sec 407.2 cm/sec MV A max shiv: MV P1/2t: 67.0 msec Ao max PG: AI max P.0 cm/sec MVA(P1/2t): 3.3 cm2 4.9 mmHg 66.3 mmHg MV E/A: 0.93 MV dec slope: AI dec slope: 287.4 cm/sec2 325.7 cm/sec2 AI P1/2t: MV dec time: 414.9 msec 0.23 sec LV V1 max PG: PA V2 max: PI end-d shiv: TR max shiv: 3.0 mmHg 86.4 cm/sec 149.3 cm/sec 271.5 cm/sec LV V1 max: PA max P.0 mmHg TR max P.7 cm/sec 29.5 mmHg AV P1/2t-pr_phl: MV P1/2t-pr_phl: 414.9 msec 67.0 msec Left Ventricle The left ventricle is normal in size. There is normal left ventricular wall thickness. Left ventricular systolic function is normal. LV EF is > than 60%. Doppler measurements suggest impaired left ventricular relaxation, which is associated with grade I/IV or mild diastolic dysfunction. The left ventricular wall motion is normal. There is no thrombus. Right Ventricle The right ventricle is normal in size and function. There is a pacemaker lead in the right ventricle. Atria The right atrium is normal. The left atrial size is normal. Mitral Valve There is no evidence of mitral valve prolapse. There is no vegetation seen on the mitral valve. There is no mitral valve stenosis. There is a mild amount of mitral regurgitation. Aortic Valve The aortic valve is trileaflet. The aortic valve opens well. There is no aortic valvular vegetation. There is no aortic valve stenosis. There is no LVOT obstruction. There is aortic sclerosis without aortic stenosis. There is a mild amount of aortic regurgitation. Tricuspid Valve There is no tricuspid stenosis. There is a mild to moderate amount of tricuspid regurgitation. There is mild pulmonary hypertension by echo. RVSP is 35 to 40 mof Hg , with RA mean of 5 to 10. Pulmonic Valve There is no pulmonic valvular stenosis. There is a mild to moderate amount of pulmonic regurgitation. Great Vessels The aortic root is normal size. The inferior vena cava appeared normal and decreased > 50% with respiration (RAP 5-10 mmHg). Effusions There is no pericardial effusion. : BENNIE DUMONT > Ankita Lo
[2018-07-20] MEDS ORDERED: ATORVASTATIN CALCIUM 20 MG TABLET PO SCH (22:00)
--- NOTE | 2018-07-20 23:36 | PDOC CONSULTATION ---
Consultation-Blank Consultation: CARDIOLOGY CONSULTATION by Dr. Adams assessment on 07/20/2018. Patient seen at 4 PM on 07/20/2018. REASON FOR CONSULTATION: Patient with history of coronary artery disease, history of ventricular arrhythmias, history of AICD placement with an episode of syncope. Hence cardiology consultation. HISTORY OF PRESENT ILLNESS: Patient is a 78-year-old Afro-[place] male, with a known history of hypertension, coronary artery disease history of OH in the past , history of coronary artery bypass graft surgery, and history of coronary artery stents. And history of ventricular arrhythmia, with implantation of AICD , who states that he was talking to his and his friends and all of a sudden became very diaphoretic and felt a warm sensation in the chest and head and subsequently had a brief syncopal syncopal episode of a few seconds. When he got back to consciousness he was slightly confused. The patient denies any firing of his AICD. He denies any chest pain or discomfort. There is no palpitations or shortness of breath. The patient denies any PND orthopnea. He has not had anginal symptoms for a long time. The patient states that he had a similar episode in January 2018, and his workup in the emergency room was negative. Subsequently the next day he had the AICD check and it was found out that he had an episode of ventricular tachycardia treated by AICD shock, which the patient had not felt. The patient is awaiting interrogation of his [place] AICD. PAST MEDICAL HISTORY: History of hypertension present. History of coronary artery disease. History of myocardial infarction in the past, and history of coronary bypass graft surgery. In 2016 he was admitted here with chest pains he was transferred to the [facility] where he had stents placed. He also states that he had irregular heartbeat and has a defibrillator in place. He states that the last time he was aware of the AICD firing was a few months ago but in January 2018 when he had this similar episode the asked that he did go off and the patient did not feel it. He has no history of diabetes mellitus. There is no history of chronic kidney disease. There is no history of thyroid disease. There is no history of COPD asthma. There is no history of sleep apnea. PAST SURGICAL HISTORY: Coronary bypass graft surgery. AICD implantation. And history of prostatectomy for enlarged prostate. The patient denies cancer of the prostate. SOCIAL history: The patient does not smoke there is no history of EtOH abuse. FAMILY history: Is positive for his brother having heart attacks and congestive heart failure. ALLERGIES the patient is allergic to iodine morphine oxycodone and Percocet. DISPOSITION: The patient is a full code his is his surrogate healthcare decision maker. REVIEW OF SYMPTOMS: CONSTITUTIONAL: Denies any fever chills or rigors. Denies any history of fatigue or generalized weakness. HEAD: No history of head injury. No history of headaches or migraines. EYES: NO HISTORY OF MAA DIPLOPIA. NO HISTORY OF AMAUROSIS FUGAX. Ears: No history of tinnitus. No history of vertigo no history of hearing loss. NOSE: No history of nosebleeds. No history of nose nasal polyps. No history of hayfever. MOUTH: No history of altered taste sensation. NO ULCERS IN THE MOUTH. NO BLEEDING FROM THE GUMS. THROAT: No odynophagia or dysphagia. No recurrent sore throat. SKIN: No pruritus. No yellowish discoloration of the skin. No history of psoriasis. NECK: No history of neck pain. No history of goiter. No swelling in the neck. LUNGS: No history of asthma or COPD. No history of cough or sputum production. No history of wheezing. No history of pulmonary embolism. No history of sleep apnea. No wheezing. No history of symptoms of upper or lower respiratory tract infection. No history of pleuritic chest pain. No history of hemoptysis. CARDIAC: History of coronary artery disease. No recent anginal symptoms. Records awaited from . No history of congestive heart failure. History of ICD placement for ventricular arrhythmia. No history of PND orthopnea or leg edema. Syncopal episode as mentioned earlier this is a second such episode. ENDOCRINE: No history of diabetes mellitus or thyroid disease. No history of polydipsia polyuria. No history of heat or cold intolerance. MUSCULOSKELETAL: History of osteoarthritis present. No history of collagen vascular disease. RENAL: No history of symptoms a UTI. No history of chronic kidney disease. No history of hematuria pyuria dysuria. GI: No history of GERD. No history of peptic ulcer disease no history of GI bleed. No history of altered bowel movements. No history of fatty food intolerance. No history of jaundice. CRYPTOGRAPHIC CENTER SPECIALIST : No history of TIA or CVA. No history of headaches migraines or seizures. No gait imbalance. PSYCHIATRIC: No history of anxiety or depression. No suicidal ideation. No homicidal ideation. VASCULAR: He states he has stents in his femoral artery on the right side. But he has no calf or buttock claudication. No history of DVT. HEMATOLOGICAL: No history of bleeding diathesis. No history of blood dyscrasias. No history of clotting disorders. PHYSICAL EXAMINATION: The patient is well-built and well-nourished. At present in no acute distress. He is well-groomed. 07/20/18 15:39 Temperature 98.0 F Temperature Oral Source Pulse Rate 70 Respiratory 16 Rate Blood Pressure 131/73 H Blood Pressure 92 Mean BP Location Left Arm BP Position Supine O2 Sat by Pulse 97 Oximetry Oxygen Delivery Room Air Method Head: Head is atraumatic normocephalic. EYES: Equal round regular react to light accommodation. External ocular movements are normal. There is no palatal pallor. There is no scleral icterus. EARS: Tympanic membranes are intact. External auditory canals are clear. NOSE: There is no deviated nasal septum. There is no inflammation of the nasal mucous membrane. MOUTH: Mucous membranes of mouth are moist. Tongue is moist. THERE IS NO ULCERS IN THE MOUTH. THERE IS NO BLEEDING FROM THE GUMS. Throat: There is no redness of the oropharynx. There is no exudates of the throat. SKIN: There is no petechia or ecchymosis. There is no skin lesions or skin rashes. NECK: Supple. There is no JVD. Carotids are equal there is no bruits. There is no lymphadenopathy. There is no vital. The trachea is central. There is no accessory muscles of respiration in use. LUNGS: Is clear to auscultation percussion without any rhonchi rales or wheezing. There is no chest wall tenderness on palpation. HEART: S1-S2 is good there is no S3 gallop there is no skull gallop systolic murmur of mitral regurgitation and tricuspid regurgitation present. Is no rub. ABDOMEN: Soft. There is no hepatosplenomegaly. Bowel sounds are well heard. Has no tender areas masses. EXTREMITIES: Femorals are diminished there is no femoral bruits leg pulses diminished. There is no pedal edema. There is no DVT or cellulitis. There is no calf tenderness. There is no cyanosis or clubbing CRYPTOGRAPHIC CENTER SPECIALIST: The patient is conscious awake alert oriented x3 with no focal deficits. PSYCHIATRIC: Patient's judgment and insight are intact. His affect is normal. 07/19/18 07/19/18 07/20/18 20:06 20:06 02:07 WBC RBC Hgb Hct MCV MCH MCHC Plt Count Sodium Potassium Chloride Carbon Dioxide Anion Gap BUN Creatinine Est GFR ( Amer) Glucose Calcium Total Bilirubin 0.4 Direct Bilirubin 0.3 Neonat Total Bilirubin Not Reportable Neonat Direct Bilirubin Not Reportable Neonat Indirect Bili Not Reportable AST 28 ALT 29 Alkaline Phosphatase 137 H Creatine Kinase 153 CK-MB (CK-2) 1.28 Troponin I < 0.012 Total Protein 5.8 L Albumin 3.4 L 07/20/18 07/20/18 07/20/18 08:55 08:55 08:55 WBC 3.2 L RBC 3.66 L Hgb 11.3 L Hct 33.2 L MCV 91 MCH 30.8 MCHC 34.0 Plt Count 144 L Sodium 140.8 Potassium 4.2 Chloride 105 Carbon Dioxide 26 Anion Gap 10 BUN 15 Creatinine 0.98 Est GFR ( Amer) > 60 Glucose 79 Calcium 8.9 Total Bilirubin Direct Bilirubin Neonat Total Bilirubin Neonat Direct Bilirubin Neonat Indirect Bili AST ALT Alkaline Phosphatase Creatine Kinase CK-MB (CK-2) Troponin I < 0.012 Total Protein Albumin 07/20/18 14:03 WBC RBC Hgb Hct MCV MCH MCHC Plt Count Sodium Potassium Chloride Carbon Dioxide Anion Gap BUN Creatinine Est GFR ( Amer) Glucose Calcium Total Bilirubin Direct Bilirubin Neonat Total Bilirubin Neonat Direct Bilirubin Neonat Indirect Bili AST ALT Alkaline Phosphatase Creatine Kinase CK-MB (CK-2) Troponin I < 0.012 Total Protein Albumin CAROTID Doppler: Shows mild plaques. No significant hemodynamically significant lesions. CHEST x-ray is negative for any acute process. The patient's EKG shows atrial paced rhythm with ventricular capture. No acute changes. ECHOCARDIOGRAM: Shows normal left ventricular chamber size. Normal left ventricular wall thickness, and wall motion. Normal LV ejection fraction. There is mild to moderate tricuspid regurgitation. With mild pulmonary hypertension. There is aortic sclerosis without stenosis. There is mild aortic regurgitation. There is mild mitral regurgitation. There is no pericardial effusion. ED CAT scan of the head shows no acute process. IMPRESSION/RECOMMENDATION: 1. Syncope:? Etiology. Await interrogation of the AICD, to see if this indeed was the cause of the patient's syncope due to the patient's mental arrhythmia and the AICD firing the patient may not have noticed a firing of AICD as he was syncopal. If AICD interrogation is negative for AICD shock, then would recommend that the patient is a 30-day event monitor. And patient to follow-up with his pension fund manager Dr. Keita. 2. Coronary artery disease: History of old OH, history of coronary bypass graft surgery, and history of stent placements. The patient has no anginal symptoms. No acute ischemic changes on the EKG. And troponin I has been negative and is no evidence of an acute coronary event. 3. Hypertension: Seems to be fairly well controlled. 4. Hyperlipidemia: Continue statins. Medications reviewed management plans discussed with the hospitalist taking care of the medical decision making is of high complexity. Will follow with you. 60 minutes spent on this patient more than 50% of time spent. Echo findings were discussed with the patient and patient's EKG and lab findings were also discussed.
[2018-07-21] MEDS: LANSOPRAZOLE 30 MG TAB.RAP.DR PO SCH (05:23)
--- NOTE | 2018-07-21 08:54 | EKG REPORT ---
SEVERITY:- ABNORMAL ECG - SINUS RHYTHM PROBABLE LEFT ATRIAL ABNORMALITY ABNORMAL T, CONSIDER ISCHEMIA, ANTERIOR LEADS : Confirmed on behalf of: Leroy Peña 21-Jul-2018 08:52:53
--- NOTE | 2018-07-21 10:50 | PDOC PROGRESS REPORT ---
Subjective Progress Note for:: 07/21/18 Subjective:: JULIANA BADILLO JR is a 78 year old male past medical history of CAD, CABG, PCI with a stent placement, pacemaker, chronic A. fib on Xarelto, hypertension and GERD. Patient was admitted for an episode of syncope. Stated that he was talking with some friends, was trying to go upstairs he felt dizzy diaphoretic and fell backwards. Friend who is accompanying helped him and laid him on the floor, he did not sustain any head trauma. who was also present states that he was out for about 20 minutes and when he regained consciousness he was confused for about 10 minutes. Family at bedside check his pulse and he reported it as slow rate. EMS called called in ED patient was found to have blood pressure of 113/68 with a pulse of 73 and respiratory rate of 30. His pacemaker was placed a year ago and he had a similar episode in March of this year, his pacemaker was interrogated. Interrogation was a month ago. Assurance Manager Insurance is Dr. Keita. Negative orthostasis, CT head, troponins x3. CBC CMP within normal limits except for mild normocytic anemia. Cannot undergo an MRI of the head due to pacemaker. 07/20/2018. No acute events overnight. Patient states he is feeling tired otherwise he has not had any syncope, lightheadedness, or palpitations since admission. Patient is alert and oriented very pleasant and compliant with physical examination. He denies any shortness of breath, chills, nausea, vomiting, chest pain, diarrhea, constipation or any urinary symptoms. 07/21/2018. Patient had another mild episode of lightheadedness while washing his teeth in the morning. Patient did not fall or lose consciousness. Otherwise no acute events overnight. Patient is comfortably sitting in his chair very pleasant and cooperative with physical examination. Does not seem to be in any acute distress. Denies any palpitation, chest pain, shortness of breath, nausea, vomiting, diarrhea or any urinary symptoms. Reason For Visit: SYNCOPE Physical Exam Vital Signs: Temp Pulse Resp BP Pulse Ox 98.8 F 70 14 120/72 97 07/21/18 04:00 07/21/18 04:00 07/21/18 04:00 07/21/18 04:00 07/21/18 04:00 Intake & Output 07/20/18 07/21/18 07/22/18 06:59 06:59 06:59 Intake Total 2810 Balance 2810 Weight 63.1 kg 63.4 kg General appearance: PRESENT: no acute distress, well-developed, well-nourished Respiratory exam: PRESENT: clear to auscultation emilia. ABSENT: rales, rhonchi, wheezes Cardiovascular exam: PRESENT: irregular rhythm. ABSENT: diastolic murmur, rubs , systolic murmur Pulses: PRESENT: normal dorsalis pedis pul Neurological exam: PRESENT: alert, awake, oriented to person, oriented to place , oriented to time, oriented to situation, CN II-XII grossly intact. ABSENT: motor sensory deficit Results Laboratory Results: 07/20/18 08:55 07/20/18 08:55 07/20/18 07/20/18 07/20/18 02:07 08:55 14:03 Troponin I < 0.012 < 0.012 < 0.012 Impressions: Head CT 07/19/18 19:36 IMPRESSION: NORMAL BRAIN CT WITHOUT CONTRAST. EVIDENCE OF ACUTE STROKE: NO. Chest X-Ray 07/19/18 21:19 IMPRESSION: No acute chest finding. 2010 [employer]- All Rights Reserved Carotid Doppler Study 07/20/18 00:00 IMPRESSION: NO HEMODYNAMICALLY SIGNIFICANT STENOSIS. Assessment & Plan - Diagnosis (1) Syncope Qualifiers: Syncope type: unspecified Qualified Code(s): R55 - Syncope and collapse Is this a current diagnosis for this admission?: Yes Plan: CT head negative. Cardiac enzymes negative x3. 2D echo on 07/20/2018 read as left ejection fraction more than 60% with left ventricular normal size and mild diastolic dysfunction. Pending AICD interrogation. Carotid Doppler negative for any hemodynamically significant stenosis. Continue telemetry antiplatelets, statins, beta-blockers, ARB. Monitor vitals. Continue PT ST OT. Patient cannot have an MRI of the brain due to pacemaker. (2) Paroxysmal atrial fibrillation Is this a current diagnosis for this admission?: Yes Plan: Rate controlled. Restarted home meds. Continue telemetry (3) CAD (coronary artery disease) Qualifiers: Coronary Disease-Associated Artery/Lesion type: unspecified vessel or lesion type [place] vs. transplanted heart: [place] heart Associated angina: without angina Qualified Code(s): I25.10 - Atherosclerotic heart disease of [place] coronary artery without angina pectoris Is this a current diagnosis for this admission?: Yes Plan: Extensive CAD history. Patient has had CABG, PCI with 3 stents. Denies any active chest pain on this admission. Continue antiplatelets, beta blockers, ARB, Ranexa, nitroglycerin, and statins. Cardiology on board. (4) HTN (hypertension) Is this a current diagnosis for this admission?: Yes Plan: Normotensive euvolemic. Continue beta-blockers, calcium channel blockers, ARB. Monitor vitals and adjust medication if needed.
[2018-07-21] MEDS: DILTIAZEM HCL 120 MG CAP.SR.24H PO SCH (11:01)
[2018-07-21] MEDS: RANOLAZINE 500 MG TAB.SR.12H PO SCH (11:01)
[2018-07-21] MEDS: MULTIVITAMIN TABLET PO SCH (11:02)
[2018-07-21] MEDS: ASPIRIN 325 MG TABLET, ENT COATED PO SCH (11:02)
[2018-07-21] MEDS: CITALOPRAM HYDROBROMIDE 20 MG TABLET PO SCH (11:02)
[2018-07-21] MEDS: METOPROLOL TARTRATE 100 MG TABLET PO SCH (11:02)
[2018-07-21] MEDS: LOSARTAN POTASSIUM 25 MG TABLET PO SCH (11:02)
[2018-07-21] MEDS: COLCHICINE 0.6 MG TABLET PO SCH (11:03)
[2018-07-21] MEDS: MEGESTROL ACETATE SUSP 400 MG/10 ML UDCUP PO SCH (11:03)
--- NOTE | 2018-07-21 11:16 | Physician Advisory Note ---
Physician Advisor ProgressNote .: Pursuant to the plan for [facility], I have reviewed the medical record for this patient. Physician Advisor Statement: Pt w/signif cardiac hx, in w/syncope that occurred while ambulating, w/ significant period of LOC afterwards. Strong chance of recurrent VTach causing event. Had another milder episode presyncope in hospital since eval on day 2 - ?any rhythm change noted on monitor then? Please consider documentin. Dx #1 should be the Principal Dx (primary reason for bringing pt in), not a chronic dx. 2. Medical necessity: Medicare pt, has stayed 2 MNs so far in close monitoring /eval. If pt continued to need hospital level care on 2nd MN, rather than being ok for d/c to home with AICD interrogation & f/u of those results done as outpt, please make the reasons/continued acute concerns explicit in documentation so it's clear to payer's reviewers. Then appropriate for change to INpatient status. - [If was simply kept the 2nd MN due to convenience factors, or because we dragged our feet in getting AICD interrog ordered ["delay of care"], for example , then Inpatient would not be appropriate.] Thanks! CK
--- NOTE | 2018-07-21 14:11 | PDOC DISCHARGE SUMMARY ---
General - Admit/Disc Date/PCP Admission Date/Primary Care Provider: 07/19/18 21:31 NANI TEJEDA MD Discharge Date: 07/21/18 - Discharge Diagnosis (1) Syncope Is this a current diagnosis for this admission?: Yes (2) Paroxysmal atrial fibrillation Is this a current diagnosis for this admission?: Yes (3) CAD (coronary artery disease) Is this a current diagnosis for this admission?: Yes (4) HTN (hypertension) Is this a current diagnosis for this admission?: Yes - Additional Information Discharge Diet: As Tolerated Discharge Activity: Activity As Tolerated, Balance Activity w/Rest, No Driving Home Medications: Colchicine [Colchicine 0.6 mg Tablet] 0.6 mg PO BID 12/24/16 Fexofenadine HCl [Jacki] 180 mg PO DAILYP PRN 12/24/16 Nitroglycerin [Nitrostat 0.4 mg (1/150 Gr) Tabs 25/Bottle] 0.4 mg PO Q5MP PRN Tramadol HCl [Ultram 50 mg Tablet] 50 mg PO Q8HP PRN 12/24/16 Aspirin [Ecotrin 81 mg EC Tablet] 81 mg PO DAILY 07/20/18 Citalopram Hydrobromide [Celexa 20 mg Tablet] 20 mg PO DAILY 07/20/18 Diltiazem HCl [Cardizem Cd 120 mg Capsule] 120 mg PO DAILY 07/20/18 Metoprolol Succinate [Toprol Xl 25 mg Tab.sr] 25 mg PO DAILY 07/20/18 Multivitamin [Tab-A-Cheikh (Multiple Vitamin) Tablet] 1 tab PO DAILY 07/20/18 Omeprazole 40 mg PO DAILY 07/20/18 Propranolol HCl [Inderal 20 mg Tablet] 20 mg PO DAILY 07/20/18 Ranolazine [Ranexa 500 mg Tab.sr] 500 mg PO Q12 07/20/18 History of Present Illness History of Present Illness: JULIANA BADILLO JR is a 78 year old male past medical history of CAD, CABG, PCI with a stent placement, pacemaker, chronic A. fib on Xarelto, hypertension and GERD. Patient was admitted for an episode of syncope. Stated that he was talking with some friends, was trying to go upstairs he felt dizzy diaphoretic and fell backwards. Friend who is accompanying helped him and laid him on the floor, he did not sustain any head trauma. who was also present states that he was out for about 20 minutes and when he regained consciousness he was confused for about 10 minutes. Family at bedside check his pulse and he reported it as slow rate. EMS called called in ED patient was found to have blood pressure of 113/68 with a pulse of 73 and respiratory rate of 30. His pacemaker was placed a year ago and he had a similar episode in March of this year, his pacemaker was interrogated. Interrogation was a month ago. Aviation Electronic Warfare Operator is Dr. Keita. Negative orthostasis, CT head, troponins x3. CBC CMP within normal limits except for mild normocytic anemia. Cannot undergo an MRI of the head due to pacemaker. Hospital Course Hospital Course: (1) Syncope CT head negative. Cardiac enzymes negative x3. 2D echo on 07/20/2018 read as left ejection fraction more than 60% with left ventricular normal size and mild diastolic dysfunction. AICD was interrogated was reported normal as per cardiology. Carotid Doppler negative for any hemodynamically significant stenosis. Patient cannot have an MRI of the brain due to pacemaker. On 07/21/2018 patient reported another short episode of lightheadedness while brushing his teeth. He denied syncope, presyncope, chest pain, palpitation or shortness of breath when lightheadedness happened. AICD was interrogated by cardiology no abnormality was reported. As per cardiology recommendation Cozaar was DC'd and patient was discharged to follow- up with Dr. Lo as outpatient for further workup. His antiplatelets, statin, beta blockers were continued. Cozaar was stopped as per cardiology recommendation. He was strongly encouraged to return back to ED if he has any recurrence of lightheadedness, palpitation, shortness of breath, chest pain or any syncope or presyncope. He was also advised to get up slowly from sitting position or from bed. On the day of discharge patient is very pleasant and neurologically intact with normal physical examination. His family is around him and seem to be very supportive of him. He states that he is living with his and he does not need any home health. (2) Paroxysmal atrial fibrillation Rate controlled. Restarted home meds. Continue telemetry (3) CAD (coronary artery disease) Extensive CAD history. Patient has had CABG, PCI with 3 stents. Denies any active chest pain on this admission. Continue antiplatelets, beta blockers, ARB, Ranexa, nitroglycerin, and statins. Cardiology on board. (4) HTN (hypertension) Normotensive euvolemic. Continue beta-blockers, calcium channel blockers. ARB was stopped as per cardiology recommendation. Physical Exam Vital Signs: Temp Pulse Resp BP Pulse Ox 98.2 F 68 20 122/76 100 07/21/18 12:27 07/21/18 12:27 07/21/18 12:27 07/21/18 12:27 07/21/18 12:27 Intake & Output 07/20/18 07/21/18 07/22/18 06:59 06:59 06:59 Intake Total 2810 Balance 2810 Weight 63.1 kg 63.4 kg General appearance: PRESENT: no acute distress, well-developed, well-nourished Head exam: PRESENT: atraumatic, normocephalic Eye exam: PRESENT: conjunctiva pink, EOMI, PERRLA. ABSENT: scleral icterus Ear exam: PRESENT: normal external ear exam Mouth exam: PRESENT: moist, tongue midline Neck exam: ABSENT: carotid bruit, JVD, lymphadenopathy, thyromegaly Respiratory exam: PRESENT: clear to auscultation emilia. ABSENT: rales, rhonchi, wheezes Cardiovascular exam: PRESENT: irregular rhythm. ABSENT: diastolic murmur, rubs , systolic murmur Pulses: PRESENT: normal dorsalis pedis pul Vascular exam: PRESENT: normal capillary refill GI/Abdominal exam: PRESENT: normal bowel sounds, soft. ABSENT: distended, guarding, mass, organolmegaly, rebound, tenderness Rectal exam: PRESENT: deferred Extremities exam: PRESENT: full ROM. ABSENT: calf tenderness, clubbing, pedal edema Neurological exam: PRESENT: alert, awake, oriented to person, oriented to place , oriented to time, oriented to situation, CN II-XII grossly intact. ABSENT: motor sensory deficit Psychiatric exam: PRESENT: appropriate affect, normal mood. ABSENT: homicidal ideation, suicidal ideation Skin exam: PRESENT: dry, intact, warm. ABSENT: cyanosis, rash Results Laboratory Results: 07/20/18 08:55 07/20/18 08:55 07/20/18 07/20/18 07/20/18 02:07 08:55 14:03 Troponin I < 0.012 < 0.012 < 0.012 Impressions: Head CT 07/19/18 19:36 IMPRESSION: NORMAL BRAIN CT WITHOUT CONTRAST. EVIDENCE OF ACUTE STROKE: NO. Chest X-Ray 07/19/18 21:19 IMPRESSION: No acute chest finding. 2010 [employer]- All Rights Reserved Carotid Doppler Study 07/20/18 00:00 IMPRESSION: NO HEMODYNAMICALLY SIGNIFICANT STENOSIS. Qualifiers - * PATIENT BEING DISCHARGED WITH ANY OF THE FOLLOWING DIAGNOSIS: No
[2018-07-21 14:34] VITALS: BP 120/72
--- NOTE | 2018-07-21 22:05 | Progress Note ---
Provider Note Provider Note: CARDIOLOGY PROGRESS NOTE by Dr. Ankita Lo on 07/21/2018. SUBJECTIVE: The patient denies any chest pain or discomfort. Although he has not had any further syncopal episodes, this morning when he was at the wash basin brushing his teeth he felt diaphoretic dizzy and lightheaded, and again with no syncope. There is no arrhythmias seen on the monitor. He has no postural blood pressure changes suggestive of orthostatic hypotension. His AICD interrogation showed that there was no firing of integrated interrogation when he had the syncopal episode. The patient denies any focal weakness or blindness. There is no PND orthopnea or leg edema. He denies any chest pain or discomfort.. There are no arrhythmias seen on the monitor. There is no TIA or CVA symptoms. PHYSICAL EXAMINATION: The patient is well-built and well-nourished. He is in no acute distress. He is well-groomed Selected Entries 07/21/18 07/21/18 12:27 14:31 Temperature 98.2 F Temperature Oral Source Pulse Rate 68 Respiratory 20 Rate Blood Pressure 122/76 Blood Pressure 120/72 [Right] Blood Pressure 91 Mean BP Position Sitting Standing O2 Sat by Pulse 100 Oximetry Oxygen Delivery Room Air Method Head: Head is atraumatic normocephalic. EYES: Equal round regular react to light accommodation. External ocular movements are normal. There is no palatal pallor. There is no scleral icterus. EARS: Tympanic membranes are intact. External auditory canals are clear. NOSE: There is no deviated nasal septum. There is no inflammation of the nasal mucous membrane. MOUTH: Mucous membranes of mouth are moist. Tongue is moist. THERE IS NO ULCERS IN THE MOUTH. THERE IS NO BLEEDING FROM THE GUMS. Throat: There is no redness of the oropharynx. There is no exudates of the throat. SKIN: There is no petechia or ecchymosis. There is no skin lesions or skin rashes. NECK: Supple. There is no JVD. Carotids are equal there is no bruits. There is no lymphadenopathy. There is no vital. The trachea is central. There is no accessory muscles of respiration in use. LUNGS: Is clear to auscultation percussion without any rhonchi rales or wheezing. There is no chest wall tenderness on palpation. HEART: S1-S2 is good there is no S3 gallop there is no skull gallop systolic murmur of mitral regurgitation and tricuspid regurgitation present. Is no rub. ABDOMEN: Soft. There is no hepatosplenomegaly. Bowel sounds are well heard. Has no tender areas masses. EXTREMITIES: Femorals are diminished there is no femoral bruits leg pulses diminished. There is no pedal edema. There is no DVT or cellulitis. There is no calf tenderness. There is no cyanosis or clubbing SCALE BALANCER: The patient is conscious awake alert oriented x3 with no focal deficits. PSYCHIATRIC: Patient's judgment and insight are intact. His affect is normal. Note review of the patient's records from shows that in 2014 he had a cardiac catheterization. At that time the circumflex stent was patent. His FLORES to the LAD was patent. His reverse saphenous graft to the PDA was widely patent. His sequential saphenous vein graft to the ramus intermedius, and the first obtuse marginal branch was also widely patent. Further records records requested. IMPRESSION/RECOMMENDATION: 1. Syncope:? Etiology. Interrogation of the AICD showed that this was not the cause of the patient's syncope due to the patient on interrogation of the AICD showed no arrhythmia and there was no AICD firing when the patient was syncopal. In spite of this would get a 30-day event monitor as an outpatient. 2. Coronary artery disease: History of old [place], history of coronary bypass graft surgery, and history of stent placements. The patient has no anginal symptoms. No acute ischemic changes on the EKG. And troponin I has been negative and is no evidence of an acute coronary event. Get outpatient IV Lexiscan Cardiolite stress test. 3. Hypertension: Seems to be well controlled. The patient has normal LV ejection fraction, and he is not a diabetic. Hence we will stop the Cozaar to see if this has any part of the patient's symptomatology of orthostatic hypotension causing the patient's symptoms, in spite of the fact that the patient subsequently had no orthostatic changes. But when the patient was symptomatic with lightheadedness and dizziness and diaphoresis no orthostatic blood pressures were taken at that time. 4. Hyperlipidemia: Continue statins. Medications to be reviewed management plans discussed with the hospitalist taking care of the medical decision making is of high complexity. Will follow with you. 45 minutes spent on this patient more than 50% of time spent. Note after further discussion of the recommended 30-day event monitor and IV Araceli Cardiolite stress test as an outpatient with the patient and patient's daughter the patient and the daughter request that the patient follow-up with me in my office, since privileges at [facility]. I have given them my cell number. Will give him an appointment to see me as soon as possible as an outpatient. In the meantime the patient and the patient's daughter has been advised to call me on my cell if there should be any problems. Thanking you for taking for allowing me to participate in the care of this patient.
== END 2018-07-21 15:45 | disposition home or self-care (01) ==
LOC: ER 19:03 → EH 21:31 → 5 23:43
PROVIDERS: ADMIT Internal Medicine; ATTEND Internal Medicine
PROC: 4B02XTZ Measurement of Cardiac Defibrillator, External Approach (ICD-10-PCS; principal; 2018-07-19)
DX: R55 Syncope and collapse (principal); I48.0 Paroxysmal atrial fibrillation; I25.10 Atherosclerotic heart disease of native coronary artery without angina pectoris; I10 Essential (primary) hypertension; K21.9 Gastro-esophageal reflux disease without esophagitis; D64.9 Anemia, unspecified; I27.20 Pulmonary hypertension, unspecified; I08.3 Combined rheumatic disorders of mitral, aortic and tricuspid valves; E78.5 Hyperlipidemia, unspecified; R51 Headache; R42 Dizziness and giddiness; I25.2 Old myocardial infarction; Z79.82 Long term (current) use of aspirin; Z79.899 Other long term (current) drug therapy; Z95.5 Presence of coronary angioplasty implant and graft; Z79.02 Long term (current) use of antithrombotics/antiplatelets; Z45.02 Encounter for adjustment and management of automatic implantable cardiac defibrillator; Z95.1 Presence of aortocoronary bypass graft; Z82.49 Family history of ischemic heart disease and other diseases of the circulatory system; Z90.49 Acquired absence of other specified parts of digestive tract; Z96.659 Presence of unspecified artificial knee joint; Z87.891 Personal history of nicotine dependence
CPT/HCPCS: 93289; 93005 ×3; 99285; 36415 ×2; 82553; 82550; 83735; 85025 ×2; 85610; 85730; 80048; 80053; 84484 ×2; 83036; 93306; 93880; 71045; 70450; 93010 ×3; G0378 ×3; A9270 ×18; J7030

== ENCOUNTER 2018-11-26 12:57 | Emergency (ER) | payer MEDICARE, OTHER ==
--- NOTE | 2018-11-26 13:38 | ER Document Report ---
ED Medical Screen (RME) - General Chief Complaint: Dizziness Stated Complaint: DIZZY,LIGHTHEADED Time Seen by Provider: 11/26/18 13:38 Primary Care Provider: NANI TEJEDA MD [Primary Care Provider] - Follow up as needed Notes: Patient is a 78-year-old male with history of hypertension, A. fib and CAD that presents to the emergency department for chief complaint of lightheadedness and shortness of breath. Patient states that he has been having lightheadedness for about a week, has had it on and off before then as well, he states he took his blood pressure medications today he is noted to be widely hypotensive, he is currently on propranolol, metoprolol and Cardizem, he does report he is lost about 30 pounds over the past 6 months, without adjustments for his medications.. ROS: Other than noted above, the 12 point review of systems was reviewed with the patient and were negative, all pertinent findings are included in the HPI. PHYSICAL EXAMINATION: Vital signs reviewed. GENERAL: Elderly male, no acute distress HEAD: Atraumatic, normocephalic. EYES: Pupils equal round extraocular movements intact, conjunctiva are normal. ENT: Nares patent NECK: Normal range of motion CV: Heart regular rate and rhythm LUNGS: No respiratory distress Musculoskeletal: Normal range of motion NEUROLOGICAL: Normal speech PSYCH: Normal mood, normal affect. MDM: Patient seen and examined for rapid initial assessment. Vital signs reviewed. A comprehensive ED assessment and evaluation of the patient, analysis of test results and completion of the medical decision making process will be conducted by additional ED providers. *Note is created using voice recognition software and may contain spelling, syntax or grammatical errors. TRAVEL OUTSIDE OF THE [place] IN LAST 30 DAYS: No - Related Data Allergies/Adverse Reactions: iodine [Iodine] Allergy (Unknown, Verified 11/26/18 13:01) Itching morphine [Morphine] Allergy (Verified 11/26/18 13:01) itching oxycodone HCl [From Percocet] Allergy (Verified 11/26/18 13:01) Hallucinations Past Medical History - Past Medical History Cardiac Medical History: Reports: Hx Atrial Fibrillation, Hx Congestive Heart Failure, Hx Coronary Artery Disease, Hx Hypercholesterolemia, Hx Hypertension Denies: Hx Heart Attack Pulmonary Medical History: Denies: Hx Tuberculosis Neurological Medical History: Denies: Hx Seizures Renal/ Medical History: Reports: Hx Benign Prostatic Hyperplasia - Prostate surgery. Denies: Hx Peritoneal Dialysis GI Medical History: Reports: Hx Gastroesophageal Reflux Disease Musculoskeltal Medical History: Reports Hx Arthritis, Reports Hx Gout Psychiatric Medical History: Reports: Hx Depression Past Surgical History: Reports: Hx Appendectomy, Hx Cardiac Catheterization, Hx Cardiac Surgery - Pacemaker, Hx Cholecystectomy, Hx Coronary Artery Bypass Graft, Hx Internal Defibrillator, Hx Open Heart Surgery - CABG April 2015, Hx Orthopedic Surgery - Knee replacement - Immunizations Immunizations up to date: Yes Hx Diphtheria, Pertussis, Tetanus Vaccination: Yes History of Influenza Vaccine for 06/2017 - 10/2017 Season: Unknown Influenza Administration Date for 06/2017 - 10/2017 Season: 06/01/18 Physical Exam - Vital signs Vitals: Temp Pulse Resp BP Pulse Ox 97.6 F 87 16 95/62 L 99 11/26/18 13:34 11/26/18 13:34 11/26/18 13:34 11/26/18 13:34 11/26/18 13:34 Course - Vital Signs Vital signs: Temp Pulse Resp BP Pulse Ox 97.6 F 87 16 95/62 L 99 11/26/18 13:34 11/26/18 13:34 11/26/18 13:34 11/26/18 13:34 11/26/18 13:34 Doctor's Discharge - Discharge Referrals: NANI TEJEDA MD [Primary Care Provider] - Follow up as needed
--- NOTE | 2018-11-26 14:13 | RADIOLOGY REPORT (SQ) ---
EXAM DESCRIPTION: CHEST SINGLE VIEW COMPLETED DATE/TIME: 11/26/2018 2:01 pm REASON FOR STUDY: near syncope COMPARISON: 07/19/2018 EXAM PARAMETERS: NUMBER OF VIEWS: One view. TECHNIQUE: Single frontal radiographic view of the chest acquired. RADIATION DOSE: NA LIMITATIONS: None. FINDINGS: LUNGS AND PLEURA: Unchanged elevation of the left hemidiaphragm. MEDIASTINUM AND HILAR STRUCTURES: No masses. Contour normal. HEART AND VASCULAR STRUCTURES: Status post median sternotomy with left chest multi lead pacer defibri llator. BONES: No acute findings. HARDWARE: None in the chest. OTHER: No other significant finding. IMPRESSION: Unchanged elevation of the left hemidiaphragm. No acute abnormality of the lungs. TECHNICAL DOCUMENTATION: JOB ID: [id number] [employer]- All Rights Reserved Reading location - IP/workstation name: [email or web address]
[2018-11-26 14:39] LABS: ABSOLUTE EOSINOPHILS # (AUTO) 0.1 10^3/uL (0.0-0.6); ABSOLUTE LYMPHOCYTES (AUTO) 0.7 10^3/uL (0.5-4.7); ABSOLUTE MONOCYTES (AUTO) 0.3 10^3/uL (0.1-1.4); ABSOLUTE NEUT (AUTO) 1.9 10^3/uL (1.7-8.2); BASOPHILS % (AUTO) 0.4 % (0-2); EOSINOPHILS % (AUTO) 2.1 % (0-6); HEMATOCRIT 35.1 % (37.9-51.0); HEMOGLOBIN 12.1 g/dL (13.5-17.0); LYMPHOCYTES % (AUTO) 22.2 % (13-45); MEAN CORPUSCULAR HEMOGLOBIN 31.4 pg (27.0-33.4); MEAN CORPUSCULAR HGB CONC 34.5 g/dL (32.0-36.0); MEAN CORPUSCULAR VOLUME 91 fl (80-97); MONOCYTES % (AUTO) 9.5 % (3-13); PLATELET COUNT 149 10^3/uL (150-450); RED BLOOD COUNT 3.86 10^6/uL (4.35-5.55); RED CELL DISTRIBUTION WIDTH 14.3 % (11.5-14.0); SEGMENTED NEUTROPHILS % (AUTO) 65.8 % (42-78); TOTAL CELLS COUNTED % (AUTO) 100 %; WHITE BLOOD COUNT 2.9 10^3/uL (4.0-10.5)
[2018-11-26 15:02] LABS: ALANINE AMINOTRANSFERASE 112 U/L (21-72); ALBUMIN 3.8 g/dL (3.5-5.0); ALKALINE PHOSPHATASE 129 U/L (38-126); ANION GAP 5 (5-19); ASPARTATE AMINO TRANSFERASE 141 U/L (17-59); BILIRUBIN,DIRECT 0.3 mg/dL (0.0-0.4); BILIRUBIN,TOTAL 0.8 mg/dL (0.2-1.3); BLOOD UREA NITROGEN 18 mg/dL (7-20); CALCIUM 9.3 mg/dL (8.4-10.2); CARBON DIOXIDE 32 mmol/L (22-30); CHLORIDE 97 mmol/L (98-107); GLUCOSE 102 mg/dL (75-110); POTASSIUM 4.3 mmol/L (3.6-5.0); SODIUM 134.3 mmol/L (137-145); TOTAL PROTEIN 6.5 g/dL (6.3-8.2)
--- NOTE | 2018-11-26 16:07 | ER Document Report ---
ED General - General Chief Complaint: Dizziness Stated Complaint: DIZZY,LIGHTHEADED Time Seen by Provider: 11/26/18 13:38 Primary Care Provider: NANI TEJEDA MD [Primary Care Provider] - Follow up as needed TRAVEL OUTSIDE OF THE [place] IN LAST 30 DAYS: No - HPI Notes: Patient is a 78-year-old male that presents to the emergency department for chief complaint of near syncope. Patient reports feeling lightheaded for the last month. He does report history of syncope in the past and issues with his blood pressure. He states he is currently on propranolol, metoprolol, and Cardizem all of which she took today. He states that the lightheadedness seemed a little more severe today which is why he came to the ER. He denies any full syncope, chest pain or palpitations. Patient does state he has had a weight loss without trying over the last 6 months and reports a generalized loss of appetite. He denies recent illness fevers or chills. Patient states he does not drink much water because of his poor appetite. Past Medical History: CAD, A. fib, hypertension, hyperlipidemia Past Surgical History: CABG Social History: Denies tobacco, drug, and alcohol use Family History: Reviewed and noncontributory for presenting illness Allergies: Reviewed, see documented allergy list. REVIEW OF SYSTEMS: CONSTITUTIONAL : No fever No chills No diaphoresis No recent illness EENT: No vision changes No congestion No sore throat CARDIOVASCULAR: No chest pain No palpitations RESPIRATORY: No shortness of breath No cough No difficulty breathing GASTROINTESTINAL: No abdominal pain No nausea No vomiting No diarrhea GENITOURINARY: No dysuria No hematuria No difficulty urinating MUSCULOSKELETAL: No back pain No leg pain No arm pain SKIN: No rashes No lesions LYMPHATIC: No swollen, enlarged glands. NEUROLOGICAL: lightheadedness No headache No weakness No paresthesias PSYCHIATRIC: No anxiety No depression PHYSICAL EXAMINATION: Vital signs reviewed, nursing noted reviewed. GENERAL: Well-appearing, well-nourished and in no acute distress. HEAD: Atraumatic, normocephalic. EYES: Eyes appear normal, extraocular movements intact, sclera anicteric, conjunctiva are normal. ENT: nares patent, oropharynx clear without exudates. Moist mucous membranes. NECK: Normal range of motion, supple without lymphadenopathy LUNGS: Breath sounds clear to auscultation bilaterally and equal. No wheezes rales or rhonchi. HEART: Regular rate and rhythm without murmurs ABDOMEN: Soft, nontender, normoactive bowel sounds. No rebound, guarding, or rigidity. No masses appreciated. EXTREMITIES: Nontender, good range of motion. +2 pitting edema bilateral legs, symmetric. NEUROLOGICAL: No focal neurological deficits. Moves all extremities spontaneously Motor and sensory grossly intact on exam. PSYCH: Normal mood, normal affect. SKIN: Warm, Dry, normal turgor, no rashes or lesions noted on exposed skin - Related Data Allergies/Adverse Reactions: iodine [Iodine] Allergy (Unknown, Verified 11/26/18 13:01) Itching morphine [Morphine] Allergy (Verified 11/26/18 13:01) itching oxycodone HCl [From Percocet] Allergy (Verified 11/26/18 13:01) Hallucinations Past Medical History - Social History Smoking Status: Former Smoker Frequency of alcohol use: None Drug Abuse: None Family History: Reviewed & Not Pertinent, CAD - brother Patient has suicidal ideation: No Patient has homicidal ideation: No - Past Medical History Cardiac Medical History: Reports: Hx Atrial Fibrillation, Hx Congestive Heart Failure, Hx Coronary Artery Disease, Hx Hypercholesterolemia, Hx Hypertension Denies: Hx Heart Attack Pulmonary Medical History: Denies: Hx Tuberculosis Neurological Medical History: Denies: Hx Seizures Renal/ Medical History: Reports: Hx Benign Prostatic Hyperplasia - Prostate surgery. Denies: Hx Peritoneal Dialysis GI Medical History: Reports: Hx Gastroesophageal Reflux Disease Musculoskeletal Medical History: Reports Hx Arthritis, Reports Hx Gout Psychiatric Medical History: Reports: Hx Depression Past Surgical History: Reports: Hx Appendectomy, Hx Cardiac Catheterization, Hx Cardiac Surgery - Pacemaker, Hx Cholecystectomy, Hx Coronary Artery Bypass Vamshi t, Hx Internal Defibrillator, Hx Open Heart Surgery - CABG April 2015, Hx Orthopedic Surgery - Knee replacement - Immunizations Immunizations up to date: Yes Hx Diphtheria, Pertussis, Tetanus Vaccination: Yes Hx Pneumococcal Vaccination: 10/02/16 Physical Exam - Vital signs Vitals: Temp Pulse Resp BP Pulse Ox 97.6 F 87 16 95/62 L 99 11/26/18 13:34 11/26/18 13:34 11/26/18 13:34 11/26/18 13:34 11/26/18 13:34 Course - Re-evaluation Re-evalutation: 11/26/18 16:05 Vitals reviewed. Nursing notes reviewed. Lab work shows a low WBC count at 2.9 which chart review shows patient usually has a low WBC count. He has no signs of active infection or fevers. His chest x-ray is normal. Patient's troponin is also normal. I was able to do orthostatics which were negative. Patient was able to stand and reported feeling some lightheadedness but was able to ambulate without difficulty. I discussed his care with Dr. Campbell who he states is his archival studies professor. Recommend at this time to hold propranolol and to be seen in in the office tomorrow. Patient is hemodynamically stable currently for discharge. Laboratory 11/26/18 11/26/18 11/26/18 14:17 14:17 14:17 WBC 2.9 L RBC 3.86 L Hgb 12.1 L Hct 35.1 L MCV 91 MCH 31.4 MCHC 34.5 RDW 14.3 H Plt Count 149 L Seg Neutrophils % 65.8 Lymphocytes % 22.2 Monocytes % 9.5 Eosinophils % 2.1 Basophils % 0.4 Absolute Neutrophils 1.9 Absolute Lymphocytes 0.7 Absolute Monocytes 0.3 Absolute Eosinophils 0.1 Absolute Basophils 0.0 Sodium 134.3 L Potassium 4.3 Chloride 97 L Carbon Dioxide 32 H Anion Gap 5 BUN 18 Creatinine 1.01 Est GFR ( Amer) > 60 Est GFR (Non-Af Amer) > 60 Glucose 102 Calcium 9.3 Total Bilirubin 0.8 Direct Bilirubin 0.3 Neonat Total Bilirubin Not Reportable Neonat Direct Bilirubin Not Reportable Neonat Indirect Bili Not Reportable AST 141 H ALT 112 H Alkaline Phosphatase 129 H Troponin I < 0.012 Total Protein 6.5 Albumin 3.8 Chest X-Ray 11/26/18 13:44 IMPRESSION: Unchanged elevation of the left hemidiaphragm. No acute abnormality of the lungs. - Vital Signs Vital signs: Temp Pulse Resp BP Pulse Ox 97.6 F 87 16 95/62 L 99 11/26/18 13:34 11/26/18 13:34 11/26/18 13:34 11/26/18 13:34 11/26/18 13:34 - Laboratory Result Diagrams: 11/26/18 14:17 11/26/18 14:17 Laboratory results interpreted by me: 11/26/18 11/26/18 14:17 14:17 WBC 2.9 L RBC 3.86 L Hgb 12.1 L Hct 35.1 L RDW 14.3 H Plt Count 149 L Sodium 134.3 L Chloride 97 L Carbon Dioxide 32 H AST 141 H ALT 112 H Alkaline Phosphatase 129 H Discharge - Discharge Clinical Impression: Near syncope Hypotension Qualifiers: Hypotension type: unspecified hypotension type Qualified Code(s): I95.9 - Hypotension, unspecified Condition: Stable Disposition: HOME, SELF-CARE Instructions: Near Syncopal Episode ([facility]) Additional Instructions: Please return to the emergency department if you have any worsening, or concern of your symptoms. Please return to the emergency department if you develop chest pain, difficulty breathing, severe abdominal pain, or ongoing vomiting. Please follow-up with your primary care physician in 2-3 days and any other recommended physicians. If prescribed, take all medications as directed. If you have any questions or concerns do not hesitate to return the emergency department for evaluation. See Dr. Campbell in the office tomorrow to review your medications which are likely the cause of your lightheadedness Increase your daily intake of water Referrals: DEVONTE CAMPBELL MD [ACTIVE STAFF] - Follow up tomorrow NANI TEJEDA MD [Primary Care Provider] - Follow up in 3-5 days
[2018-11-26 16:16] VITALS: BP 108/77
--- NOTE | 2018-11-26 20:15 | EKG REPORT ---
SEVERITY:- ABNORMAL ECG - ATRIAL-SENSED VENTRICULAR-PACED RHYTHM : Confirmed by: Ankita Lo MD 26-Nov-2018 20:14:46
== END 2018-11-26 16:28 | disposition home or self-care (01) ==
LOC: ER 12:57
DX: I95.9 Hypotension, unspecified (principal); R42 Dizziness and giddiness; R63.0 Anorexia; Z79.899 Other long term (current) drug therapy; Z87.891 Personal history of nicotine dependence; I50.9 Heart failure, unspecified; I25.10 Atherosclerotic heart disease of native coronary artery without angina pectoris; I11.0 Hypertensive heart disease with heart failure
CPT/HCPCS: 36415; 71045; 80053; 84484; 85025; 93005; 93010; 99284

== ENCOUNTER 2018-11-28 14:30 | Emergency (ER) | payer MEDICARE ==
--- NOTE | 2018-11-28 15:46 | ER Document Report ---
ED Medical Screen (RME) - General Chief Complaint: Blood Pressure Problem Stated Complaint: BP ISSUES Time Seen by Provider: 11/28/18 15:31 Primary Care Provider: NANI TEJEDA MD [Primary Care Provider] - Follow up as needed Notes: 78-year-old male patient comes emerged from complaining of low blood pressure. He was seen here on 11/26/2018 where he is feeling dizzy lightheaded, body aches. At that time he had an unremarkable workup other than low blood pressure. He had his blood pressure medications stopped. He was unable to see his provider the next day because there was no one answering the phones in the office. He did leave him a message. He states he still has the same symptoms. His blood pressure is adequate today, however for someone who stopped all of his blood pressure medications, it would seem to be quite low. I have greeted and performed a rapid initial assessment of this patient. A comprehensive ED assessment and evaluation of the patient, analysis of test results and completion of the medical decision making process will be conducted by additional ED providers. TRAVEL OUTSIDE OF THE [place] IN LAST 30 DAYS: No - Related Data Allergies/Adverse Reactions: iodine [Iodine] Allergy (Unknown, Verified 11/28/18 15:23) Itching morphine [Morphine] Allergy (Verified 11/28/18 15:23) itching oxycodone HCl [From Percocet] Allergy (Verified 11/28/18 15:23) Hallucinations Past Medical History - Social History Frequency of alcohol use: None Drug Abuse: None - Past Medical History Cardiac Medical History: Reports: Hx Atrial Fibrillation, Hx Congestive Heart Failure, Hx Coronary Artery Disease, Hx Hypercholesterolemia, Hx Hypertension Denies: Hx Heart Attack Pulmonary Medical History: Denies: Hx Tuberculosis Neurological Medical History: Denies: Hx Seizures Renal/ Medical History: Reports: Hx Benign Prostatic Hyperplasia - Prostate surgery. Denies: Hx Peritoneal Dialysis GI Medical History: Reports: Hx Gastroesophageal Reflux Disease Musculoskeltal Medical History: Reports Hx Arthritis, Reports Hx Gout Psychiatric Medical History: Reports: Hx Depression Past Surgical History: Reports: Hx Appendectomy, Hx Cardiac Catheterization, Hx Cardiac Surgery - Pacemaker, Hx Cholecystectomy, Hx Coronary Artery Bypass Graft, Hx Internal Defibrillator, Hx Open Heart Surgery - CABG April 2015, Hx Orthopedic Surgery - Knee replacement - Immunizations Immunizations up to date: Yes Hx Diphtheria, Pertussis, Tetanus Vaccination: Yes History of Influenza Vaccine for 06/2017 - 10/2017 Season: Unknown Influenza Administration Date for 06/2017 - 10/2017 Season: 06/01/18 Physical Exam - Vital signs Vitals: Temp Pulse Resp BP Pulse Ox 97.4 F 70 16 129/64 H 99 11/28/18 14:35 11/28/18 14:35 11/28/18 14:35 11/28/18 14:35 11/28/18 14:35 Course - Vital Signs Vital signs: Temp Pulse Resp BP Pulse Ox 97.4 F 70 16 129/64 H 99 11/28/18 14:35 11/28/18 14:35 11/28/18 14:35 11/28/18 14:35 11/28/18 14:35 Doctor's Discharge - Discharge Referrals: NANI TEJEDA MD [Primary Care Provider] - Follow up as needed
[2018-11-28 16:21] LABS: ABSOLUTE EOSINOPHILS # (AUTO) 0.1 10^3/uL (0.0-0.6); ABSOLUTE LYMPHOCYTES (AUTO) 0.9 10^3/uL (0.5-4.7); ABSOLUTE MONOCYTES (AUTO) 0.3 10^3/uL (0.1-1.4); ABSOLUTE NEUT (AUTO) 2.9 10^3/uL (1.7-8.2); BASOPHILS % (AUTO) 0.4 % (0-2); EOSINOPHILS % (AUTO) 2.1 % (0-6); HEMATOCRIT 36.3 % (37.9-51.0); HEMOGLOBIN 12.3 g/dL (13.5-17.0); LYMPHOCYTES % (AUTO) 20.8 % (13-45); MEAN CORPUSCULAR HEMOGLOBIN 31.4 pg (27.0-33.4); MEAN CORPUSCULAR VOLUME 92 fl (80-97); MONOCYTES % (AUTO) 7.4 % (3-13); PLATELET COUNT 146 10^3/uL (150-450); RED BLOOD COUNT 3.93 10^6/uL (4.35-5.55); RED CELL DISTRIBUTION WIDTH 14.4 % (11.5-14.0); SEGMENTED NEUTROPHILS % (AUTO) 69.3 % (42-78); TOTAL CELLS COUNTED % (AUTO) 100 %; WHITE BLOOD COUNT 4.1 10^3/uL (4.0-10.5)
[2018-11-28 16:27] LABS: APPEARANCE,URINE SLIGHTLY-CLOUDY; BILIRUBIN,URINE SMALL (NEGATIVE); COLOR,URINE AMBER; GLUCOSE, URINE NEGATIVE (NEGATIVE); KETONES,URINE TRACE mg/dL (NEGATIVE); LEUKOCYTE ESTERASE,URINE TRACE (NEGATIVE); NITRITE,URINE NEGATIVE (NEGATIVE); PROTEIN,URINE 30 mg/dL (NEGATIVE); URINE SPECIFIC GRAVITY 1.028
[2018-11-28 16:40] LABS: ALANINE AMINOTRANSFERASE 100 U/L (21-72); ALBUMIN 3.9 g/dL (3.5-5.0); ALKALINE PHOSPHATASE 126 U/L (38-126); ANION GAP 6 (5-19); ASPARTATE AMINO TRANSFERASE 115 U/L (17-59); BILIRUBIN,DIRECT 0.3 mg/dL (0.0-0.4); BILIRUBIN,TOTAL 0.6 mg/dL (0.2-1.3); BLOOD UREA NITROGEN 20 mg/dL (7-20); CALCIUM 9.3 mg/dL (8.4-10.2); CARBON DIOXIDE 29 mmol/L (22-30); CHLORIDE 105 mmol/L (98-107); CREATINE KINASE 826 U/L (55-170); GLUCOSE 80 mg/dL (75-110); POTASSIUM 4.7 mmol/L (3.6-5.0); SODIUM 139.9 mmol/L (137-145); TOTAL PROTEIN 6.8 g/dL (6.3-8.2)
[2018-11-28 16:50] LABS: CREATINE KINASE MB 3.41 ng/mL (<4.55); TROPONIN I < 0.012 ng/mL
--- NOTE | 2018-11-28 17:17 | RADIOLOGY REPORT (SQ) ---
EXAM DESCRIPTION: CHEST SINGLE VIEW COMPLETED DATE/TIME: 11/28/2018 4:31 pm REASON FOR STUDY: Hypotension COMPARISON: 11/26/2018 and 10/25/2015. EXAM PARAMETERS: NUMBER OF VIEWS: One view. TECHNIQUE: Single frontal radiographic view of the chest acquired. RADIATION DOSE: NA LIMITATIONS: None. FINDINGS: LUNGS AND PLEURA: No opacities, masses or pneumothorax. No pleural effusion. MEDIASTINUM AND HILAR STRUCTURES: No masses. Contour normal. HEART AND VASCULAR STRUCTURES: Heart normal in size. Normal vasculature. BONES: No acute findings. HARDWARE: Sternotomy wires. No change in appearance of the defibrillator with a loop in one of the e lectrodes and distal end of the electrode located in the region of the lower right atrium. OTHER: No other significant finding. IMPRESSION: NO ACUTE RADIOGRAPHIC FINDING IN THE CHEST. NO CHANGE IN APPEARANCE OF THE DEFIBRILLATO R. TECHNICAL DOCUMENTATION: JOB ID: [id number] [email or web address]- All Rights Reserved Reading location - IP/workstation name: [email or web address]
[2018-11-28] MEDS ORDERED: NORMAL SALINE 1000 ML 1,000 ML IV ONE (17:55)
--- NOTE | 2018-11-28 18:55 | ER Document Report ---
ED Blood Pressure Problem - General Chief Complaint: Blood Pressure Problem Stated Complaint: BP ISSUES Time Seen by Provider: 11/28/18 15:31 Primary Care Provider: NANI TEJEDA MD [Primary Care Provider] - Follow up as needed Mode of Arrival: Wheelchair Information source: Patient, Relative Notes: Patient is an 78-year-old male who presents to the emergency department with chief complaint of "low blood pressure" and dizziness. Patient reports he was seen here 2 days ago for the same complaint. He states at that time he was told to stop all blood pressure medications and follow-up with his fingernail sculpturer. He states that he has been unable to get a hold of his fingernail sculpturer so he has not followed up. Patient reports he continues to feel dizzy, he describes this as when he stands up he feels like he may pass out. He denies any other symptoms to include nausea, vomiting, diarrhea, abdominal pain or fever. TRAVEL OUTSIDE OF THE [place] IN LAST 30 DAYS: No - Related Data Allergies/Adverse Reactions: iodine [Iodine] Allergy (Unknown, Verified 11/28/18 15:23) Itching morphine [Morphine] Allergy (Verified 11/28/18 15:23) itching oxycodone HCl [From Percocet] Allergy (Verified 11/28/18 15:23) Hallucinations Past Medical History - General Information source: Patient - Social History Smoking Status: Former Smoker Frequency of alcohol use: None Drug Abuse: None Family History: Reviewed & Not Pertinent, CAD - brother Patient has suicidal ideation: No Patient has homicidal ideation: No - Past Medical History Cardiac Medical History: Reports: Hx Atrial Fibrillation, Hx Congestive Heart Failure, Hx Coronary Artery Disease, Hx Hypercholesterolemia, Hx Hypertension Denies: Hx Heart Attack Pulmonary Medical History: Denies: Hx Tuberculosis Neurological Medical History: Denies: Hx Seizures Renal/ Medical History: Reports: Hx Benign Prostatic Hyperplasia - Prostate surgery. Denies: Hx Peritoneal Dialysis GI Medical History: Reports: Hx Gastroesophageal Reflux Disease Musculoskeletal Medical History: Reports Hx Arthritis, Reports Hx Gout Psychiatric Medical History: Reports: Hx Depression Past Surgical History: Reports: Hx Appendectomy, Hx Cardiac Catheterization, Hx Cardiac Surgery - Pacemaker, Hx Cholecystectomy, Hx Coronary Artery Bypass Graft, Hx Internal Defibrillator, Hx Open Heart Surgery - CABG April 2015, Hx Orthopedic Surgery - Knee replacement - Immunizations Immunizations up to date: Yes Hx Diphtheria, Pertussis, Tetanus Vaccination: Yes Hx Pneumococcal Vaccination: 10/02/16 Review of Systems - Review of Systems Constitutional: Other - Dizziness. denies: Chills, Fever EENT: No symptoms reported Cardiovascular: No symptoms reported. denies: Chest pain, Palpitations Respiratory: No symptoms reported. denies: Short of breath Gastrointestinal: No symptoms reported. denies: Diarrhea, Nausea, Vomiting Genitourinary: No symptoms reported. denies: Dysuria, Frequency, Flank pain Male Genitourinary: No symptoms reported Musculoskeletal: No symptoms reported. denies: Joint pain, Muscle pain Skin: No symptoms reported Hematologic/Lymphatic: No symptoms reported Neurological/Psychological: No symptoms reported Physical Exam - Vital signs Vitals: Temp Pulse Resp BP Pulse Ox 97.4 F 70 16 129/64 H 99 11/28/18 14:35 11/28/18 14:35 11/28/18 14:35 11/28/18 14:35 11/28/18 14:35 - Notes Notes: PHYSICAL EXAMINATION: GENERAL: Well-appearing, well-nourished and in no acute distress. HEAD: Atraumatic, normocephalic. EYES: Pupils equal round and reactive to light, extraocular movements intact, sclera anicteric, conjunctiva are normal. ENT: Nares patent, oropharynx clear without exudates. Moist mucous membranes. NECK: Normal range of motion, supple without lymphadenopathy LUNGS: Breath sounds clear to auscultation bilaterally and equal. No wheezes rales or rhonchi. HEART: Regular rate and rhythm without murmurs ABDOMEN: Soft, nontender, nondistended abdomen. No guarding, no rebound. No masses appreciated. Musculoskeletal: Normal range of motion, no pitting or edema. No cyanosis. NEUROLOGICAL: Cranial nerves grossly intact. Normal speech, normal gait. Normal sensory, motor exams PSYCH: Normal mood, normal affect. SKIN: Warm, Dry, normal turgor, no rashes or lesions noted. Course - Re-evaluation Re-evalutation: Patient is alert, oriented and nontoxic in appearance. His vital signs are within normal limits. Patient's physical examination is unremarkable. Patient was initially seen by provider in triage who initiated his workup. Laboratory results are unremarkable other than an elevated CK of 826. EKG was obtained, shows a sinus rhythm, rate of 69, QTc 466, normal axis with no ST segment elevations or depressions. This is unchanged from previous EKG on record. Chest x-ray is unremarkable and shows no evidence of cardiomegaly. 11/28/18 18:[address] Peña, patient's fingernail sculpturer. Discussed all lab findings as well as vital signs. He states that patient was supposed to follow-up with him on Friday and did not. He would like to see patient in his office on Friday. 11/28/18 19:00 Patient received 500 cc fluid bolus, all lab results were discussed with patient and spouse at bedside. Patient reports he is feeling somewhat improved. His v ital signs have been stable during his ED stay today. He will be discharged home with instructions to follow-up in the office of Dr. Peña on Friday, he does not need an appointment, Dr. Peña would like him to walk in. Patient and spouse verbalized understanding and agreement with plan. ED return precautions were discussed and are outlined in discharge instructions. - Vital Signs Vital signs: Temp Pulse Resp BP Pulse Ox 97.4 F 70 16 131/72 H 99 11/28/18 14:35 11/28/18 17:51 11/28/18 14:35 11/28/18 17:51 11/28/18 14:35 - Laboratory Result Diagrams: 11/28/18 15:50 11/28/18 15:50 Laboratory results interpreted by me: 11/28/18 11/28/18 11/28/18 15:50 15:50 15:50 RBC 3.93 L Hgb 12.3 L Hct 36.3 L RDW 14.4 H Plt Count 146 L AST 115 H ALT 100 H Creatine Kinase 826 H Urine Protein 30 H Urine Ketones TRACE H Urine Bilirubin SMALL H Urine Urobilinogen 4.0 H Ur Leukocyte Esterase TRACE H Discharge - Discharge Clinical Impression: Dizziness Condition: Stable Disposition: HOME, SELF-CARE Additional Instructions: Your work-up today was reassuring. I called and spoke with your fingernail sculpturer, Dr. Peña. He would like to see you on Friday. He said you do not need to call to make an appointment, he states that you should just show up to his office and let the front desk lead staff know that you are in the emergency department and that Dr. Peña stated he wanted to see you on Friday. Return to the emergency department for any new or worsening symptoms to include any episode of passing out or syncope. Referrals: NANI TEJEDA MD [Primary Care Provider] - Follow up as needed
--- NOTE | 2018-11-28 19:23 | EKG REPORT ---
SEVERITY:- DEFECTIVE ECG - SINUS RHYTHM WITH BASELINE ARTIFACT BORDERLINE T ABNORMALITIES, ANTERIOR LEADS : Confirmed by: Ankita Lo MD 28-Nov-2018 19:23:14
[2018-11-28 19:51] VITALS: BP 130/71
== END 2018-11-28 19:52 | disposition home or self-care (01) ==
LOC: ER 14:30
DX: R42 Dizziness and giddiness (principal); I95.9 Hypotension, unspecified; I48.91 Unspecified atrial fibrillation; I50.9 Heart failure, unspecified; Z88.6 Allergy status to analgesic agent; Z95.0 Presence of cardiac pacemaker; Z95.1 Presence of aortocoronary bypass graft; Z90.49 Acquired absence of other specified parts of digestive tract
CPT/HCPCS: 93005; 99285; 96360; 36415; 82553; 82550; 85025; 80053; 81001; 84484; 71045; 93010; J7030

== ENCOUNTER 2019-01-01 17:15 | Emergency (ER) | payer MEDICARE, OTHER ==
[2019-01-01 17:40] VITALS: BP 130/60
[2019-01-01] MEDS ORDERED: DIPH/PERTUSS(ACELL)/TETANUS VAC/PF 0.5 ML SYR (>=10YO) IM ONE (19:20)
[2019-01-01] MEDS ORDERED: ACETAMINOPHEN 325 MG TABLET PO ONE (19:20)
--- NOTE | 2019-01-01 19:21 | ER Document Report ---
HPI - HPI Patient complains to provider of: Finger laceration Time Seen by Provider: 01/01/19 19:20 Onset: This afternoon Onset/Duration: Sudden Quality of pain: Achy Pain Level: 3 Context: Patient was using a hand leather trimmer and accidentally cut his left fourth finger. Patient states that it initially bled quite a bit and he is uncertain when his last tetanus immunization was. Associated Symptoms: Other - Finger laceration Exacerbated by: Movement Relieved by: Denies Similar symptoms previously: No Recently seen / treated by doctor: No - ROS ROS below otherwise negative: Yes Systems Reviewed and Negative: Yes All other systems reviewed and negative - NEURO Neurology: DENIES: Weakness - GASTROINTESTINAL Gastrointestinal: DENIES: Nausea - MUSCULOSKELETAL Musculoskeletal: REPORTS: Extremity pain - DERM Skin Color: Normal Skin Problems: Laceration Past Medical History - General Information source: Patient - Social History Smoking Status: Former Smoker Frequency of alcohol use: None Family History: Reviewed & Not Pertinent, CAD - brother Patient has suicidal ideation: No Patient has homicidal ideation: No - Past Medical History Cardiac Medical History: Reports: Hx Atrial Fibrillation, Hx Congestive Heart Failure, Hx Coronary Artery Disease, Hx Hypercholesterolemia, Hx Hypertension Denies: Hx Heart Attack Pulmonary Medical History: Denies: Hx Tuberculosis Neurological Medical History: Denies: Hx Seizures Renal/ Medical History: Reports: Hx Benign Prostatic Hyperplasia - Prostate surgery. Denies: Hx Peritoneal Dialysis GI Medical History: Reports: Hx Gastroesophageal Reflux Disease Musculoskeletal Medical History: Reports Hx Arthritis, Reports Hx Gout Psychiatric Medical History: Reports: Hx Depression Past Surgical History: Reports: Hx Appendectomy, Hx Cardiac Catheterization, Hx Cardiac Surgery - Pacemaker, Hx Cholecystectomy, Hx Coronary Artery Bypass Graft, Hx Internal Defibrillator, Hx Open Heart Surgery - CABG April 2015, Hx Orthopedic Surgery - Knee replacement - Immunizations Immunizations up to date: Yes Hx Diphtheria, Pertussis, Tetanus Vaccination: Yes Hx Pneumococcal Vaccination: 10/02/16 Vertical Provider Document - CONSTITUTIONAL Agree With Documented VS: Yes Exam Limitations: No Limitations General Appearance: WD/WN, No Apparent Distress - INFECTION CONTROL TRAVEL OUTSIDE OF THE [place] IN LAST 30 DAYS: No - HEENT HEENT: Atraumatic, Normocephalic - NECK Neck: Normal Inspection - RESPIRATORY Respiratory: No Respiratory Distress - CARDIOVASCULAR Pulses: Normal: Radial - MUSCULOSKELETAL/EXTREMETIES Musculoskeletal/Extremeties: RAMOS ROSA - NEURO Level of Consciousness: Awake, Alert, Appropriate Motor/Sensory: No Motor Deficit - DERM Integumentary: Warm, Dry, Laceration - Superficial laceration to left fourth fingertip, no nail involvement. No tendon deficit. Course - Vital Signs Vital signs: Temp Pulse Resp BP Pulse Ox 98 F 78 16 130/60 H 97 01/01/19 17:39 01/01/19 17:39 01/01/19 17:39 01/01/19 17:39 01/01/19 17:39 - Diagnostic Test Radiology reviewed: Image reviewed, Reports reviewed Procedures - Immobilization Left Finger 4th digit Pre-Proc Neuro Vasc Exam: Normal Immobilizer type: Finger splint (Static) Performed by: PCT Post-Proc Neuro Vasc Exam: Normal Alignment checked and good: Yes Discharge - Discharge Clinical Impression: Finger laceration Qualifiers: Encounter type: initial encounter Finger: ring finger Damage to nail status: without damage Foreign body presence: without foreign body Laterality: left Qualified Code(s): S61.215A - Laceration without foreign body of left ring finger without damage to nail, initial encounter Condition: Stable Disposition: HOME, SELF-CARE Instructions: Non-Sutured Laceration ([facility]), Prophylactic Antibiotic ([facility]), Temporary Splint ([facility]), Tetanus Immunization Given ([facility]) Additional Instructions: Return immediately for any new or worsening symptoms Followup with your primary care provider, call tomorrow to make a followup appointment Keep wound covered as it continues to heal, wear splint for the next 4 to 5 days and then remove. Prescriptions: Cephalexin Monohydrate [Keflex 500 mg Capsule] 500 mg PO BID 5 Days capsule Referrals: NANI TEJEDA MD [Primary Care Provider] - Follow up as needed MITA KELSEY DO [ACTIVE STAFF] - Follow up as needed
--- NOTE | 2019-01-01 20:11 | RADIOLOGY REPORT (SQ) ---
EXAM DESCRIPTION: XR FINGERS COMPLETED DATE/TME: 01/01/2019 19:20 CLINICAL HISTORY: finger hit by Maynor jones 4th finger COMPARISON: None FINDINGS: Three x-ray views of the left fourth digit, including a frontal view of the hand, were submitted. There is narrowing of the interphalangeal joints. Osteophytic formation is noted at the distal interphalangeal joint of the fourth digit. Degenerative changes also noted at the first carpometacarpal joint. There is no acute fracture or dislocation. There is no radiopaque foreign body material. IMPRESSION: No acute fracture or dislocation. Degenerative changes.
[2019-01-01] MEDS ORDERED: CEPHALEXIN 500 MG CAPSULE PO ONE (20:41)
== END 2019-01-01 21:00 | disposition home or self-care (01) ==
LOC: ER 17:15
DX: S61.215A Laceration without foreign body of left ring finger without damage to nail, initial encounter (principal); W29.3XXA Contact with powered garden and outdoor hand tools and machinery, initial encounter; I48.91 Unspecified atrial fibrillation; I50.9 Heart failure, unspecified; I11.0 Hypertensive heart disease with heart failure; E78.00 Pure hypercholesterolemia, unspecified; Z23 Encounter for immunization; Z95.0 Presence of cardiac pacemaker; Z90.49 Acquired absence of other specified parts of digestive tract; Z95.1 Presence of aortocoronary bypass graft
CPT/HCPCS: 99283; 90471; 73140; 90715; A9270 ×2

== ENCOUNTER 2019-05-11 13:41 | Emergency (ER) | payer MEDICARE, OTHER ==
[2019-05-11] MEDS ORDERED: ASPIRIN 81 MG TABLET, CHEWABLE PO ONE (14:41)
--- NOTE | 2019-05-11 14:43 | ER Document Report ---
ED Medical Screen (RME) - General Chief Complaint: Dizziness Stated Complaint: DIZZINESS,HEADACHE Time Seen by Provider: 05/11/19 14:37 Primary Care Provider: NANI TEJEDA MD [Primary Care Provider] - Follow up as needed Mode of Arrival: Ambulatory Information source: Patient Notes: Patient is a delightful 78-year-old male presenting to the emergency department chief complaint of dizziness, chest pain and shortness of breath. Patient reports dizziness has been going on for several days. He denies falling but states he has come close to it. He also reports intermittent chest pain with shortness of breath. He denies any unilateral weakness. He reports he has had this happen before and was admitted but he is not sure what the cause was at that time. Exam: Lung sounds clear and equal bilaterally. Steel Turner strength is equal bilaterally. No focal neurological deficits noted. I have greeted and performed a rapid initial assessment of this patient. A comp rehensive ED assessment and evaluation of the patient, analysis of test results and completion of the medical decision making process will be conducted by additional ED providers. I have specifically instructed the patient or family members with the patient to immediately return to any nursing staff should anything change in the patient's condition or with their chief complaint. This medical record was dictated with voice recognizing software. There may be grammatical, syntax errors that are unintended. TRAVEL OUTSIDE OF THE [place] IN LAST 30 DAYS: No - Related Data Allergies/Adverse Reactions: iodine [Iodine] Allergy (Unknown, Verified 05/11/19 13:42) Itching morphine [Morphine] Allergy (Verified 05/11/19 13:42) itching oxycodone HCl [From Percocet] Allergy (Verified 05/11/19 13:42) Hallucinations Past Medical History - Past Medical History Cardiac Medical History: Reports: Hx Atrial Fibrillation, Hx Congestive Heart Failure, Hx Coronary Artery Disease, Hx Hypercholesterolemia, Hx Hypertension Denies: Hx Heart Attack Pulmonary Medical History: Denies: Hx Tuberculosis Neurological Medical History: Denies: Hx Seizures Renal/ Medical History: Reports: Hx Benign Prostatic Hyperplasia - Prostate surgery. Denies: Hx Peritoneal Dialysis GI Medical History: Reports: Hx Gastroesophageal Reflux Disease Musculoskeltal Medical History: Reports Hx Arthritis, Reports Hx Gout Psychiatric Medical History: Reports: Hx Depression Past Surgical History: Reports: Hx Appendectomy, Hx Cardiac Catheterization, Hx Cardiac Surgery - Pacemaker, Hx Cholecystectomy, Hx Coronary Artery Bypass Graft, Hx Internal Defibrillator, Hx Open Heart Surgery - CABG April 2015, Hx Orthopedic Surgery - Knee replacement - Immunizations Immunizations up to date: Yes Hx Diphtheria, Pertussis, Tetanus Vaccination: Yes History of Influenza Vaccine for 06/2017 - 10/2017 Season: Unknown Influenza Administration Date for 06/2017 - 10/2017 Season: 06/01/18 Physical Exam - Vital signs Vitals: Temp Pulse Resp BP Pulse Ox 97.5 F 89 16 128/80 H 100 05/11/19 13:47 05/11/19 13:47 05/11/19 13:47 05/11/19 13:47 05/11/19 13:47 Course - Vital Signs Vital signs: Temp Pulse Resp BP Pulse Ox 97.5 F 89 16 128/80 H 100 05/11/19 13:47 05/11/19 13:47 05/11/19 13:47 05/11/19 13:47 05/11/19 13:47 Doctor's Discharge - Discharge Referrals: NANI TEJEDA MD [Primary Care Provider] - Follow up as needed
[2019-05-11 15:44] LABS: ABSOLUTE EOSINOPHILS # (AUTO) 0.1 10^3/uL (0.0-0.6); ABSOLUTE LYMPHOCYTES (AUTO) 0.6 10^3/uL (0.5-4.7); ABSOLUTE MONOCYTES (AUTO) 0.3 10^3/uL (0.1-1.4); ABSOLUTE NEUT (AUTO) 2.3 10^3/uL (1.7-8.2); BASOPHILS % (AUTO) 0.5 % (0-2); EOSINOPHILS % (AUTO) 2.2 % (0-6); HEMATOCRIT 38.5 % (37.9-51.0); HEMOGLOBIN 12.9 g/dL (13.5-17.0); LYMPHOCYTES % (AUTO) 18.9 % (13-45); MEAN CORPUSCULAR HEMOGLOBIN 30.3 pg (27.0-33.4); MEAN CORPUSCULAR HGB CONC 33.4 g/dL (32.0-36.0); MEAN CORPUSCULAR VOLUME 91 fl (80-97); MONOCYTES % (AUTO) 8.7 % (3-13); PLATELET COUNT 172 10^3/uL (150-450); RED BLOOD COUNT 4.25 10^6/uL (4.35-5.55); RED CELL DISTRIBUTION WIDTH 15.1 % (11.5-14.0); SEGMENTED NEUTROPHILS % (AUTO) 69.7 % (42-78); TOTAL CELLS COUNTED % (AUTO) 100 %; WHITE BLOOD COUNT 3.3 10^3/uL (4.0-10.5)
--- NOTE | 2019-05-11 15:48 | RADIOLOGY REPORT (SQ) ---
EXAM DESCRIPTION: CT HEAD WITHOUT COMPLETED DATE/TIME: 05/11/2019 3:37 pm REASON FOR STUDY: headache, dizziness COMPARISON: 07/19/2018 TECHNIQUE: Axial images acquired through the brain without intravenous contrast. Images reviewed wi th bone, brain and subdural windows. Additional sagittal and coronal reconstructions were generated. Images stored on PACS. All CT scanners at this facility use dose modulation, iterative reconstruction, and/or weight based d osing when appropriate to reduce radiation dose to as low as reasonably achievable (ALARA). [facility]: Dose Right [facility]: CareDose [facility]: Dose Right [facility]: Teradose 4D [facility]: TR Fleet Limited RADIATION DOSE: CT Rad equipment meets quality standard of care and radiation dose reduction techniq ues were employed. CTDIvol: 53.2 mGy. DLP: 991 mGy-cm. mGy. LIMITATIONS: None. FINDINGS: VENTRICLES: Prominent but stable in size and configuration. CEREBRUM: No masses. No hemorrhage. No midline shift. Areas of low density in the white matter mos t likely due to chronic micro-vascular ischemic change. No evidence for acute infarction. CEREBELLUM: No masses. No hemorrhage. No alteration of density. No evidence for acute infarction. EXTRAAXIAL SPACES: Mild age-related involutional change. No fluid collections. No masses. ORBITS AND GLOBE: No intra- or extraconal masses. Normal contour of globe without masses. CALVARIUM: No fracture. PARANASAL SINUSES: No fluid or mucosal thickening. SOFT TISSUES: No mass or hematoma. OTHER: No other significant finding. IMPRESSION: MILD CHRONIC CHANGES OF ATROPHY AND MICROVASCULAR ISCHEMIA. NO ACUTE PROCESS. EVIDENCE OF ACUTE STROKE: NO. TECHNICAL DOCUMENTATION: JOB ID: [id number] Quality ID # [id number]: Final reports with documentation of one or more dose reduction techniques (e.g., Au tomated exposure control, adjustment of the mA and/or kV according to patient size, use of iterative reconstruction technique) 2010 [employer]- All Rights Reserved Reading location - IP/workstation name: [email or web address]
[2019-05-11 16:02] LABS: ALBUMIN 4.5 g/dL (3.5-5.0); ALKALINE PHOSPHATASE 141 U/L (38-126); ANION GAP 10 (5-19); ASPARTATE AMINO TRANSFERASE 38 U/L (17-59); BILIRUBIN,DIRECT 0.3 mg/dL (0.0-0.4); BILIRUBIN,TOTAL 0.7 mg/dL (0.2-1.3); BLOOD UREA NITROGEN 18 mg/dL (7-20); CALCIUM 9.6 mg/dL (8.4-10.2); CARBON DIOXIDE 25 mmol/L (22-30); CHLORIDE 101 mmol/L (98-107); GLUCOSE 74 mg/dL (75-110); POTASSIUM 4.9 mmol/L (3.6-5.0); TOTAL PROTEIN 7.6 g/dL (6.3-8.2)
--- NOTE | 2019-05-11 16:22 | RADIOLOGY REPORT (SQ) ---
EXAM DESCRIPTION: CHEST 2 VIEWS COMPLETED DATE/TIME: 05/11/2019 4:06 pm REASON FOR STUDY: chest pain/shirtness of breath COMPARISON: 11/28/2018 EXAM PARAMETERS: NUMBER OF VIEWS: two views TECHNIQUE: Digital Frontal and Lateral radiographic views of the chest acquired. RADIATION DOSE: NA LIMITATIONS: none FINDINGS: LUNGS AND PLEURA: There is hyperexpansion. No consolidation or effusions. No pneumothora x. MEDIASTINUM AND HILAR STRUCTURES: No masses or contour abnormalities. HEART AND VASCULAR STRUCTURES: Heart normal size. No evidence for failure. BONES: No acute findings. HARDWARE: Unchanged. Battery pack and leads are in place along with sternotomy wires. OTHER: No other significant finding. IMPRESSION: COPD. No acute findings. TECHNICAL DOCUMENTATION: JOB ID: [id number] [employer]- All Rights Reserved Reading location - IP/workstation name: [email or web address]
--- NOTE | 2019-05-11 16:59 | ER Document Report ---
ED Dizziness/Weakness - General Chief Complaint: Dizziness Stated Complaint: DIZZINESS,HEADACHE Time Seen by Provider: 05/11/19 14:37 Primary Care Provider: NANI TEJEDA MD [Primary Care Provider] - Follow up as needed Mode of Arrival: Ambulatory Notes: Pleasant 78-year-old male with CAD, hypertension with an AICD presents to the emergency department with chief complaint of dizziness, chest pressure, shortness of breath. Patient states this is been going on for 1 week. Patient states that the dizziness got worse over the last day and he just wants to know what is wrong with him. He describes the chest pain as a pressure that comes and goes but does admit to having stable angina. Patient denies any falls or syncopal episodes. Patient does have a history of dizziness and had a recent admission for the same chief complaint with a negative work-up. Patient denies any fevers or chills, nausea or vomiting, denies abdominal pain, denies any urinary symptoms, denies any acute vision changes. TRAVEL OUTSIDE OF THE [place] IN LAST 30 DAYS: No - Related Data Allergies/Adverse Reactions: iodine [Iodine] Allergy (Unknown, Verified 05/11/19 13:42) Itching morphine [Morphine] Allergy (Verified 05/11/19 13:42) itching oxycodone HCl [From Percocet] Allergy (Verified 05/11/19 13:42) Hallucinations Past Medical History - General Information source: Patient - Social History Smoking Status: Never Smoker Chew tobacco use (# tins/day): No Frequency of alcohol use: None Drug Abuse: None Family History: Reviewed & Not Pertinent, CAD - brother Patient has suicidal ideation: No Patient has homicidal ideation: No - Past Medical History Cardiac Medical History: Reports: Hx Atrial Fibrillation, Hx Congestive Heart Failure, Hx Coronary Artery Disease, Hx Hypercholesterolemia, Hx Hypertension Denies: Hx Heart Attack Pulmonary Medical History: Denies: Hx Tuberculosis Neurological Medical History: Denies: Hx Seizures Renal/ Medical History: Reports: Hx Benign Prostatic Hyperplasia - Prostate surgery. Denies: Hx Peritoneal Dialysis GI Medical History: Reports: Hx Gastroesophageal Reflux Disease Musculoskeletal Medical History: Reports Hx Arthritis, Reports Hx Gout Psychiatric Medical History: Reports: Hx Depression Past Surgical History: Reports: Hx Appendectomy, Hx Cardiac Catheterization, Hx Cardiac Surgery - Pacemaker, Hx Cholecystectomy, Hx Coronary Artery Bypass Graft, Hx Internal Defibrillator, Hx Open Heart Surgery - CABG April 2015, Hx Orthopedic Surgery - Knee replacement - Immunizations Immunizations up to date: Yes Hx Diphtheria, Pertussis, Tetanus Vaccination: Yes Hx Pneumococcal Vaccination: 10/02/16 Review of Systems - Review of Systems Constitutional: See HPI EENT: See HPI Cardiovascular: See HPI Respiratory: See HPI Gastrointestinal: See HPI Genitourinary: See HPI Male Genitourinary: No symptoms reported Musculoskeletal: No symptoms reported Skin: No symptoms reported Hematologic/Lymphatic: No symptoms reported Neurological/Psychological: See HPI Physical Exam - Vital signs Vitals: Temp Pulse Resp BP Pulse Ox 97.5 F 89 16 128/80 H 100 05/11/19 13:47 05/11/19 13:47 05/11/19 13:47 05/11/19 13:47 05/11/19 13:47 - Notes Notes: PHYSICAL EXAMINATION: Reviewed vital signs and charting by RN GENERAL: Alert, interacts well. No acute distress. HEAD: Normocephalic, atraumatic. EYES: Pupils equal and round. Extraocular movements intact. ENT: Oral mucosa moist, tongue midline. NECK: Full range of motion. Trachea midline. LUNGS: Clear to auscultation bilaterally, no wheezes, rales, or rhonchi. No respiratory distress. HEART: Regular rate and rhythm. No murmur ABDOMEN: soft, non-tender. No distention. Bowel sounds present EXTREMITIES: Moves all 4 extremities spontaneously. No edema, No cyanosis. NEURO: A &O X 3, normal speech, PERRL, EOMI, SILT, follows commands in all 4 extremities, no gross abnormalities of cranial nerves, no focal neuro deficits, no pronator drift, [id number] testing normal, rapid alternating hand movements normal, [id number] normal, director talent acquisition strength 5/5 bilateral, 5/5 strength in both proximal and distal upper and lower extremities PSYCH: Normal affect, normal mood. SKIN: Warm, dry, normal turgor. No rashes or lesions noted. Course - Re-evaluation Re-evalutation: 05/11/19 16:59 Patient is overall very well-appearing and nontoxic. Vital signs within normal limits, nursing notes reviewed. CT head was negative for any acute intracranial pathology or bleed. Chest x-ray normal, lab works all within normal limits. Initial troponin negative. Briefly discussed with attending physician and plan is to get some orthostatic vital signs and ambulate the patient in the emergency department. Because this is a chronic issue with what appears to be an acute exacerbation of dizziness if he does have negative orthostatics and is able to ambulate we may be able to discharge this patient home. 05/11/19 18:06 CLINTON Vela and reported to me that patient complained of acute shortness of breath so she obtained an EKG which showed a ventricular paced rhythm. I briefly discussed with the attending physician who read the EKG and stated that the pacemaker doing what is supposed to be doing. I called [employer] to interrogate the pacemaker and they are going to send a shared services representative to the emergency department, ?Victor Hugo Yap, . Pacemaker information: [id number], [id number]. 05/11/19 19:05 Orthostatic vital signs completed and patient's heart rate was 70 most likely due to pacing but was otherwise positive as laying blood pressure was 153/76 and sitting blood pressure was 123/73, standing blood pressure was the same 123/75. 05/11/19 19:48 05/11/19 20:50 Pacemaker was interrogated and showed normal function. The battery life is less than 6 months and patient has been advised. A delta troponin was obtained and was negative. Repeat EKG showed normal sinus rhythm that is being atrially paced. Revisited the patient with my supervising physician Dr. Renteria and we assessed the patient in the room together. Plan is to discharge patient home with strict follow-up with his primary care doctor tomorrow morning as the patient needs a neurology consult. Discussed the findings with the patient and through shared decision-making we agreed that patient is comfortable going home. At this time he is stable for discharge, vital signs are all within normal limits, and he is stable. - Vital Signs Vital signs: Temp Pulse Resp BP Pulse Ox 97.5 F 70 21 H 122/73 100 05/11/19 13:47 05/11/19 18:29 05/11/19 20:01 05/11/19 20:00 05/11/19 20:01 - Laboratory Result Diagrams: 05/11/19 15:04 05/11/19 15:04 Laboratory results interpreted by me: 05/11/19 05/11/19 15:04 15:04 WBC 3.3 L RBC 4.25 L Hgb 12.9 L RDW 15.1 H Sodium 136.2 L Glucose 74 L Alkaline Phosphatase 141 H Discharge - Discharge Clinical Impression: Dizziness, Encounter for interrogation of cardiac pacemaker Condition: Good Disposition: HOME, SELF-CARE Additional Instructions: You were seen today for lightheadedness/dizziness. The exact cause of your symp toms is unclear but your workup here is reassuring without any concerning findings. Please follow closely with your primary care physician tomorrow. I strongly recommend that you get a neurologist consult to further look into this dizziness issue. We interrogated your pacemaker and it is working properly but the battery life is less than 6 months. Recommend that you follow-up with Dr. Levin for potential battery replacement. Also, your work-up was completely negative and there is no evidence of any cardiac ischemia or heart attack. Return if you pass out, have additional episodes of lightheadedness, develop weakness/numbness, have persistent vomiting, worsening chest pain, shortness of breath or any other symptoms that are concerning to you. The interrogation of your pacemaker showed that it is functioning normally. Please follow-up with your pallet repairer. Referrals: NANI TEJEDA MD [Primary Care Provider] - 05/12/19 8:00 am
--- NOTE | 2019-05-11 21:02 | EKG REPORT ---
SEVERITY:- BORDERLINE ECG - SINUS RHYTHM PROBABLE LEFT ATRIAL ABNORMALITY : Confirmed by: Ankita Lo MD 11-May-2019 21:01:34
--- NOTE | 2019-05-11 21:02 | EKG REPORT ---
SEVERITY:- ABNORMAL ECG - ATRIAL-PACED COMPLEXES PROBABLE LEFT ATRIAL ABNORMALITY NONSPECIFIC T ABNORMALITIES, ANTERIOR LEADS : Confirmed by: Ankita Lo MD 11-May-2019 21:01:16
[2019-05-11 21:13] VITALS: BP 135/76
--- NOTE | 2019-05-12 09:27 | EKG REPORT ---
SEVERITY:- ABNORMAL ECG - VENTRICULAR-PACED RHYTHM : Confirmed by: Ankita Lo MD 12-May-2019 09:26:33
== END 2019-05-11 21:11 | disposition home or self-care (01) ==
LOC: ER 13:41
DX: R42 Dizziness and giddiness (principal); Z45.018 Encounter for adjustment and management of other part of cardiac pacemaker; I25.119 Atherosclerotic heart disease of native coronary artery with unspecified angina pectoris; R07.89 Other chest pain; R06.02 Shortness of breath; I10 Essential (primary) hypertension; Z95.810 Presence of automatic (implantable) cardiac defibrillator; Z95.1 Presence of aortocoronary bypass graft; Z88.8 Allergy status to other drugs, medicaments and biological substances; Z88.5 Allergy status to narcotic agent
CPT/HCPCS: 36415; 70450; 71046; 80053; 83735; 84484; 85025; 93005; 93010; 99285

== ENCOUNTER 2019-06-11 18:44 | Emergency (ER) | payer OTHER, MEDICARE ==
--- NOTE | 2019-06-11 19:10 | ER Document Report ---
ED Medical Screen (RME) - General Chief Complaint: Leg Injury Stated Complaint: LEG INJURY Time Seen by Provider: 06/11/19 19:05 Primary Care Provider: NANI TEJEDA MD [Primary Care Provider] - Follow up as needed TRAVEL OUTSIDE OF THE [place] IN LAST 30 DAYS: No - HPI Notes: 06/11/19 19:09 Patient is an 79-year-old male who presents complaining left hip and left knee pain status post fall on cement. Patient states that his truck started moving out of his garage and he tried to jump in, but could not keep his balance and landed on the cement on his left side. He did not hit his head or lose conscious. Patient states that he has been relating since then and weightbearing, but does have a limp. No other concerns or complaints. He is on blood thinners but did not hit his head. I have treated and performed a rapid initial assessment of this patient. A comprehensive ED assessment and evaluation of the patient, analysis of test results and completion of medical decision making process will be conducted by additional ED providers. PHYSICAL EXAMINATION: GENERAL: Well-appearing, well-nourished and in no acute distress. A&Ox4. Answers questions appropriately. LLE: + mild tenderness left lateral hip and anterior knee. N/V intact distal. FROM. - Related Data Allergies/Adverse Reactions: iodine [Iodine] Allergy (Unknown, Verified 05/11/19 13:42) Itching morphine [Morphine] Allergy (Verified 05/11/19 13:42) itching oxycodone HCl [From Percocet] Allergy (Verified 05/11/19 13:42) Hallucinations Past Medical History - Past Medical History Cardiac Medical History: Reports: Hx Atrial Fibrillation, Hx Congestive Heart Failure, Hx Coronary Artery Disease, Hx Hypercholesterolemia, Hx Hypertension Denies: Hx Heart Attack Pulmonary Medical History: Denies: Hx Tuberculosis Neurological Medical History: Denies: Hx Seizures Renal/ Medical History: Reports: Hx Benign Prostatic Hyperplasia - Prostate surgery. Denies: Hx Peritoneal Dialysis GI Medical History: Reports: Hx Gastroesophageal Reflux Disease Musculoskeltal Medical History: Reports Hx Arthritis, Reports Hx Gout Psychiatric Medical History: Reports: Hx Depression Past Surgical History: Reports: Hx Appendectomy, Hx Cardiac Catheterization, Hx Cardiac Surgery - Pacemaker, Hx Cholecystectomy, Hx Coronary Artery Bypass Graft, Hx Internal Defibrillator, Hx Open Heart Surgery - CABG April 2015, Hx Orthopedic Surgery - Knee replacement - Immunizations Immunizations up to date: Yes Hx Diphtheria, Pertussis, Tetanus Vaccination: Yes Physical Exam - Vital signs Vitals: Temp Resp BP Pulse Ox 97.4 F 14 116/67 100 06/11/19 19:03 06/11/19 19:03 06/11/19 19:03 06/11/19 19:03 Course - Vital Signs Vital signs: Temp Pulse Resp BP Pulse Ox 97.4 F 14 116/67 100 06/11/19 19:03 06/11/19 19:03 06/11/19 19:03 06/11/19 19:03 Doctor's Discharge - Discharge Referrals: NANI TEJEDA MD [Primary Care Provider] - Follow up as needed
--- NOTE | 2019-06-11 19:50 | RADIOLOGY REPORT (SQ) ---
EXAM DESCRIPTION: HIP LEFT AP/LATERAL COMPLETED DATE/TIME: 06/11/2019 7:39 pm REASON FOR STUDY: pain s/p fall COMPARISON: None. NUMBER OF VIEWS: Two views. TECHNIQUE: AP pelvis and additional frog-leg view of the left hip. LIMITATIONS: None. FINDINGS: MINERALIZATION: Osteopenia. LEFT HIP: No fracture or dislocation. No worrisome bone lesions. RIGHT HIP: No fracture or dislocation. No worrisome bone lesions. PUBIS AND ISCHIUM: No fracture. PELVIS: No fracture. SACRUM: No fracture or dislocation. No worrisome bone lesions. LOWER LUMBAR SPINE: Spondylosis. SOFT TISSUES: Multiple clips in the pelvis. OTHER: No other significant finding. IMPRESSION: No fracture identified. TECHNICAL DOCUMENTATION: JOB ID: [id number] [employer]- All Rights Reserved Reading location - IP/workstation name: [email or web address]
--- NOTE | 2019-06-11 19:52 | ER Document Report ---
HPI - HPI Time Seen by Provider: 06/11/19 19:05 Pain Level: 4 Context: Patient is an 79-year-old male who presents the emergency department after a fall. He fell on cement. Patient was in his garage and his truck started to move and he tried to jump in and ended up landing on cement on his left side. Denies loss of consciousness. Patient is able to walk, but has a limp. Patient is currently on blood thinners. - CONSTITUTIONAL Constitutional: DENIES: Fever, Chills - EENT EENT: DENIES: Sore Throat - NEURO Neurology: DENIES: Headache - CARDIOVASCULAR Cardiovascular: DENIES: Chest pain - RESPIRATORY Respiratory: DENIES: Trouble Breathing, Coughing - GASTROINTESTINAL Gastrointestinal: DENIES: Abdominal Pain, Nausea, Patient vomiting - REPRODUCTIVE Reproductive: DENIES: : - MUSCULOSKELETAL Musculoskeletal: REPORTS: Extremity pain - Left hip and left knee. DENIES: Back Pain, Neck Pain, Swelling - DERM Skin Color: Normal Skin Problems: None Past Medical History - General Information source: Patient - Social History Smoking Status: Former Smoker Chew tobacco use (# tins/day): No Frequency of alcohol use: Occasional Drug Abuse: None Family History: Reviewed & Not Pertinent, CAD - brother Patient has suicidal ideation: No Patient has homicidal ideation: No - Past Medical History Cardiac Medical History: Reports: Hx Atrial Fibrillation, Hx Congestive Heart Failure, Hx Coronary Artery Disease, Hx Hypercholesterolemia, Hx Hypertension Denies: Hx Heart Attack Pulmonary Medical History: Denies: Hx Tuberculosis Neurological Medical History: Denies: Hx Seizures Renal/ Medical History: Reports: Hx Benign Prostatic Hyperplasia - Prostate surgery. Denies: Hx Peritoneal Dialysis GI Medical History: Reports: Hx Gastroesophageal Reflux Disease Musculoskeletal Medical History: Reports Hx Arthritis, Reports Hx Gout Psychiatric Medical History: Reports: Hx Depression Past Surgical History: Reports: Hx Appendectomy, Hx Cardiac Catheterization, Hx Cardiac Surgery - Pacemaker, Hx Cholecystectomy, Hx Coronary Artery Bypass Graft, Hx Internal Defibrillator, Hx Open Heart Surgery - CABG April 2015, Hx Orthopedic Surgery - Knee replacement - Immunizations Immunizations up to date: Yes Hx Diphtheria, Pertussis, Tetanus Vaccination: Yes Hx Pneumococcal Vaccination: 10/02/16 Vertical Provider Document - CONSTITUTIONAL Agree With Documented VS: Yes Exam Limitations: No Limitations General Appearance: No Apparent Distress - INFECTION CONTROL TRAVEL OUTSIDE OF THE [place] IN LAST 30 DAYS: No - HEENT HEENT: Atraumatic, Normocephalic, PERRLA - NECK Neck: Normal Inspection - RESPIRATORY Respiratory: Breath Sounds Normal, No Respiratory Distress - CARDIOVASCULAR Cardiovascular: Regular Rate Pulses: Normal: Radial, Posterior tibial, Dorsalis pedis - MUSCULOSKELETAL/EXTREMETIES Musculoskeletal/Extremeties: Tender - Left buttock at ishium, No Edema, Eccymosis - Left buttock at ishium. negative: FROM - Decreased range of motion to left hip joint - NEURO Level of Consciousness: Awake, Alert, Appropriate - DERM Integumentary: Warm, Dry, No Rash Course - Re-evaluation Re-evalutation: 06/11/19 Patient's x-rays are negative for any acute fractures. Patient is able to walk with assistance. Knee exam is unremarkable. Patient is able to adduct at hip flexor, but abduction he has pain. He is able to abduct his hip joint, but states that this a little painful. No vascular compromise noted. Dorsalis pedis pulses 2+. Capillary refill less than 3 seconds. Patient will be ordered and walker due to the patient being 79 years old I do not want to give him crutches, as this will increase his risk for falls. I highly recommended physical therapy for the patient. He will follow-up with his primary care provider. Patient already has tramadol at home. I have instructed him to take his tramadol as prescribed for pain relief. Instructed the patient to watch for increased swelling and bruising due to the patient being on blood thinners. Follow-up precautions were given. Verbal discharge instructions were given to the patient. They verbalized understanding. They are stable for discharge. - Vital Signs Vital signs: Temp Pulse Resp BP Pulse Ox 97.4 F 14 116/67 100 06/11/19 19:03 06/11/19 19:03 06/11/19 19:03 06/11/19 19:03 Discharge - Discharge Clinical Impression: Left hip pain Fall Qualifiers: Encounter type: initial encounter Qualified Code(s): W19.XXXA - Unspecified fall, initial encounter Left knee pain Qualifiers: Chronicity: acute Qualified Code(s): M25.562 - Pain in left knee Condition: Stable Disposition: HOME, SELF-CARE Additional Instructions: You were seen today in the emergency department after a fall. Your x-rays are normal. You are being sent home with a walker to help you walk around at home. Please follow-up with your primary care provider in regards to this visit. If you continue to have pain, see if you can get physical therapy. You can take your tramadol for pain. Return if you are unable to walk. Referrals: NANI TEJEDA MD [Primary Care Provider] - Follow up in 3-5 days
--- NOTE | 2019-06-11 19:53 | RADIOLOGY REPORT (SQ) ---
EXAM DESCRIPTION: KNEE LEFT 4 VIEW COMPLETED DATE/TIME: 06/11/2019 7:39 pm REASON FOR STUDY: pain s/p fall COMPARISON: None. NUMBER OF VIEWS: Four views. TECHNIQUE: AP, lateral, and both oblique radiographic images acquired of the left knee. LIMITATIONS: None. FINDINGS: MINERALIZATION: Osteopenia. BONES: No acute fracture or dislocation. No worrisome bone lesions. JOINT: Intact knee arthroplasty. SOFT TISSUES: No soft tissue swelling. No radio-opaque foreign body. OTHER: No other significant finding. IMPRESSION: Intact knee arthroplasty. TECHNICAL DOCUMENTATION: JOB ID: [id number] [employer] All Rights Reserved Reading location - IP/workstation name: [email or web address]
[2019-06-11 20:55] VITALS: BP 134/73
== END 2019-06-11 20:55 | disposition home or self-care (01) ==
LOC: ER 18:44
DX: M25.552 Pain in left hip (principal); M25.562 Pain in left knee; W18.39XA Other fall on same level, initial encounter; Y92.008 Other place in unspecified non-institutional (private) residence as the place of occurrence of the external cause; I48.91 Unspecified atrial fibrillation; I50.9 Heart failure, unspecified; E78.00 Pure hypercholesterolemia, unspecified; I11.0 Hypertensive heart disease with heart failure; Z90.49 Acquired absence of other specified parts of digestive tract; Z95.810 Presence of automatic (implantable) cardiac defibrillator; Z96.659 Presence of unspecified artificial knee joint
CPT/HCPCS: 99283

== ENCOUNTER 2019-08-28 21:59 | Emergency (ER) | payer MEDICARE, OTHER ==
[2019-08-28 23:43] LABS: ABSOLUTE EOSINOPHILS # (AUTO) 0.1 10^3/uL (0.0-0.6); ABSOLUTE LYMPHOCYTES (AUTO) 0.7 10^3/uL (0.5-4.7); ABSOLUTE MONOCYTES (AUTO) 0.5 10^3/uL (0.1-1.4); ABSOLUTE NEUT (AUTO) 2.9 10^3/uL (1.7-8.2); BASOPHILS % (AUTO) 0.3 % (0-2); EOSINOPHILS % (AUTO) 2.5 % (0-6); HEMATOCRIT 36.2 % (37.9-51.0); HEMOGLOBIN 12.2 g/dL (13.5-17.0); LYMPHOCYTES % (AUTO) 16.2 % (13-45); MEAN CORPUSCULAR HEMOGLOBIN 30.6 pg (27.0-33.4); MEAN CORPUSCULAR HGB CONC 33.8 g/dL (32.0-36.0); MEAN CORPUSCULAR VOLUME 91 fl (80-97); MONOCYTES % (AUTO) 12.4 % (3-13); PLATELET COUNT 229 10^3/uL (150-450); RED BLOOD COUNT 3.99 10^6/uL (4.35-5.55); RED CELL DISTRIBUTION WIDTH 13.6 % (11.5-14.0); SEGMENTED NEUTROPHILS % (AUTO) 68.6 % (42-78); TOTAL CELLS COUNTED % (AUTO) 100 %; WHITE BLOOD COUNT 4.2 10^3/uL (4.0-10.5)
--- NOTE | 2019-08-28 23:55 | RADIOLOGY REPORT (SQ) ---
EXAM DESCRIPTION: CLINICAL HISTORY: 79 years Male defib fired COMPARISON: 05/11/2019 FINDINGS: The cardiomediastinal silhouette appears unremarkable. No consolidating infiltrates or pleural effusions. No pneumothorax. Elevation of the left hemidiaphragm with a small amount of atelectasis the left base. IMPRESSION: Elevation of the left hemidiaphragm with atelectasis in the left lung base Stable appearance of the pacemaker
[2019-08-29 00:04] LABS: ALBUMIN 3.6 g/dL (3.5-5.0); ALKALINE PHOSPHATASE 128 U/L (38-126); ANION GAP 11 (5-19); ASPARTATE AMINO TRANSFERASE 22 U/L (17-59); BILIRUBIN,DIRECT 0.2 mg/dL (0.0-0.4); BILIRUBIN,TOTAL 0.3 mg/dL (0.2-1.3); BLOOD UREA NITROGEN 17 mg/dL (7-20); CARBON DIOXIDE 28 mmol/L (22-30); CHLORIDE 100 mmol/L (98-107); CREATINE KINASE 78 U/L (55-170); GLUCOSE 121 mg/dL (75-110); POTASSIUM 3.8 mmol/L (3.6-5.0); TOTAL PROTEIN 6.9 g/dL (6.3-8.2)
[2019-08-29 00:25] LABS: CREATINE KINASE MB 1.09 ng/mL (<4.55)
[2019-08-29 00:26] LABS: TROPONIN I < 0.012 ng/mL
--- NOTE | 2019-08-29 04:11 | ER Document Report ---
ED Cardiac - General Chief Complaint: Arrhythmia Stated Complaint: PACEMAKER FIRED Time Seen by Provider: 08/29/19 03:30 Primary Care Provider: NANI TEJEDA MD [Primary Care Provider] - Follow up as needed Mode of Arrival: Ambulatory Information source: Patient TRAVEL OUTSIDE OF THE [place] IN LAST 30 DAYS: No - HPI Patient complains to provider of: Other - Patient reports that last night he noted a humming sound that lasted a few seconds and he thought it was from his defibrillator pacemaker. Denied any chest pain palpitations sweats or vomiting. Quality of pain: None Severity now: None Pain level currently: Denies Cardiac risk factors: Hypertension Similar symptoms previously: No Recently seen / treated by doctor: No Notes: Patient reports he was resting at home and he noted a humming sound lasted a few seconds and he heard it twice and he thought it was coming from his pacemaker which got his attention. Therefore he drove himself to the hospital he denies having chest pain shortness of breath palpitations nausea sweats or vomiting. Patient states he is never heard that sound before and is unsure what brought it on this evening. - Related Data Allergies/Adverse Reactions: iodine [Iodine] Allergy (Unknown, Verified 08/28/19 23:06) Itching morphine [Morphine] Allergy (Verified 08/28/19 23:06) itching oxycodone HCl [From Percocet] Allergy (Verified 08/28/19 23:06) Hallucinations Home Medications: blood pressure medicine. aspirin. stomach medicine Past Medical History - Social History Smoking Status: Never Smoker Chew tobacco use (# tins/day): No Frequency of alcohol use: None Drug Abuse: None Lives with: Alone Family History: Reviewed & Not Pertinent, CAD - brother Patient has suicidal ideation: No Patient has homicidal ideation: No - Past Medical History Cardiac Medical History: Reports: Hx Atrial Fibrillation, Hx Congestive Heart Failure, Hx Coronary Artery Disease, Hx Hypercholesterolemia, Hx Hypertension Denies: Hx Heart Attack Pulmonary Medical History: Denies: Hx Tuberculosis Neurological Medical History: Denies: Hx Seizures Renal/ Medical History: Reports: Hx Benign Prostatic Hyperplasia - Prostate surgery. Denies: Hx Peritoneal Dialysis GI Medical History: Reports: Hx Gastroesophageal Reflux Disease Musculoskeletal Medical History: Reports Hx Arthritis, Reports Hx Gout Psychiatric Medical History: Reports: Hx Depression Past Surgical History: Reports: Hx Appendectomy, Hx Cardiac Catheterization, Hx Cardiac Surgery - Pacemaker October 2012, Hx Cholecystectomy, Hx Coronary Artery Bypass Graft, Hx Internal Defibrillator, Hx Open Heart Surgery - CABG April 2015, Hx Orthopedic Surgery - Knee replacement - Immunizations Immunizations up to date: Yes Hx Diphtheria, Pertussis, Tetanus Vaccination: Yes Hx Pneumococcal Vaccination: 10/02/16 Review of Systems - Review of Systems Constitutional: See HPI Cardiovascular: See HPI Physical Exam - Vital signs Vitals: Temp Pulse Resp BP Pulse Ox 98.0 F 79 16 126/67 H 96 08/28/19 22:19 08/28/19 22:19 08/28/19 22:19 08/28/19 22:19 08/28/19 22:19 Interpretation: Normal - General General appearance: Appears well, Alert - HEENT Head: Normocephalic, Atraumatic Eyes: Normal Pupils: PERRL - Respiratory Respiratory status: No respiratory distress Chest status: Nontender Breath sounds: Normal Chest palpation: Normal - Cardiovascular Rhythm: Regular Heart sounds: Normal auscultation Murmur: No - Abdominal Inspection: Normal Distension: No distension Bowel sounds: Normal Tenderness: Nontender Organomegaly: No organomegaly - Back Back: Normal, Nontender - Extremities General upper extremity: Normal inspection, Nontender, Normal color, Normal ROM, Normal temperature General lower extremity: Normal inspection, Nontender, Normal color, Normal ROM, Normal temperature, Normal weight bearing. No: Moira's sign - Neurological Neuro grossly intact: Yes Cognition: Normal Orientation: AAOx4 Letty Coma Scale Eye Opening: Spontaneous Letty Coma Scale Verbal: Oriented [place] Coma Scale Motor: Obeys Commands [place] Coma Scale Total: 15 Speech: Normal Motor strength normal: LUE, RUE, LLE, RLE Sensory: Normal - Psychological Associated symptoms: Normal affect, Normal mood - Skin Skin Temperature: Warm Skin Moisture: Dry Skin Color: Normal Course - Re-evaluation Re-evalutation: 08/29/19 04:12 Patient has had no signs of chest pain shortness of breath sweats nausea vomiting. 08/29/19 04:16 Patient had his [employer] medical defibrillator interrogated by the [employer]. There was no report of any V. tach or V. fib since June 23, 2019 and the patient does not have any alerts that there was any V. tach that occurred when he heard the humming sounds. - Vital Signs Vital signs: Temp Pulse Resp BP Pulse Ox 98.0 F 79 18 123/74 97 08/28/19 22:19 08/28/19 22:19 08/29/19 00:17 08/29/19 00:17 08/29/19 00:17 - Laboratory Result Diagrams: 08/28/19 23:35 08/28/19 23:35 Laboratory results interpreted by me: 08/28/19 08/28/19 23:35 23:35 RBC 3.99 L Hgb 12.2 L Hct 36.2 L Glucose 121 H Alkaline Phosphatase 128 H 08/29/19 04:12 Lab values are within normal limits including cardiac enzymes x2 have remained flat and normal. Chest x-ray does not show any acute process regarding his chest and his pacemaker is in place no broken wires seen. - EKG Interpretation by Me Additional EKG results interpreted by me: 08/29/19 04:13 Twelve-lead EKG shows atrial fibrillation rhythm with a ventricular rate of 70, probable left atrial abnormality. Also borderline left axis deviation and nonspecific T wave abnormalities anterior lateral leads Discharge - Discharge Clinical Impression: Cardiac pacemaker syndrome Condition: Stable Disposition: HOME, SELF-CARE Additional Instructions: Your cardiac pacemaker was interrogated by the [employer]. The report shows that there was no V. tach V. fib episodes since June 23, 2019 and that the parameters that were checked show that things were in the normal parameters. No acute process was noted to have occurred based on the sounds that you heard coming from your pacemaker I do recommend that you follow-up with your anaesthetic technician regarding further interrogation of your pacemaker and also of your the [place] rhythm. Return to the emergency department if there is any problems. Referrals: NANI TEJEDA MD [Primary Care Provider] - Follow up as needed
[2019-08-29 04:48] VITALS: BP 119/77
--- NOTE | 2019-08-29 19:35 | EKG REPORT ---
SEVERITY:- ABNORMAL ECG - SINUS RHYTHM PROBABLE LEFT ATRIAL ABNORMALITY BORDERLINE LEFT AXIS DEVIATION NONSPECIFIC T ABNORMALITIES, ANT-LAT LEADS : Confirmed by: Ankita Lo MD 29-Aug-2019 19:34:17
== END 2019-08-29 04:42 | disposition home or self-care (01) ==
LOC: ER 21:59
DX: R00.2 Palpitations (principal); Z95.0 Presence of cardiac pacemaker; I48.91 Unspecified atrial fibrillation; I11.0 Hypertensive heart disease with heart failure; I50.9 Heart failure, unspecified; I25.10 Atherosclerotic heart disease of native coronary artery without angina pectoris
CPT/HCPCS: 36415; 71046; 80053; 82550; 82553; 84484; 85025; 93005; 93010; 99284

== ENCOUNTER 2019-12-16 17:20 | Emergency (ER) | payer MEDICARE, OTHER ==
--- NOTE | 2019-12-16 18:18 | ER Document Report ---
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 Pt c/o [place] since fall 1 week ago. Pt states he fell onto concrete 1 week ago and has a 3/4 inch linear scrape to back of head. Pt advises unsure if he had LOC.Today got up from bed quickly and fell against wall in bedroom. Denies injury ,LOC, N/V. Bilateral strength, coordination and movement present X4 extremities intact. Hx blurred vision, being treated by MD with eye drops. Other medical hx: pacemaker, double cardiac bypass, HTN, Blurred vision, [place], Prostate CA. V/S obtained. My note; 79-year-old black male arrives with chief complaint of right temporal headache after he heard his calling earlier today and arose from his bed striking the wall with his right jainism. Patient has been having headaches since he hit the back of his head pointing to a dried laceration with hair avulsed off approximately 2 and half centimeters around the occipital condyle.. This wound occurred 1 week ago when he was getting some close out of the dryer and slipped backwards striking his head on some brick edge. 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 He thinks he passed out from the heat or drinking bad water.. He sees Dr. Keita as precipitator but denies any chest pain. Does have a defibrillator pacer left upper chest. He denies any neck pain denies any neuropathy or sensation or motor changes. He denies any double vision but does complain of some blurry vision. He has had some dizziness but denies any hearing problems. TRAVEL OUTSIDE OF THE [place] IN LAST 30 DAYS: No - Related Data Allergies/Adverse Reactions: iodine [Iodine] Allergy (Unknown, Verified 08/28/19 23:06) Itching codeine Allergy (Verified 12/16/19 18:53) morphine [Morphine] Allergy (Verified 08/28/19 23:06) itching oxycodone HCl [From Percocet] Allergy (Verified 08/28/19 23:06) Hallucinations Home Medications: HTN med. Heart med. Asa 81 mg daily. Stomach med Past Medical History - General Information source: Patient - Social History Smoking Status: Former Smoker Cigarette use (# per day): No Chew tobacco use (# tins/day): No Smoking Education Provided: No Frequency of alcohol use: None Drug Abuse: None Lives with: Family Family History: Reviewed & Not Pertinent, CAD - brother Patient has suicidal ideation: No Patient has homicidal ideation: No - Past Medical History Cardiac Medical History: Reports: Hx Atrial Fibrillation, Hx Congestive Heart Failure, Hx Coronary Artery Disease, Hx Hypercholesterolemia, Hx Hypertension Denies: Hx Heart Attack Pulmonary Medical History: Denies: Hx Tuberculosis Neurological Medical History: Denies: Hx Seizures Renal/ Medical History: Reports: Hx Benign Prostatic Hyperplasia - Prostate surgery. Denies: Hx Peritoneal Dialysis GI Medical History: Reports: Hx Gastroesophageal Reflux Disease Musculoskeletal Medical History: Reports Hx Arthritis, Reports Hx Gout Psychiatric Medical History: Reports: Hx Depression Past Surgical History: Reports: Hx Appendectomy, Hx Cardiac Catheterization, Hx Cardiac Surgery - Pacemaker October 2012, Hx Cholecystectomy, Hx Coronary Artery Bypass Graft, Hx Internal Defibrillator, Hx Open Heart Surgery - CABG April 2015, Hx Orthopedic Surgery - Knee replacement - Immunizations Immunizations up to date: Yes Hx Diphtheria, Pertussis, Tetanus Vaccination: Yes Hx Pneumococcal Vaccination: 10/02/16 Review of Systems - Review of Systems Constitutional: See HPI, Other - recent injury EENT: No symptoms reported, Vertigo Cardiovascular: No symptoms reported Respiratory: No symptoms reported Gastrointestinal: No symptoms reported Genitourinary: No symptoms reported Male Genitourinary: No symptoms reported Musculoskeletal: No symptoms reported Skin: See HPI, Other - Abrasion to dorsal scalp occipital area Hematologic/Lymphatic: No symptoms reported Neurological/Psychological: See HPI, Headaches Physical Exam - Vital signs Vitals: Temp Pulse Resp BP Pulse Ox 97.7 F 70 16 165/85 H 99 12/16/19 17:30 12/16/19 17:30 12/16/19 17:30 12/16/19 17:30 12/16/19 17:30 Interpretation: Normal - General General appearance: Alert - HEENT Head: Normocephalic, Other - Traumatic abrasion to occipital head scalp as per HPI approximately 2 and half centimeters diameter skin and hair avulsion with a sagittal direction healing laceration approximately 2 cm in length.. Also tender right jainism on palpation with question of hematoma. Eyes: Normal Conjunctiva: Normal Cornea: Normal Extraocular movements intact: Yes Eyelashes: Normal Pupils: PERRL External canal: Normal Tympanic membrane: Bulging, Serous effusion Sinus: Normal Nasal: Normal Mouth/Lips: Normal Mucous membranes: Normal Pharynx: Normal Neck: Normal - Respiratory Respiratory status: No respiratory distress Chest status: Nontender Breath sounds: Normal Chest palpation: Normal - Cardiovascular Rhythm: Regular Heart sounds: Normal auscultation Murmur: No Friction rub: No Kate's crunch: No - Abdominal Inspection: Normal Distension: No distension Bowel sounds: Normal Tenderness: Nontender Organomegaly: No organomegaly - Rectal Hemorrhoids: Other - deferred - Genitourinary Scrotum: Other - deferred - Back Back: Normal, Nontender - Extremities General upper extremity: Normal inspection General lower extremity: Normal inspection - Neurological Neuro grossly intact: Yes Cognition: Normal Orientation: AAOx4 Letty Coma Scale Eye Opening: Spontaneous Letty Coma Scale Verbal: Oriented [place] Coma Scale Motor: Obeys Commands [place] Coma Scale Total: 15 Speech: Normal Cranial nerves: Normal Cerebellar coordination: Normal Motor strength normal: LUE, RUE, LLE, RLE - Psychological Associated symptoms: Normal affect - Skin Skin Temperature: Warm Skin Moisture: Dry Course - Vital Signs Vital signs: Temp Pulse Resp BP Pulse Ox 97.7 F 70 16 165/85 H 99 12/16/19 17:30 12/16/19 17:30 12/16/19 17:30 12/16/19 17:30 12/16/19 17:30 - Laboratory Result Diagrams: 12/16/19 18:42 12/16/19 18:42 Laboratory results interpreted by me: 12/16/19 12/16/19 18:42 18:42 RBC 4.02 L Hgb 12.3 L Hct 36.3 L RDW 15.9 H Anion Gap 3 L - Diagnostic Test Radiology reviewed: Reports reviewed - EKG Interpretation by Vt EKG shows normal: Sinus rhythm Discharge - Discharge Clinical Impression: Serous otitis media Qualifiers: Chronicity: acute Laterality: bilateral Recurrence: not specified as recurrent Qualified Code(s): H65.03 - Acute serous otitis media, bilateral Head injury Qualifiers: Encounter type: initial encounter Qualified Code(s): S09.90XA - Unspecified injury of head, initial encounter HTN (hypertension) Qualifiers: Hypertension type: unspecified Qualified Code(s): I10 - Essential (primary) hypertension Condition: Good Disposition: HOME, SELF-CARE Additional Instructions: Follow-up with personal doctor return to ER as needed take medicines as directed encourage fluids Prescriptions: Meclizine HCl [Antivert 25 mg Tablet] 25 mg PO TID PRN #21 tablet PRN Reason: Referrals: NANI TEJEDA MD [Primary Care Provider] - Follow up as needed
--- NOTE | 2019-12-16 18:49 | RADIOLOGY REPORT (SQ) ---
EXAM DESCRIPTION: CT HEAD WITHOUT IMAGES COMPLETED DATE/TIME: 12/16/2019 6:37 pm REASON FOR STUDY: head injury COMPARISON: 05/11/2019 TECHNIQUE: Axial images acquired through the brain without intravenous contrast. Images reviewed wi th bone, brain and subdural windows. Additional sagittal and coronal reconstructions were generated. Images stored on PACS. All CT scanners at this facility use dose modulation, iterative reconstruction, and/or weight based d osing when appropriate to reduce radiation dose to as low as reasonably achievable (ALARA). [facility]: Dose Right [facility]: CareDose [facility]: Dose Right [facility]: Teradose 4D [facility]: Smart [employer] RADIATION DOSE: CT Rad equipment meets quality standard of care and radiation dose reduction techniq ues were employed. CTDIvol: 53.2 mGy. DLP: 991 mGy-cm. mGy. LIMITATIONS: None. FINDINGS: VENTRICLES: Normal size and contour. Cavum septum pellucidum. CEREBRUM: No masses. No hemorrhage. No midline shift. No evidence for acute infarction. Normal gra y/white matter differentiation. No areas of low density in the white matter. CEREBELLUM: No masses. No hemorrhage. No alteration of density. No evidence for acute infarction. EXTRAAXIAL SPACES: No fluid collections. No masses. ORBITS AND GLOBE: No intra- or extraconal masses. Normal contour of globe without masses. CALVARIUM: No fracture. PARANASAL SINUSES: No fluid or mucosal thickening. SOFT TISSUES: No mass or hematoma. OTHER: No other significant finding. IMPRESSION: NORMAL BRAIN CT WITHOUT CONTRAST. EVIDENCE OF ACUTE STROKE: NO. COMMENT: Quality ID # [id number]: Final reports with documentation of one or more dose reduction techniques (e.g., Automated exposure control, adjustment of the mA and/or kV according to patient size, use of iterative reconstruction technique) TECHNICAL DOCUMENTATION: JOB ID: [id number] 2010 [employer]- All Rights Reserved Reading location - IP/workstation name: [email or web address]
--- NOTE | 2019-12-16 18:50 | RADIOLOGY REPORT (SQ) ---
EXAM DESCRIPTION: CT CERVICAL SPINE WITHOUT IMAGES COMPLETED DATE/TIME: 12/16/2019 6:37 pm REASON FOR STUDY: head injury COMPARISON: None. TECHNIQUE: Axial images acquired through the cervical spine without intravenous contrast. Images re viewed with lung, soft tissue and bone windows. Reconstructed coronal and sagittal MPR images review ed. Images stored on PACS. All CT scanners at this facility use dose modulation, iterative reconstruction, and/or weight based d osing when appropriate to reduce radiation dose to as low as reasonably achievable (ALARA). [facility]: Dose Right [facility]: CareDose [facility]: Dose Right [facility]: Teradose 4D [facility]: [employer] RADIATION DOSE: CT Rad equipment meets quality standard of care and radiation dose reduction techniq ues were employed. CTDIvol: 19.4 mGy. DLP: 355 mGy-cm. mGy. LIMITATIONS: None. FINDINGS: ALIGNMENT: Anatomic. MINERALIZATION: Normal. VERTEBRAL BODIES: No fractures or dislocation. DISCS: Multilevel disc space narrowing with osteophytes. FACETS, LATERAL MASSES, POSTERIOR ELEMENTS: Facet arthropathy. No fractures. No dislocation. No ac [place] findings. HARDWARE: None in the spine. VISUALIZED RIBS: No fractures. LUNG APICES AND SOFT TISSUES: No significant or acute findings. OTHER: No other significant finding. IMPRESSION: CHRONIC DEGENERATIVE CHANGES. NO ACUTE FINDINGS. TECHNICAL DOCUMENTATION: JOB ID: [id number] Quality ID # [id number]: Final reports with documentation of one or more dose reduction techniques (e.g., Au tomated exposure control, adjustment of the mA and/or kV according to patient size, use of iterative reconstruction technique) 2010 [employer]- All Rights Reserved Reading location - IP/workstation name: [email or web address]
[2019-12-16 18:58] LABS: ABSOLUTE EOSINOPHILS # (AUTO) 0.1 10^3/uL (0.0-0.6); ABSOLUTE LYMPHOCYTES (AUTO) 0.7 10^3/uL (0.5-4.7); ABSOLUTE MONOCYTES (AUTO) 0.4 10^3/uL (0.1-1.4); ABSOLUTE NEUT (AUTO) 3.1 10^3/uL (1.7-8.2); BASOPHILS % (AUTO) 0.5 % (0-2); EOSINOPHILS % (AUTO) 3.1 % (0-6); HEMATOCRIT 36.3 % (37.9-51.0); HEMOGLOBIN 12.3 g/dL (13.5-17.0); LYMPHOCYTES % (AUTO) 15.7 % (13-45); MEAN CORPUSCULAR HEMOGLOBIN 30.6 pg (27.0-33.4); MEAN CORPUSCULAR HGB CONC 33.9 g/dL (32.0-36.0); MEAN CORPUSCULAR VOLUME 90 fl (80-97); PLATELET COUNT 240 10^3/uL (150-450); RED BLOOD COUNT 4.02 10^6/uL (4.35-5.55); RED CELL DISTRIBUTION WIDTH 15.9 % (11.5-14.0); SEGMENTED NEUTROPHILS % (AUTO) 71.7 % (42-78); TOTAL CELLS COUNTED % (AUTO) 100 %; WHITE BLOOD COUNT 4.4 10^3/uL (4.0-10.5)
[2019-12-16 19:23] LABS: ALBUMIN 3.8 g/dL (3.5-5.0); ALKALINE PHOSPHATASE 117 U/L (38-126); ASPARTATE AMINO TRANSFERASE 25 U/L (17-59); BILIRUBIN,TOTAL 0.3 mg/dL (0.2-1.3); BLOOD UREA NITROGEN 19 mg/dL (7-20); CALCIUM 9.3 mg/dL (8.4-10.2); CHLORIDE 105 mmol/L (98-107); GLUCOSE 102 mg/dL (75-110); POTASSIUM 4.8 mmol/L (3.6-5.0)
[2019-12-16 19:28] LABS: CARBON DIOXIDE 30 mmol/L (22-30)
[2019-12-16 19:30] LABS: ANION GAP 3 (5-19)
[2019-12-16 19:33] LABS: CREATINE KINASE MB 1.04 ng/mL (<4.55)
--- NOTE | 2019-12-16 19:33 | EKG REPORT ---
SEVERITY:- ABNORMAL ECG - ATRIAL-PACED RHYTHM BORDERLINE T ABNORMALITIES, ANT-LAT LEADS : Confirmed by: Nelson Jamison MD 16-Dec-2019 19:32:25
[2019-12-16 19:40] LABS: TROPONIN I < 0.012 ng/mL
[2019-12-16 20:07] VITALS: BP 157/86
== END 2019-12-16 20:10 | disposition home or self-care (01) ==
LOC: ER 17:20
DX: S09.90XA Unspecified injury of head, initial encounter (principal); S00.01XA Abrasion of scalp, initial encounter; H65.03 Acute serous otitis media, bilateral; H53.8 Other visual disturbances; R51 Headache; W19.XXXA Unspecified fall, initial encounter; I10 Essential (primary) hypertension; Z85.46 Personal history of malignant neoplasm of prostate; Z95.0 Presence of cardiac pacemaker; Z91.81 History of falling; Z88.8 Allergy status to other drugs, medicaments and biological substances; Z79.899 Other long term (current) drug therapy; Z79.82 Long term (current) use of aspirin; Z87.891 Personal history of nicotine dependence; I50.9 Heart failure, unspecified; I11.0 Hypertensive heart disease with heart failure; I25.10 Atherosclerotic heart disease of native coronary artery without angina pectoris
CPT/HCPCS: 36415; 70450; 72125; 80053; 82553; 84484; 85025; 93005; 93010; 99284